=== PATIENT | male | born 1950 | race Caucasian/White ===

== ENCOUNTER 2022-07-18 13:07 | Outpatient (REF) | payer MEDICARE, SELFPAY ==
--- NOTE | ~2022-07-18 | MR_ITS ---
EXAMINATION: MR LUMBAR SPINE WITHOUT AND WITH CONTRAST CLINICAL INFORMATION: Lumbar radiculopathy. COMPARISON: Lumbar spine MRI 07/16/2016. TECHNIQUE: Multiplanar MR imaging of the lumbar spine was performed without and with contrast. Total of 10 mL Gadavist was utilized for this examination. FINDINGS: There is grade 1 anterolisthesis of L5 on S1 related to bilateral L5 pars interarticularis defects. Alignment is otherwise normal. Vertebral heights are preserved. No acute bone marrow signal changes. There is slight loss of intervertebral disc height and T2 signal intensity at multiple levels related to disc degeneration. The tip of the conus medullaris is located at L1. No mass effect on the conus. Visualized distal cord signal intensity is normal. At L1-L2 there is a slightly bulging disc. No canal stenosis. No mass effect on the traversing or foraminal nerve roots. At L2-L3 there is a slightly bulging disc. No canal stenosis. No mass effect on the traversing or foraminal nerve roots. At L3-L4 there is a diffusely bulging disc. Bilateral facet degenerative change. Mild canal stenosis. Subarticular zone narrowing causing medial displacement and possible compression of both traversing L4 nerve roots. There is moderate compression of the left L3 foraminal nerve root and mild compression of the right L3 foraminal nerve root. At L4-L5 there are chronic postoperative changes of a right hemilaminectomy. There is a diffusely bulging disc. Bilateral facet degenerative change. No canal stenosis. Subtle abutment of the right traversing L5 nerve roots. Mild compression of the right L4 foraminal nerve root. At L5-S1 there is a pseudodisc bulge. Bilateral facet degenerative change. No canal stenosis. Yutwlvyq-zv-rbwiag compression of both L5 foraminal nerve roots. Limited visualization of the retroperitoneal anatomy reveals a few well marginated benign-appearing cystic lesions within both kidneys. Psoas and paraspinal muscle groups are symmetric. MR/MR lumbar spine wo/w con IMPRESSION: There is grade 1 anterolisthesis of L5 on S1 related to bilateral L5 pars interarticularis defects. Consequently there is beqmaamo-wp-zzlwop compression of both L5 foraminal nerve roots. There is also moderate compression of the left L3 foraminal nerve root related to degenerative changes at L3-L4. Mild canal stenosis at L3-L4. Otherwise no canal compromise.
== END 2022-07-18 13:08 | disposition home or self-care (01) ==
LOC: HO.MRI 13:07
PROVIDERS: PCP Internal Medicine Medical Oncology; Visit Provider Internal Medicine Medical Oncology
DX: M54.16 Radiculopathy, lumbar region (principal)
CPT/HCPCS: 72158; A9585

== ENCOUNTER 2022-12-11 10:07 | Outpatient (REF) | payer MEDICARE, SELFPAY ==
[2022-12-11 10:38] LABS: MANUAL DIFF FLAG NO
[2022-12-11 12:48] LABS: Basophils Percent Auto 0.7 % (0-2); Eosinophils Absolute Auto 0.2 X10*3/uL (0.0-0.4); Eosinophils Percent Auto 3.1 % (0-4); Hematocrit 42.9 % (42.0-52.0); Hemoglobin 13.6 g/dl (14.0-18.0); Imm Gran Abs Auto 0.01 X10*3/uL (0.00-0.03); Imm Gran Pct Auto 0.2 % (0.0-0.4); Lymphocytes Absolute Auto 1.4 X10*3/uL (1.2-4.9); Lymphocytes Percent Auto 24.8 % (20-40); Mean Corpuscular HGB Conc 31.7 g/dl (31.0-36.0); Mean Corpuscular Hemoglobin 27.9 pg (27.0-33.0); Mean Corpuscular Volume 87.9 fL (80.0-98.0); Mean Platelet Volume 11.7 fL (9.4-12.4); Monocytes Absolute Auto 0.5 X10*3/uL (0.1-1.2); Monocytes Percent Auto 8.5 % (2-11); Neutrophils Absolute Auto 3.5 x10*3/uL (2.0-8.3); Neutrophils Percent Auto 62.7 % (45-73); Platelet Count 165 X10*3/uL (160-400); Red Blood Count 4.88 X10*6/uL (4.60-5.80); White Blood Count 5.5 X10*3/uL (4.8-10.8)
[2022-12-11 13:22] LABS: Alanine Aminotransferase 22 U/L (0-40); Albumin Level 3.9 g/dL (3.5-5.0); Alkaline Phosphatase 98 U/L (39-117); Anion Gap 13 (12-20); Aspartate Amino Transferase 25 U/L (5-37); Bilirubin Total 0.8 mg/dL (0.0-1.0); Blood Urea Nitrogen 17 mg/dL (9-16); Calcium 9.1 mg/dL (8.4-10.2); Carbon Dioxide 27 mmol/L (22-29); Chloride 104 mmol/L (96-108); Cholesterol 137 mg/dL (<200); Estimated Glomerular Filt Rate > 60; Glucose Fasting 94 mg/dL (60-99); HDL Cholesterol 55 mg/dL (>40); LDL Cholesterol Calculated 71 mg/dL (<100); Potassium 3.8 mmol/L (3.3-5.1); Sodium 140 mmol/L (135-145); Total Protein 6.4 g/dL (6.5-8.0); Triglycerides 55 mg/dL (<150)
[2022-12-11 13:40] LABS: Prostate Specific Antigen 1.03 ng/mL (<0.05-4.0)
[2022-12-16 14:18] LABS: Testosterone, Total 235 ng/dL (250-1100)
== END 2022-12-11 10:08 | disposition home or self-care (01) ==
LOC: HO.LAB 10:07
PROVIDERS: PCP Internal Medicine Medical Oncology; Visit Provider Internal Medicine Medical Oncology
DX: E78.5 Hyperlipidemia, unspecified (principal); G47.30 Sleep apnea, unspecified; K21.9 Gastro-esophageal reflux disease without esophagitis; N52.9 Male erectile dysfunction, unspecified; E29.1 Testicular hypofunction; Z12.5 Encounter for screening for malignant neoplasm of prostate
CPT/HCPCS: 36415; 80053; 80061; 84153; 84403; 85025

== ENCOUNTER 2023-06-26 09:52 | Outpatient (REF) | payer MEDICARE, SELFPAY ==
[2023-06-26 10:08] LABS: MANUAL DIFF FLAG NO
[2023-06-26 10:46] LABS: Basophils Percent Auto 0.6 % (0-2); Eosinophils Absolute Auto 0.2 X10*3/uL (0.0-0.4); Eosinophils Percent Auto 3.2 % (0-4); Hematocrit 44.1 % (42.0-52.0); Hemoglobin 14.1 g/dl (14.0-18.0); Imm Gran Abs Auto 0.02 X10*3/uL (0.00-0.03); Imm Gran Pct Auto 0.3 % (0.0-0.4); Lymphocytes Absolute Auto 1.3 X10*3/uL (1.2-4.9); Lymphocytes Percent Auto 21.4 % (20-40); Mean Corpuscular Volume 87.7 fL (80.0-98.0); Mean Platelet Volume 10.8 fL (9.4-12.4); Monocytes Absolute Auto 0.5 X10*3/uL (0.1-1.2); Monocytes Percent Auto 8.3 % (2-11); Neutrophils Absolute Auto 4.1 x10*3/uL (2.0-8.3); Neutrophils Percent Auto 66.2 % (45-73); Platelet Count 193 X10*3/uL (160-400); Red Blood Count 5.03 X10*6/uL (4.60-5.80); Red Cell Distribution Width 13.6 % (11.0-16.0); White Blood Count 6.2 X10*3/uL (4.8-10.8)
[2023-06-26 11:25] LABS: Alanine Aminotransferase 29 U/L (0-40); Albumin Level 3.9 g/dL (3.5-5.0); Alkaline Phosphatase 117 U/L (39-117); Anion Gap 11 (12-20); Aspartate Amino Transferase 31 U/L (5-37); Blood Urea Nitrogen 18 mg/dL (9-16); Calcium 9.2 mg/dL (8.4-10.2); Carbon Dioxide 29 mmol/L (22-29); Chloride 104 mmol/L (96-108); Cholesterol 144 mg/dL (<200); Estimated Glomerular Filt Rate > 60; Glucose Fasting 104 mg/dL (60-99); HDL Cholesterol 57 mg/dL (>40); LDL Cholesterol Calculated 76 mg/dL (<100); Sodium 139 mmol/L (135-145); Total Protein 6.8 g/dL (6.5-8.0); Triglycerides 56 mg/dL (<150)
[2023-06-26 11:30] LABS: Prostate Specific Antigen 1.96 ng/mL (<0.05-4.0)
== END 2023-06-26 09:53 | disposition home or self-care (01) ==
LOC: HO.LAB 09:52
PROVIDERS: PCP Internal Medicine Medical Oncology; Visit Provider Internal Medicine Medical Oncology
DX: Z12.5 Encounter for screening for malignant neoplasm of prostate (principal); E78.5 Hyperlipidemia, unspecified; E66.9 Obesity, unspecified; N40.0 Benign prostatic hyperplasia without lower urinary tract symptoms
CPT/HCPCS: 36415; 80053; 80061; 84153; 85025

== ENCOUNTER 2024-01-15 10:21 | Outpatient (AMB) | payer MEDICARE, SELFPAY ==
[2024-01-15 10:24] VITALS: BP 124/60; PULSE 66; O2SAT 95
--- NOTE | 2024-01-15 10:24 | MHC.OFFVIS ---
Vital Signs 01/15/24 10:24 Weight 227 lb 1.218 oz BP 124/60 Blood Pressure Location Lt brachial Position Sitting Pulse 66 Pulse Source Pulse Oximeter Pulse Oximetry (%) 95 Oxygen Delivery Method Room Air Intake Visit Reasons: Sleep apnea Allergies latex [LATEX] Allergy (Unknown, Unverified 01/15/24 10:28) HIVES Medication List - Last Reconciled 01/15/24 by Rebecca Noriega LPN amlodipine 5 mg PO DAILY atorvastatin 80 mg PO DAILY clopidogrel 75 mg PO DAILY loratadine (Claritin) 10 mg PO DAILY rivaroxaban (Xarelto) 20 mg PO DAILY HPI Comments Details: The patient is here for pulmonary evaluation. The patient is a 73-year-old gentleman with a known history of left-sided paralyzed diaphragm and obstructive sleep apnea. Patient states that he has been using his CPAP every night. CPAP therapy has been affecting beneficial. He does use it for more than 4 hours a night. He does get supplies through his [employer] company, [employer]. I did call them and did send a script for him to continue getting supplies. In the meantime I did download the machine. His AHI is down to less than 1 which is reassuring. Current pressures are adequate. Therefore we have to adjust anything at this time. His machine seems to be worse in working order will continue , but, sometimes he wakes up with the machine. It may be that his pressures are going up and he wakes up from the pressures. In the meantime he does have issues with shortness of breath at times. Unfortunately he did gain some weight since we last spoke. The patient also has had issues with the elevated diaphragm on the left. The patient is also said pulmonary nodules. He did have a chest x-ray which I did review from 07/29/2023 at [facility] which is considered abnormal with elevated hemidiaphragm. Therefore, I will request a CT scan of the chest to better address the elevated diaphragm in the atelectasis and also better assess his pulmonary nodules. The patient also has a postnasal drip. He does have underlying allergies. Will further treat him with optimizing his medications. He will be helpful to get some pulmonary function studies to assess his lung capacity at this time. Therefore, will continue using the CPAP. I did decrease the maximum pressure from 16-12. He will get a CT scan and PFTs and will follow-up. [facility] Medical History (Updated 01/15/24 @ 19:56 by John Campbell MD) Dyspnea Chronic allergic rhinitis Pulmonary nodules Abnormal chest x-ray Paralysis, diaphragm Chronic cough ROBIN on CPAP Social History (Updated 01/15/24 @ 10:31 by Rebecca Noriega LPN) Patient Tobacco Use Status: Former Tobacco user Tobacco use type: Cigarette Years Smoked: 25 Review of Systems Const Reports difficulty sleeping and Reports weight gain Eyes Reports no additional complaints ENT Reports nasal congestion, Reports nasal discharge and Reports post nasal drip Card Denies chest pain Resp Reports cough and Denies wheezing GI Denies heartburn Musc Reports no additional complaints Skin/Breast Denies rash Neuro Reports no additional complaints Jorge Luis/Lymph Reports no additional complaints Aller/Immun Denies wheezing Physical Exam Vital Signs: Last Vital Signs Pulse 66 01/15/24 10:24 BP 124/60 01/15/24 10:24 Pulse Ox 95 01/15/24 10:24 Oxygen Delivery Method Room Air 01/15/24 10:24 Const General: comfortable HEENT General nose exam: Abnormal mucous membranes and turbinates present boggy Neck Neck: Yes supple Chest Chest palpation & inspection: normal inspection of the chest Resp Effort & Inspection: normal respiratory effort Auscultation: diminished lung sounds Cardio Heart sounds: S1 normal heart sound present and S2 normal heart sound present GI Palpation (GI): Soft to palpation Skin General skin exam: no rashes or lesions noted Extrem General: No clubbing, No cyanosis and Yes edema Immunizations pneumoc 20-vivek conj-dip cr(PF) 0.5 mL IM syringe Performing Provider: John Campbell MD Performing Location: [facility] Administered by: Rebecca Noriega LPN on 01/15/24 11:12 Dose Route Admin Location Dispensed Lot Number Expiration Date NDC Hotel Manager 0.5 mL IM Left Deltoid 0.5 mL [id number] 03/10/25 1565-7189-35 [employer] VIS Given Date VIS Provided VIS Publication Date 01/15/24 Single Vaccine 22 Eligibility Eligibility Date Funding Source Not [facility] Eligible 01/15/24 Private Assessment & Plan Assessment & Plan (1) ROBIN on CPAP: Code(s): G47.33 - Obstructive sleep apnea (adult) (pediatric) Category: Medical (2) Chronic cough: Code(s): R05.3 - Chronic cough Category: Medical (3) Paralysis, diaphragm: Code(s): J98.6 - Disorders of diaphragm Category: Medical (4) Abnormal chest x-ray: Code(s): R93.89 - Abnormal findings on diagnostic imaging of other specified body structures Category: Medical (5) Pulmonary nodules: Code(s): R91.8 - Other nonspecific abnormal finding of lung field Category: Medical (6) Chronic allergic rhinitis: Code(s): J30.9 - Allergic rhinitis, unspecified Category: Medical (7) Dyspnea: Code(s): R06.00 - Dyspnea, unspecified Category: Medical Qualifiers: Dyspnea type: dyspnea on exertion Qualified Code(s): R06.09 - Other forms of dyspnea Plan continue APAP, adjusted pressures 6-[address] chest continue nasocort add Astelin nasal spray neti bottle rinsing at night weight management prevnar 20 vaccine Orders: Orders Pneumococcal 20 Immunization Today Z23 - Encounter for immunization CT chest wo IV con Today J98.6 - Disorders of diaphragm, R05.3 - Chronic cough, R91.8 - Other nonspecific abnormal finding of lung field, R93.89 - Abnormal findings on diagnostic imaging of other specified body structures PFT pulmonary function test Today J98.6 - Disorders of diaphragm, R05.3 - Chronic cough, R91.8 - Other nonspecific abnormal finding of lung field, R93.89 - Abnormal findings on diagnostic imaging of other specified body structures Medications: New azelastine administer into each nostril 2 sprays intranasal BID 30 days 30 mL 6RF Coding Level of Care Code New Pt Level 4 (22691) Diagnoses ROBIN on CPAP G47.33 Chronic cough R05.3 Paralysis, diaphragm J98.6 Abnormal chest x-ray R93.89 Pulmonary nodules R91.8 Chronic allergic rhinitis J30.9 Dyspnea on exertion R06.09 Dyspnea type: dyspnea on exertion Time Spent (min) 40
== END 2024-01-15 11:18 | disposition home or self-care (01) ==
LOC: HO.HPS 10:22
PROVIDERS: PCP Internal Medicine Medical Oncology; Referring Provider Internal Medicine Medical Oncology; Visit Provider Hospitalist
DX: G47.33 Obstructive sleep apnea (adult) (pediatric) (principal); R05.3 Chronic cough; J98.6 Disorders of diaphragm; R93.89 Abnormal findings on diagnostic imaging of other specified body structures; R91.8 Other nonspecific abnormal finding of lung field; J30.9 Allergic rhinitis, unspecified; R06.09 Other forms of dyspnea; Z23 Encounter for immunization
CPT/HCPCS: 99204

== ENCOUNTER → 2024-01-15 10:21 | Outpatient (BNVA) | payer MEDICARE, SELFPAY | PROVIDERS: PCP Internal Medicine Medical Oncology; Referring Provider Internal Medicine Medical Oncology; Visit Provider Hospitalist | DX: G47.33 Obstructive sleep apnea (adult) (pediatric) (principal); J98.6 Disorders of diaphragm; J30.9 Allergic rhinitis, unspecified; R05.3 Chronic cough; R91.8 Other nonspecific abnormal finding of lung field; R93.89 Abnormal findings on diagnostic imaging of other specified body structures; R06.09 Other forms of dyspnea; Z23 Encounter for immunization; Z99.89 Dependence on other enabling machines and devices | CPT/HCPCS: 90471; 90677; 99202 ==

== ENCOUNTER 2024-02-18 07:28 | Outpatient (REF) | payer MEDICARE, SELFPAY ==
--- OUTSIDE RECORDS SUMMARY | 2024-02-19 18:35 | XMS_ITS | Patient Health Record ---
Author Organization [facility] Address [address] [place] [address] Care Team Providers Care Derivatives Trader Name Role Phone Wally Carter Primary Care Provider Unavailabl e ALLERGIES Allergen (clinical drug ingredient) Drug/Non Drug Allergy documented on EMR Reaction Allergy Type Onset Date Status Latex Latex Unknown Allergy Active REASON FOR REFERRAL No Information MEDICATIONS Medication SIG (Take, Route, Frequency, Duration) Notes Start Date End Date Status Metoprolol Tartrate 25 MG 1 tablet with food Orally Twice a day Active Clopidogrel Bisulfate 75 MG 1 tablet Orally Once a day Active Ciclopirox 8 % 1 application Externally to toenails Once a day for 365 days 03/16/2020 03/15/2024 Not-Taking Atorvastatin Calcium 10 MG 1 tablet Orally Once a day Active Ipratropium-Albuterol 0.5-2.5 (3) MG/3ML 3 ml as needed Inhalation every 6 hrs Active Budesonide (Nasal) A ctive Omeprazole 20 MG 1 capsule 30 minutes before morning meal Orally Once a day Active Rivaroxaban Active PLAN OF TREATMENT Pending Test Test Name Order Date Debridement of toenail 1-5 04/12/2020 Insurance Providers Payer Name Payer Address Payer Phone Subscriber Number Group Number Insured Name Patient Relationship to Insured Coverage Start Date Coverage End Date [employer] [address] [address] [place] [address] [phone] [id number] Darinel Boyer Self - patient is the insured MEDICAL (GENERAL) HISTORY Medical History History ICD Code Pulmonary nodule Pneumonia Obstructive sleep apnea Allergic rhinitis Hyperlipidemia Atrial fibrillation Degenerative disease of the lumbar spine Coronary Artery Disease Surgical History Surgery Date(Month/Year) Historical lumbar spine surgery Historical Cardiac stent
== END 2024-02-18 07:29 | disposition home or self-care (01) ==
LOC: HO.CT 07:28
PROVIDERS: PCP Internal Medicine Medical Oncology; Visit Provider Hospitalist
DX: R93.89 Abnormal findings on diagnostic imaging of other specified body structures (principal); J98.6 Disorders of diaphragm; R91.8 Other nonspecific abnormal finding of lung field; R05.3 Chronic cough
CPT/HCPCS: 71250

== ENCOUNTER 2024-02-25 10:59 | Outpatient (REF) | payer MEDICARE, SELFPAY ==
[2024-02-25 11:11] VITALS: PULSE 59; O2SAT 98
--- OUTSIDE RECORDS SUMMARY | 2024-02-25 11:24 | XMS_ITS | Patient Health Record ---
Author Organization [facility] Address [address] [place] [address] Care Team Providers Care Coater Smoking Pipe Name Role Phone Wally Carter Primary Care [...] Date Coverage End Date [employer] [address] [address] [place] [address] [id number] Darinel Boyer Self - patient is the insured MEDICAL (GENERAL) HISTORY Medical History History ICD Code Pulmonary nodule Pneumonia Obstructive sleep apnea Allergic rhinitis Hyperlipidemia Atrial fibrillation Degenerative disease of the lumbar spine Coronary Artery Disease Surgical History Surgery Date(Month/Year) Historical lumbar spine surgery Historical Cardiac stent
--- NOTE | 2024-02-25 11:41 | PFT_ITS ---
Flows: FEV1: 94 % of predicted at 2.66 L FVC: 91 % of predicted at 3.39 L FEV1/FVC: 78 % Bronchodilator response: Present in small to medium airways only Volumes: Total lung capacity: 82 % of predicted at 5.27 L Residual volume: 75 % of predicted at 1.76 L Slow vital capacity: 87 % of predicted at 3.51 L Expiratory reserve volume: 0 % of predicted at 0 L Diffusion capacity: Normal Impression: No obstructive or restrictive ventilatory defect. Bronchodilator response is present in small to medium airways only. Decreased expiratory reserve volume suggests extrathoracic restriction likely secondary to abdominal obesity. MTDD
== END 2024-02-25 11:00 | disposition home or self-care (01) ==
LOC: HO.RESP 10:59
PROVIDERS: PCP Internal Medicine Medical Oncology; Visit Provider Hospitalist
DX: R93.89 Abnormal findings on diagnostic imaging of other specified body structures (principal); J98.6 Disorders of diaphragm; R05.3 Chronic cough; R91.8 Other nonspecific abnormal finding of lung field
CPT/HCPCS: 94010; 94640; 94727; 94729

== ENCOUNTER → 2024-02-25 11:41 | Outpatient (BNV) | payer MEDICARE, SELFPAY | PROVIDERS: PCP Internal Medicine Medical Oncology; Visit Provider Internal Medicine Pulmonary Disease | DX: R05.3 Chronic cough (principal); J98.6 Disorders of diaphragm; J91.8 Pleural effusion in other conditions classified elsewhere | CPT/HCPCS: 94060; 94727; 94729 ==

== ENCOUNTER 2024-03-19 09:56 | Outpatient (AMB) | payer MEDICARE, SELFPAY ==
--- NOTE | 2024-03-19 10:08 | A.OFFVIS_ITS ---
Vital Signs 03/19/24 10:09 Height 5 ft 8 in Weight 236 lb 15.951 oz BMI 36.0 BP 118/70 Blood Pressure Location Rt brachial Position Sitting Pulse 63 Pulse Source Pulse Oximeter Pulse Oximetry (%) 97 Oxygen Delivery Method Room Air Intake Visit Reasons: Sleep apnea/PFT/CT Chest Follow Up Allergies latex [LATEX] Allergy (Unknown, Unverified 03/19/24 10:12) HIVES HPI Comments Details: The patient is a 73-year-old gentleman with a known history of left-sided paralyzed diaphragm and obstructive sleep apnea. Patient states that he has been using his CPAP every night. CPAP therapy has been affecting beneficial. He does use it for more than 4 hours a night. He does get supplies through his [employer] company, [employer]. I did call them and did send a script for him to continue getting supplies. In the meantime I did download the machine. His AHI is down to less than 1 which is reassuring. Current pressures are adequate. Therefore we have to adjust anything at this time. His machine seems to be worse in working order will continue , but, sometimes he wakes up with the machine. It may be that his pressures are going up and he wakes up from the pressures. In the meantime he does have issues with shortness of breath at times. Unfortunately he did gain some weight since we last spoke. The patient also has had issues with the elevated diaphragm on the left. The patient is also said pulmonary nodules. He did have a chest x-ray which I did review from 07/29/2023 at [facility] which is considered abnormal with elevated hemidiaphragm. Therefore, I will request a CT scan of the chest to better address the elevated diaphragm in the atelectasis and also better assess his pulmonary nodules. The patient also has a postnasal drip. He does have underlying allergies. Will further treat him with optimizing his medications. He will be helpful to get some pulmonary function studies to assess his lung capacity at this time. Therefore, will continue using the CPAP. I did decrease the maximum pressure from 16-12. He will get a CT scan and PFTs and will follow-up. 03/19/2024 the patient is here for a pulmonary follow-up visit. Overall the patient has been doing well. He still has some dyspnea on exertion ashh-ab-bpwhdiez severity. We did review his pulmonary function studies which were reassuring. He does have a low normal total lung capacity and a low-normal diffusing capacity. In part due to his elevated hemidiaphragm. He did have a CT scan of the chest also though we personally reviewed. He has few pulmonary nodules that appear to be benign. Although we have to compare them to the previous CT scan that he had back at [facility]. In addition to that the atelectasis is persistent on the left base and no evidence of any significant disease there. The patient is going to work on exercise and also on weight loss to try to decrease the abdominal pressure and allow the lung to expand better. Otherwise will continue with current CPAP therapy. The CPAP therapy continues to be affecting beneficial and he use more than 4 hours a night. Will follow-up in a year's time with a repeat CT scan to follow-up with the pulmonary nodules. [facility] Medical History (Updated 01/15/24 @ 19:56 by John Campbell MD) Dyspnea Chronic allergic rhinitis Pulmonary nodules Abnormal chest x-ray Paralysis, diaphragm Chronic cough ROBIN on CPAP Social History Patient Tobacco Use Status: Former Tobacco user Tobacco use type: Cigarette Years Smoked: 25 Review of Systems Const Reports difficulty sleeping and Reports weight gain Eyes Reports no additional complaints ENT Reports nasal congestion, Reports nasal discharge and Reports post nasal drip Card Denies chest pain Resp Reports cough and Denies wheezing GI Denies heartburn Musc Reports no additional complaints Skin/Breast Denies rash Neuro Reports no additional complaints Jorge Luis/Lymph Reports no additional complaints Aller/Immun Denies wheezing Physical Exam Vital Signs: Last Vital Signs Pulse 63 03/19/24 10:09 BP 118/70 03/19/24 10:09 Pulse Ox 97 03/19/24 10:09 Oxygen Delivery Method Room Air 03/19/24 10:09 BMI result Body Mass Index 36.0 Const General: comfortable HEENT General nose exam: Abnormal mucous membranes and turbinates present boggy Neck Neck: Yes supple Chest Chest palpation & inspection: normal inspection of the chest Resp Effort & Inspection: normal respiratory effort Auscultation: diminished lung sounds Cardio Heart sounds: S1 normal heart sound present and S2 normal heart sound present GI Palpation (GI): Soft to palpation Skin General skin exam: no rashes or lesions noted Extrem General: No clubbing, No cyanosis and Yes edema Assessment & Plan Assessment & Plan (1) ROBIN on CPAP: Code(s): G47.33 - Obstructive sleep apnea (adult) (pediatric) Category: Medical (2) Chronic cough: Code(s): R05.3 - Chronic cough Category: Medical (3) Paralysis, diaphragm: Code(s): J98.6 - Disorders of diaphragm Category: Medical (4) Pulmonary nodules: Code(s): R91.8 - Other nonspecific abnormal finding of lung field Category: Medical (5) Chronic allergic rhinitis: Code(s): J30.9 - Allergic rhinitis, unspecified Category: Medical (6) Dyspnea: Code(s): R06.00 - Dyspnea, unspecified Category: Medical Qualifiers: Dyspnea type: dyspnea on exertion Qualified Code(s): R06.09 - Other forms of dyspnea Plan continue APAP, adjusted pressures 6-12 CT chest, need to compare to [facility] CT chest. If nodules are new will need a follow up CT chest in 1 year continue nasocort Astelin nasal spray neti bottle rinsing at night weight management prevnar 20 vaccine Increase exercise start [place] as needed start Zpack if cough worsens F/U 1 year Medications: New albuterol sulfate 90 mcg/actuation 2 inhalations inhalation Q6H PRN 18 grams 12RF shortness of breath or wheezing 30 days J44.9 - Chronic obstructive pulmonary disease, unspecified azithromycin 500 mg PO DAILY 5 tabs 0RF 5 days Coding Level of Care Code Est Pt Level 4 (40741) Diagnoses ROBIN on CPAP G47.33 Chronic cough R05.3 Paralysis, diaphragm J98.6 Pulmonary nodules R91.8 Chronic allergic rhinitis J30.9 Dyspnea on exertion R06.09 Dyspnea type: dyspnea on exertion Time Spent (min) 17
[2024-03-19 10:09] VITALS: BP 118/70; PULSE 63; O2SAT 97; BMI 36.0
== END 2024-03-19 11:02 | disposition home or self-care (01) ==
PROVIDERS: PCP Internal Medicine Medical Oncology; Visit Provider Hospitalist
DX: G47.33 Obstructive sleep apnea (adult) (pediatric) (principal); R05.3 Chronic cough; J98.6 Disorders of diaphragm; R91.8 Other nonspecific abnormal finding of lung field; J30.9 Allergic rhinitis, unspecified; R06.09 Other forms of dyspnea
CPT/HCPCS: 99214

== ENCOUNTER → 2024-03-19 09:56 | Outpatient (BNVA) | payer MEDICARE, SELFPAY | PROVIDERS: PCP Internal Medicine Medical Oncology; Visit Provider Hospitalist | DX: G47.33 Obstructive sleep apnea (adult) (pediatric) (principal); R05.3 Chronic cough; R91.8 Other nonspecific abnormal finding of lung field; R06.09 Other forms of dyspnea; J98.6 Disorders of diaphragm; J30.9 Allergic rhinitis, unspecified | CPT/HCPCS: 99212 ==

== ENCOUNTER 2024-05-04 13:07 | Outpatient (AMB) | payer MEDICARE, SELFPAY ==
[2024-05-04 13:13] VITALS: BP 128/60; PULSE 73; O2SAT 98; BMI 34.7
--- NOTE | 2024-05-04 13:13 | MHC.OFFVIS ---
Vital Signs 05/04/24 13:13 Height 5 ft 8 in Weight 228 lb 2.855 oz BMI 34.7 BP 128/60 Blood Pressure Location Lt brachial Position Sitting Pulse 73 Pulse Source Pulse Oximeter Pulse Oximetry (%) 98 Oxygen Delivery Method Room Air Intake Visit Reasons: continuing cough and chest tightness Allergies latex [LATEX] Allergy (Unknown, Unverified 05/04/24 13:16) HIVES HPI Comments Details: The patient is a 74-year-old gentleman with a known history of left-sided paralyzed diaphragm and obstructive sleep apnea. Patient states that he has been using his CPAP every night. CPAP therapy has been affecting beneficial. He does use it for more than 4 hours a night. He does get supplies through his [employer] company, [employer]. I did call them and did send a script for him to continue getting supplies. In the meantime I did download the machine. His AHI is down to less than 1 which is reassuring. Current pressures are adequate. Therefore we have to adjust anything at this time. His machine seems to be worse in working order will continue , but, sometimes he wakes up with the machine. It may be that his pressures are going up and he wakes up from the pressures. In the meantime he does have issues with shortness of breath at times. Unfortunately he did gain some weight since we last spoke. The patient also has had issues with the elevated diaphragm on the left. The patient is also said pulmonary nodules. He did have a chest x-ray which I did review from 07/29/2023 at [facility] which is considered abnormal with elevated hemidiaphragm. Therefore, I will request a CT scan of the chest to better address the elevated diaphragm in the atelectasis and also better assess his pulmonary nodules. The patient also has a postnasal drip. He does have underlying allergies. Will further treat him with optimizing his medications. He will be helpful to get some pulmonary function studies to assess his lung capacity at this time. Therefore, will continue using the CPAP. I did decrease the maximum pressure from 16-12. He will get a CT scan and PFTs and will follow-up. 03/19/2024 the patient is here for a pulmonary follow-up visit. Overall the patient has been doing well. He still has some dyspnea on exertion [id number] severity. We did review his pulmonary function studies which were reassuring. He does have a low normal total lung capacity and a low-normal diffusing capacity. In part due to his elevated hemidiaphragm. He did have a CT scan of the chest also though we personally reviewed. He has few pulmonary nodules that appear to be benign. Although we have to compare them to the previous CT scan that he had back at [facility]. In addition to that the atelectasis is persistent on the left base and no evidence of any significant disease there. The patient is going to work on exercise and also on weight loss to try to decrease the abdominal pressure and allow the lung to expand better. Otherwise will continue with current CPAP therapy. The CPAP therapy continues to be affecting beneficial and he use more than 4 hours a night. Will follow-up in a year's time with a repeat CT scan to follow-up with the pulmonary nodules. 05/04/2024 the patient is here for a sick visit. He has been coughing so last evaluated him. He was placed on prednisone also Z-Jim. Although he is not significantly better. Still coughing primarily at nighttime. At times is productive. Having hard time sleeping. No fevers or chills. Denies any chest pain. He does have a rescue inhaler that he has use seldom. He is going to start using a little bit more. Will try a nebulizer treatment in the office. Will start him on doxycycline and also cough medication. If the patient is no better we can also start him back on prednisone and also consider a steroid inhaler. His last CT scan was reassuring. Right now I do not appreciate any crackles or focal examination. He does have some postablation cough. [facility] Medical History (Updated 05/04/24 @ 17:41 by John Campbell MD) Dyspnea Chronic allergic rhinitis Pulmonary nodules Abnormal chest x-ray Paralysis, diaphragm Chronic cough ROBIN on CPAP Social History Patient Tobacco Use Status: Former Tobacco user Tobacco use type: Cigarette Years Smoked: 25 Review of Systems Const Reports difficulty sleeping and Reports weight gain Eyes Reports no additional complaints ENT Reports nasal congestion, Reports nasal discharge and Reports post nasal drip Card Denies chest pain Resp Reports cough and Reports wheezing GI Denies heartburn Musc Reports no additional complaints Skin/Breast Denies rash Neuro Reports no additional complaints Jorge Luis/Lymph Reports no additional complaints Aller/Immun Reports wheezing Physical Exam Vital Signs: Last Vital Signs Pulse 73 05/04/24 13:13 BP 128/60 05/04/24 13:13 Pulse Ox 98 05/04/24 13:13 Oxygen Delivery Method Room Air 05/04/24 13:13 BMI result Body Mass Index 34.7 Const General: comfortable HEENT General nose exam: Abnormal mucous membranes and turbinates present boggy Neck Neck: Yes supple Chest Chest palpation & inspection: normal inspection of the chest Resp Effort & Inspection: normal respiratory effort and Actively coughing Auscultation: wheezes and diminished lung sounds Cardio Heart sounds: S1 normal heart sound present and S2 normal heart sound present GI Palpation (GI): Soft to palpation Skin General skin exam: no rashes or lesions noted Extrem General: No clubbing, No cyanosis and Yes edema Assessment & Plan Assessment & Plan (1) ROBIN on CPAP: Code(s): G47.33 - Obstructive sleep apnea (adult) (pediatric) Category: Medical (2) Chronic cough: Code(s): R05.3 - Chronic cough Category: Medical (3) Paralysis, diaphragm: Code(s): J98.6 - Disorders of diaphragm Category: Medical (4) Pulmonary nodules: Code(s): R91.8 - Other nonspecific abnormal finding of lung field Category: Medical (5) Chronic allergic rhinitis: Code(s): J30.9 - Allergic rhinitis, unspecified Category: Medical (6) Dyspnea: Code(s): R06.00 - Dyspnea, unspecified Category: Medical Qualifiers: Dyspnea type: dyspnea on exertion Qualified Code(s): R06.09 - Other forms of dyspnea (7) Bronchitis: Code(s): J40 - Bronchitis, not specified as acute or chronic Category: Medical Plan continue APAP, adjusted pressures 6-12 CT chest, need to compare to [facility] CT chest. If nodules are new will need a follow up CT chest in 1 year continue nasocort Astelin nasal spray neti bottle rinsing at night weight management BOSTON as needed/ Albuterol vis nebulizer start Doxycycline cough medicine consider Symbicort F/U 4 months Medications: New albuterol sulfate 2.5 mg (3 mL) inhalation Q6H PRN 90 mL 11RF shortness of breath or wheezing 30 days doxycycline hyclate 100 mg PO BID 20 caps 0RF 10 days codeine-guaifenesin 10-100 mg/5 mL 10 mL PO Q6H PRN 300 mL 0RF cough 10 days Coding Level of Care Code Est Pt Level 4 (51441) Diagnoses ROBIN on CPAP G47.33 Chronic cough R05.3 Paralysis, diaphragm J98.6 Pulmonary nodules R91.8 Chronic allergic rhinitis J30.9 Dyspnea on exertion R06.09 Dyspnea type: dyspnea on exertion Bronchitis J40 Time Spent (min) 16
--- OUTSIDE RECORDS SUMMARY | 2024-05-04 14:57 | XMS_ITS | Encounter Summary ---
Author Organization [facility] Address [address] [place] [address] Care Team Providers Care Optical Coating Technician Name Role Phone Wally Carter MD Primary Care Provider Reason for Visit * Reason Comments Follow-up Encounter Details Date Type Department Care Team (Late st Contact Info) Description 04/28/2024 10:40 AM EST Office Visit [facility] [address] [place] [phone] Ashley Yañez NP [address] [place] [address] [address] [place] [address] Atrial fibrillation, unspecified type (CMS/HCC) (Primary Dx) Social History Tobacco Use Types Packs/Day Years Used Date Smoking Tobacco: Former Cigarettes Q uit: 03/11/1984 Smokeless Tobacco: Never Alcohol Use Standard Drinks/Week Comments Yes 0 (1 standard drink = 0.6 oz pur e alcohol) occ Sex and Gender Information Value Date Recorded Sex Assigned at Not on file Legal Sex Male 10:32 PM EST Gender Identity Not on file Sexual Orientation Not on file documented as of this encounter Last Filed Vital Signs Vital Sign Reading Time Taken Comments Blood Pressure 142/82 04/28/2024 10:42 AM EST Pulse 66 04/28/2024 10:42 AM EST Temperature - - Respiratory Rate - - Oxygen Saturation 94% 04/28/2024 10:42 AM EST Inhaled Oxygen Concentration - - Weight 103 kg (228 lb 1.6 oz) 04/28/2024 10:42 A M EST Height - - Body Mass Index 35.73 02/05/2024 9:23 AM EST documented in this encounter Progress Notes * Ashley Yañez, SEED SPECIALIST - 04/28/2024 10:40 AM EST Images from the original note were not included. [facility] PRIMARY ASSISTANT BASKETBALL COACH: Warren Reyes MD PCP: Wally Carter MD HPI: Darinel Boyer is a 74 y.o. old male with coronary artery diseases s/p angioplasty and LANNY to the LAD 09/2019, hypertension, hyperipidemia, atrial fibrillation on Xarelto and ROBIN on CPAP. Patient's last echocardiogram completed 10/2019 showed normal left ventricular chamber size and wallthickness with an LVEF of 60 to 65%. There was no aortic stenosis with mild aortic regurgitation. Holter monitor completed 09/2020 showing sinus rhythm with sinus bradycardia HR 41-121 bpm with average HR of 60 bpm. Recently stopped beta julita due to bradycardia. Coronary CTA completed 04/2023. This showed normal left main, left anterior descending with moderatecalcified plaque burden in the proximal LAD with less than 40% stenosis in the proximal LAD. The stented proximal LAD to mid LAD is obscured by metal artifact with no definitive occlusion or high-grade stenosis. Left circumflex showing minimal calcified plaque burden with no significant stenosis. Exercise nuclear stress test completed 10/2023. Myocardial perfusion imaging showing no evidence of ischemia or infarction. I have obtained verbal consent from Darinel Boyer prior to the recording. I have advised Darinel Boyer that he may refuse the recording and require the recording to be turned off at any time during this encounter. History of Present Illness The patient is a 74-year-old male who presents today for a triage visit. He reports experiencing chest pain, initially suspected to be a torn muscle due to persistent coughing. The pain has since subsided, but he continues to experience mild chest tightness and shoulder discomfort, which he does not find alarming. He has been unable to engage in physical exercise due tohis illness. He has been grappling with bronchitis, which he attributes to a recent influenza infection that took approximately 10 days to resolve. He is currently on the third day of a 14-day antibiotic course. He has a scheduled appointment with his primary care physician in the coming days. He also reports morning and nighttime coughing episodes, for which he uses a humidifier and occasionally applies Vicks for relief. He is currently on the third day of a 14-day antibiotic course. He is also on prednisone, prescribed by his corporate banking officer, Dr. Campbell. He experiences random palpitations, including an episode this morning, but does not express concernover these incidents. He is taking Xarelto. He consistently uses a CPAP machine for sleep apnea but does not utilize the moisture feature as itcauses him to wake up with a dry throat, necessitating water intake. ACTIVE MEDICATIONS: Current Outpatient Medications Medication Instructions amLODIPine (NORVASC) 5 mg tablet TAKE 1 TABLET BY MOUTH EVERY DAY atorvastatin (LIPITOR) 80 mg tablet TAKE 1 TABLET BY MOUTH EVERY DAY azelastine (ASTELIN) 137 mcg (0.1 %) nasal spray 1 spray, 2 times daily azithromycin (ZITHROMAX) 500 mg, Daily budesonide (RHINOCORT AQ) 32 mcg/actuation nasal spray by Nasal route as needed. clopidogreL (PLAVIX) 75 mg tablet TAKE 1 TABLET BY MOUTH EVERY DAY dexlansoprazole (DEXILANT) [address] capsule Take by mouth daily as needed. loratadine/pseudoephedrine (CLARITIN-D 24 HOUR ORAL) Take by mouth as needed. methylPREDNISolone (MEDROL) 4 mg, Daily rivaroxaban (Xarelto) 20 mg tablet Take 1 Tablet by mouth daily. PAST MEDICAL HISTORY: Patient Active Problem List Diagnosis Allergic rhinitis Atrial fibrillation (CMS/HCC) Coronary artery disease Hyperlipidemia Hypertension Obstructive sleep apnea Pneumonia Pulmonary nodule ALLERGIES: Allergies Allergen Reactions Latex SOCIAL HISTORY: Social History Tobacco Use Smoking status: Former Current packs/day: 0.00 Types: Cigarettes Quit date: 03/11/1984 Years since quittin.1 Smokeless tobacco: Never Substance Use Topics Alcohol use: Yes Comment: [facility] PHYSICAL EXAM: Vitals: 04/28/24 1042 BP: (!) 142/82 BP Location: Left arm Patient Position: Sitting BP Cuff Size: Adult Pulse: 66 SpO2: 94% Weight: 103 kg (228 lb 1.6 oz) Physical Exam Constitutional: General: He is not in acute distress. Appearance: He is not diaphoretic. HENT: Head: Normocephalic. Eyes: Pupils: Pupils are equal, round, and reactive to light. Neck: Vascular: No carotid bruit. Cardiovascular: Rate and Rhythm: Normal rate and regular rhythm. Pulses: Normal pulses. Heart sounds: Normal heart sounds. No murmur heard. No friction rub. Pulmonary: Effort: Pulmonary effort is normal. No respiratory distress. Breath sounds: Normal breath sounds. No stridor. No wheezing, rhonchi or rales. Chest: Chest wall: No tenderness. Abdominal: General: Bowel sounds are normal. There is no distension. Palpations: Abdomen is soft. Tenderness: There is no abdominal tenderness. Musculoskeletal: General: No deformity. Cervical back: Normal range of motion. Right lower leg: No edema. Left lower leg: No edema. Skin: General: Skin is warm and dry. Neurological: Mental Status: He is alert and oriented to person, place, and time. Psychiatric: Mood and Affect: Mood normal. EKG: Encounter Date: 04/28/24 ECG 12 lead Result Value Ventricular Rate ECG 61 Atrial Rate 61 P-R Interval 134 QRS Duration 92 Q-T Interval 412 QTc 414 R Woodstock 52 T Woodstock 3 ECG Interpretation Normal sinus rhythm Normal ECG When compared with ECG of 05-FEB-2024 09:29, No significant change was found *Note: Due to a large number of results and/or encounters for the requested time period, some results have not been displayed. A complete set of results can be found in Results Review. TESTING: ASSESSMENT/PLAN: As per AHA guidelines and previously established plan of care by Dr. Warren Reyes MD, we discussed the following today: Assessment & Plan 1. Coronary Artery Disease. Patient has history of coronary artery disease status post angioplasty and stenting of the LAD in 2019. His last stress test conducted in October 2023 yielded normal results. The coronary CTA did not reveal any significant lesions of concern. The current discomfort he is experiencing is likely attributable to his persistent cough and overall health condition. He is advised to focus on recovering from his bronchitis before resuming any physical activities. He continues on cardioprotective medicaltherapy with Plavix and atorvastatin. I have reviewed with the patient the importance of a heart healthy lifestyle which includes eating a low-fat low-salt diet, getting regular exercise, maintaininga healthy weight, not smoking, and following up with routine medical care. 2. Hypertension. BP borderline today with reading of 142/82. Will continue to monitor as this is normally well controlled on present medical therapies. 3. Hyperlipidemia. Last LDL cholesterol was 43. This is at goal. Continue with statin as prescribed. 4. Atrial Fibrillation. He is currently on Xarelto for anticoagulation. It is common for individuals with atrial fibrillation or atrial flutter to experience increased symptoms when their body is under stress. His palpitations are not unexpected given his acute illness. He is advised to maintain adequate hydration and continue his current treatment regimen. If his heart rate becomes very fast or he feels unwell, he should seek immediate medical attention. 5. Bronchitis. He is currently on antibiotics and prednisone as prescribed by his respiratory doctor, Dr. Campbell. His lungs sound clear today with no wheezing or fluid detected. He is advised to continue using supportive measures such as a humidifier and vapor rub as needed. If his cough persists, he may need to follow up with his primary care physician. 6. Sleep Apnea. He is using his sleep apnea machine consistently. He is advised to consult with his sleep medicine specialist for any additional recommendations, particularly regarding the use of a CPAP mask with moisture. Follow-up The patient will follow up in 6 months. [facility] Cosigned by Warren Reyes MD at 04/30/2024 2:43 PM EST documented in this encounter Plan of Treatment Upcoming Encounters Date Type Department Care Team (Late st Contact Info) Description 11/10/2024 10:50 AM EDT Office Visit [facility] [address] [place] [phone] Warren Reyes MD [address] [place] [address] [address] [place] [address] documented as of this encounter Procedures Procedure Name Priority Date/Time Associated Diagnosis Comments ECG 12-LEAD Routine 04/28/2024 11:36 AM EST Atrial fibrillation, unspecified type (CMS/HCC) documented in this encounter Results * ECG 12 lead (04/28/2024 11:36 AM EST) Ventricular Rate ECG 61 BPM GEMUSE Atrial Rate 61 BPM GEMUSE P-R Interval 134 ms GEMUSE QRS Duration 92 ms GEMUSE Q-T Interval 412 ms GEMUSE QTc 414 ms GEMUSE R Woodstock 52 degrees GEMUSE T Woodstock 3 degrees GEMUSE ECG Interpretation Normal sinus rhythm Normal ECG When compared with ECG of 05-FEB-2024 09:29, No significant change was found Confirmed by Angeli REYES JAMES ([id number]) on 04/28/2024 1:42:23 PM GEMUSE 04/28/2024 10:5 3 AM EST 04/28/2024 1:42 PM EST us Ashley Yañez SEED SPECIALIST ECG ORDERABLES Edited Resul t - Final GEMUSE documented in this encounter Visit Diagnoses Diagnosis Atrial fibrillation, unspecified type (CMS/HCC)- Primary documented in this encounter Historical Medications * This list may reflect changes made after this encounter. azithromycin (ZITHROMAX) 500 mg tablet Take 1 tablet (500 mg total) by mouth 1 (one) time each day. methylPREDNISolon e (MEDROL) 4 mg tablet Take 1 tablet (4 mg total) by mouth 1 (one) time each day. added in this encounter Care Teams Optical Coating Technician Relationship Specialty Start Date End Date Wally Carter MD [address] [facility] [address] [place] [address] PCP - General 07/27/16 documented as of this encounter
--- OUTSIDE RECORDS SUMMARY | 2024-05-04 14:57 | XMS_ITS | Clinical Summary ---
Author Organization [facility] [employer] [facility] Address [address] [place] [address] Phone Care Team Providers Care Teacher Hearing Impaired Name Role Phone Wally Carter MD Primary Care Provider [phone] Allergies Active Allergy Reactions Criticality Noted Date Comments Latex 05/20/2017 Medications rivaroxaban (Xarelto) 20 mg tablet Take 1 Tablet by mouth daily. 4 Active loratadine/pseu doephedrine (CLARITIN-D 24 HOUR ORAL) Take by mouth as needed. Active dexlansoprazole (DEXILANT) [address] capsule Take by mouth daily as needed. Active budesonide (RHINOCORT AQ) 32 mcg/actuation nasal spray by Nasal route as needed. Active atorvastatin (LIPITOR) 80 mg tablet TAKE 1 TABLET BY MOUTH EVERY DAY 90 tablet 2 4 Active amLODIPine (NORVASC) 5 mg tablet TAKE 1 TABLET BY MOUTH EVERY DAY 90 tablet 1 4 Active azelastine (ASTELIN) 137 mcg (0.1 %) nasal spray Administer 1 spray into each nostril 2 (two) times a day. Use in each nostril as directed Active clopidogreL (PLAVIX) 75 mg tablet TAKE 1 TABLET BY MOUTH EVERY DAY 90 tablet 3 4 Active methylPREDNISol one (MEDROL) 4 mg tablet Take 1 tablet (4 mg total) by mouth 1 (one) time each day. Active azithromycin (ZITHROMAX) 500 mg tablet Take 1 tablet (500 mg total) by mouth 1 (one) time each day. Active Active Problems Problem Noted Date Diagnosed Date Atrial fibrillation 12/12/2020 Overview (02/05/2024): Assessment & Plan (02/05/2024 10:34 AM EST): Patient has history of paroxysmal atrial fibrillation and remains on Xarelto for anticoagulation. He is not on beta-julita due to baseline bradycardia. Orders: ECG 12 lead Coronary artery disease 12/12/2020 Overview (02/05/2024): Assessment & Plan (02/05/2024 10:34 AM EST): Patient has history of coronary artery disease status post angioplasty and stenting of the LAD in 2019. Last noninvasive cardiac testing with a nuclear stress test showed no evidence of ischemia or infarction. He feels well and denies any exertional anginal symptoms. He continues on cardioprotective medical therapy with Plavix and atorvastatin. I have reviewed with the patient the importance of a heart healthy lifestyle which includes eating a low-fat low-salt diet, getting regular exercise, maintaining a healthy weight, not smoking, and following up with routine medical care. Hypertension 12/12/2020 Overview (02/05/2024): Assessment & Plan (02/05/2024 10:34 AM EST): Blood pressure today 122/68. Continue with amlodipine as prescribed. Pulmonary nodule 04/01/2018 Pneumonia 01/28/2018 Allergic rhinitis 05/20/2017 Hyperlipidemia 05/20/2017 Assessment & Plan (02/05/2024 2:20 PM EST): Last LDL cholesterol was 43. This is at goal. Continue with statin as prescribed. Obstructive sleep apnea 05/20/2017 Overview (12/24/2023): CPAP Resolved Problems Problem Noted Date Diagnosed Date Resolved Date Chest pain 08/14/2022 02/05/2024 Bradycardia 09/02/2020 02/05/2024 Overview (12/24/2023): Last Assessment & Plan: Patient is concerned about bradycardia with baseline heart rate in the 50s. During hospitalization he reports that his heart rate was as low as 40 and the providers there were concerned. He did have a 48-hour school lunch monitor completed in September which showed no evidence of significant bradycardia or pauses. We will once again repeat a 24-hour school lunch monitor. Encounters Date Type Department Care Team Description 04/28/2024 10:40 AM EST Office Visit [facility] Cardiology [facility] [address] [place] [address] Ashley Yañez NP Atrial fibrillation, unspecified type (CMS/HCC) (Primary Dx) 04/21/2024 Telephone [facility] [address] [place] [phone] Mona Graf RN Atrial Fibrillation 02/05/2024 9:10 AM EST Office Visit [facility] [address] [place] [address] Ashley Yañez, MARY LOU Coronary artery disease involving quileute coronary artery of quileute heart without angina pectoris (Primary Dx); Atrial fibrillation, unspecified type (CMS/HCC); Primary hypertension; Mixed hyperlipidemia from Last 3 Months Surgical History Surgery Date Site/Laterality Comments OTHER SURGICAL HISTORY 05/2017 PROCEDURE: PULMONOLOGY BRONCHOSCOPY ANGIOPLASTY PROCEDURE: HISTORICAL ANGIOPLASTY W/STENT Medical History Medical History Date Comments Obstructive sleep apnea 05/20/2017 DX:Obstr uctive sleep apnea; COMMENT: CPAP Allergic rhinitis 05/20/2017 DX:Allergic rh initis Hyperlipidemia 05/20/2017 DX:Hyperlipidemi a Essential hypertension DX:Essent ial hypertension Chronic ischemic heart disease D X:Chronic ischemic heart disease Family History Medical History Relation Name Comments Coronary artery disease Father Heart attack Father Thyroid disease Mother Relation Name Status Comments Father Mother Social History Tobacco Use Types Packs/Day Years [...] on file Sexual Orientation Not on file Obstetrics History Last Filed Vital Signs Vital Sign Reading Time Taken Comments Blood Pressure 142/82 04/28/2024 10:42 AM EST Pulse 66 04/28/2024 10:42 AM EST Temperature - - Respiratory Rate - - Oxygen Saturation 94% 04/28/2024 10:42 AM EST Inhaled Oxygen Concentration - - Weight 103 kg (228 lb 1.6 oz) 04/28/2024 10:42 A M EST Height 170.2 cm (5' 7 ) 02/05/2024 9:23 AM EST Body Mass Index 35.73 02/05/2024 9:23 AM EST Plan of Treatment Upcoming Encounters Date Type Department Care Team (Late st Contact Info) Description 11/10/2024 10:50 AM EDT Office Visit [facility]iology [facility] [address] [place] [address] [address] [place] [phone] Warren Reyes MD [address] [place] [address] [address] [place] [address] Health Maintenance Due Date Last Done Comments Zoster Vaccines (1 of 2) 2001 RSV Immunization Patients 60+ Years Old (1 - Risk 60-74 years 1-dose series) 2011 Abdominal Aortic Aneurysm (AAA) Screen 02/17/2022 Cholesterol Screening (Lipid Panel) 02/17/2022 Colorectal Cancer Screening: Colonoscopy 02/17/2022 Depression Screening 02/17/2022 Falls Risk Assessment 02/17/2022 Hepatitis C Screening 02/17/2022 Medicare Annual Wellness Visit 02/17/2022 Social Influencers of Health Screening 02/17/2022 Hypertension/CHF/CAD Annual BMP Blood Test 02/18/2022 DTaP,Tdap,and Td Vaccines (2 - Td or Tdap) 10/14/2031 10/13/2021 COVID-19 Vaccine Completed 11/19/2023, , 12/24/2021, Additional history exists Influenza Vaccine Completed 01/03/2024, , 12/22/2021, Additional history exists Pneumococcal Vaccine: 50+ Years Completed 01/15/2024, 10/10/2019 HIB Vaccines Aged Out No longer eligi ble based on patient's age to complete this topic HPV Vaccines Aged Out No longer eligi ble based on patient's age to complete this topic Hepatitis A Vaccines Aged Out No long er eligible based on patient's age to complete this topic Hepatitis B Vaccines Aged Out No long er eligible based on patient's age to complete this topic IPV Vaccines Aged Out No longer eligi ble based on patient's age to complete this topic MMR Vaccines Aged Out No longer eligi ble based on patient's age to complete this topic Meningococcal ACWY Vaccine Aged Out N o longer eligible based on patient's age to complete this topic Meningococcal B Vacine Aged Out No lo nger eligible based on patient's age to complete this topic RSV Immunization Patients Under 20 months Aged Out No longer eligible based on patient's age to complete this topic Varicella Vaccines Aged Out No longer eligible based on patient's age to complete this topic Procedures Procedure Name Priority Date/Time Associated Diagnosis Comments ECG 12-LEAD Routine 04/28/2024 11:36 AM EST Atrial fibrillation, unspecified type (CMS/HCC) ECG 12-LEAD Routine 02/05/2024 10:34 AM EST Atrial fibrillation, unspecified type (CMS/HCC) from Last 3 Months Results * ECG 12 lead (04/28/2024 11:36 AM EST) Only the most recent of2 resultswithin the time period is included. Ventricular Rate ECG 61 BPM GEMUSE Atrial Rate 61 BPM GEMUSE P-R Interval 134 ms GEMUSE QRS Duration 92 ms GEMUSE Q-T Interval 412 ms GEMUSE QTc 414 ms GEMUSE R Independence 52 degrees GEMUSE T Independence 3 degrees GEMUSE ECG Interpretation Normal sinus rhythm Normal ECG When compared with ECG of 05-FEB-2024 09:29, No significant change was found Confirmed by Angeli REYES JAMES ([id number]) on 04/28/2024 1:42:23 PM GEMUSE 04/28/2024 10:5 3 AM EST 04/28/2024 1:42 PM EST us Ashley Yañez NP ECG ORDERABLES Edited Resul t - Final GEMUSE from Last 3 Months Insurance MEDICARE [facility] Care Teams Teacher Hearing Impaired Relationship Specialty Start Date End Date Wally Carter MD [facility] [address] [address] PCP - General 07/27/16
--- OUTSIDE RECORDS SUMMARY | 2024-05-04 14:57 | XMS_ITS ---
Author Organization Wally Carter III, MD Address [address] [place] [address] Care Team Providers Care Cold Rolling Machine Setter Name Role Phone Wally Carter Primary Care Provider REASON FOR VISIT follow up Social History Sex Assigned At : Social History Observation Description Sex Assigned At Male Encounters Encounter Location Date Provider Diagnosis Wally Carter III, MD [address] [place] [address] [place] [address] 02/27/2024 Wally Carter Plan Of Treatment Next Appt Details Provider Name:Wally Carter, 07/27/2024 10:45:00 AM, [address] [place] [address] [place], [address], Provider Name:Wally Carter, 09/25/2024 09:30:00 AM, [address] [place] [address] [address], [place], [address], Progress Notes * Derek HERNADEZOB:1950 (74 yo M)Acc No.[id number]:02/27/2024 Progress Notes Patient:?Darinel HERNADEZ Provider:?Wally Carter MD :1950???Age:73 Y???Sex:Male Robert e:02/27/2024 Address:[address] [place], [place] [id number] Subjective: * Chief Complaints: * ???1. Follow up. * Medical History:? Objective: * Vitals:? Assessment: Plan: * Treatment: * Images: * The named appointment provid er may or may not be the originator of this progress note, and it is not deemed complete until electronically signed by the appointment provider. Sign off status: Pending * Provider:?Wally Carter MD Date:?02/08 Generated for Ravindra petersen/Sonya/Michealsmitting on:?05/04/2024 02:57 PM EST
--- OUTSIDE RECORDS SUMMARY | 2024-05-04 14:57 | XMS_ITS | Encounter Summary ---
Author Organization [facility] Address [address] [place] [address] Care Team Providers Care Education Technician Name Role Phone Wally Carter MD Primary Care Provider [phone] Reason for Visit * Reason Onset Date Comments Atrial Fibrillation 04/21/2024 Encounter Details Date Type Department Care Team (Late st Contact Info) Description 04/21/2024 Telephone [facility] [address] [place] [address] Mona Graf RN Atrial Fibrillation Social History Tobacco Use Types Packs/Day Years [...] on file documented as of this encounter Progress Notes * Mona Graf RN - 04/21/2024 1:04 PM EST I spoke to Darinel, informed him of [facility]'s message, and he voiced understanding. I have scheduled him with a triage visit with Pawel Yañez on 04/28/24 @ 10:40 AM. He has a telehealth apt with his PCP at 2:15 PM today. * Myron John NP - 04/21/2024 12:00 PM EST As long as he is feeling better, I would recommend only supportive measures such as PRNs like he isdoing already. We can set him up for a triage appointment - no sooner then next week given he has Flu A. * Mona Graf RN - 04/21/2024 11:11 AM EST Darinel's call was transferred to me. Around 4-5 AM today, pt has been intermittently in AFIB. Pt reports intermittent fluttering and hasn't been monitoring his HR. His pulse was checked manually whileon the phone, which resulted 75 bpm. Pt reported his rhythm feels regular and he doesn't believe he' s in AFIB currently. He denies shortness of breath and dizziness. Darinel reports lightheadedness with initial position change that resolves once he starts walking. Pt reports generalized chest soreness when coughing in the setting of an acute illness that started Saturday evening. He believes he has the flu and endorsing symptoms of cough with yellow phlegm, congestion, headache, and decreased appetite. He has not tested himself for COVID or contacted PCP. Darinel has been utilizing PRN Guaifenesin w/ codeine 1200 mg. Today, he reported his symptoms are getting better, but still present. I advisedhim to check BP, maintain hydration with water, increase PO intake, and contact PCP regarding flu-like symptoms. Pt denies any recent med changes and compliant with Xarelto 20 mg daily. Darinel has notchecked BP, but agreeable to do so. Do you have additional recommendations at this time? documented in this encounter Plan of Treatment Upcoming Encounters Date Type Department Care Team (Late st Contact Info) Description 11/10/2024 10:50 AM EDT Office Visit [facility] Cardiology [facility] [address] [place] [address] [address] [place] [address] Warren Reyes MD [address] [place] [address] [address] [place] [address] documented as of this encounter Visit Diagnoses Not on filedocumented in this encounter Care Teams Education Technician Relationship Specialty Start Date End Date Wally Carter MD [address] [address] PCP - General 07/27/16 documented as of this encounter
--- OUTSIDE RECORDS SUMMARY | 2024-05-04 14:57 | XMS_ITS ---
Author Organization Wally Carter III, MD Address [address] [place] [address] Care Team Providers Care Double Back Operator Name Role Phone Wally Carter Primary Care Provider Allergies Allergen (clinical drug [...] Date Provider Diagnosis Wally Carter III, MD [address] [place] [address] [place] [address] 04/21/2024 Wally Carter Other and unspecifie d hyperlipidemia E78.5 ; Paroxysmal atrial fibrillation I48.0 ; Sleep apnea G47.30 ; Obesity E66.9 ; Former smoker Z87.891 ; Coronary artery disease of eyak artery of eyak heart with stable angina pectoris I25.118 and [...] atrial fibrillation recently. He spoke to the commission specialist who ordered a Holter monitor and gave [...] of stress. 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 [...] Feb, Reason: OV, Regular check-up Provider Name:Wally Carter, 07/27/2024 10:45:00 AM, [address] [place] [address] [address], [place], [address], Provider Name:Wally Caretr, 09/25/2024 09:30:00 AM, [address] [place] [address] [address], [place], [address], Progress Notes * Derek HERNADEZOB:1950 (74 yo M)Acc No.[id number]:04/21/2024 Patient:?Darinel HERNADEZ Provider:?Wally Carter MD :1950???Age:74 Y???Sex:Male Robert e:04/21/2024 [id number] Subjective: * Chief Complaints: * ???Telehealth * HPI: ???:?Telehealth?Location of provider rendering services:?{...} [address] [facility] [address] ?Location of patient:?address listed in demographics for today's visit ?Patient identification confirmed using:?Name, ?Telehealth method:?Telephone only. Patient not visible to care provider. ?Consent:?Patient verbally consented to treatment, Patient verbally consented to billing insurance company, Patient informed of any privacy concerns related to method of visit ?Total time spent with patient (mins)?15 ?The patient, a 74-year-old male, reported experiencing a lot of congestion in his head and a headache upon waking up around 4:00 AM. He also had bouts of atrial fibrillation (Afib) on and off for most of the morning, which prompted him to contact his commission specialist. The patient's heart rate was around 77 [...] been experiencing random, short-lived episodes of Afib.The commission specialist did not make any change in his medication but did give him a follow-up appointment.? The heart rate has not been excessive.? A Holter monitor has been ordered. * ROS:?General/Constitutional:?pain?only normal aches and pains.?Chills?denies.?Fatigue?admits.?Fever?denies.?Allergy/Immunology:?Admits?Congestion.?ENT:?Decreased hearing?denies.?Respiratory:?Cough?denies.?Cardiovascular:?Chest pain with exertion?denies.?Dyspnea on exertion?denies.?Shortness of breath?denies.?Gastrointestinal:?Constipation?occasional.?Decreased appetite?denies.?Diarrhea?that is infrequent.?Heartburn?denies.?Nausea?denies.?Rectal bleeding?denies.?Vomiting?denies.?Hematology:?bruising?denies.?petechiae?denies.?Swollen glands?none have been noted.?Genitourinary:?Frequent urination?once a night.?Musculoskeletal:?Muscle aches?denies.?Painful joints?denies.?Sciatica?denies.?Weakness?denies.?Skin:?Itching?denies.?Rash?denies.?Skin lesion(s)?denies.?Neurologic:?Difficulty speaking?denies.?Dizziness?denies.?Headache?denies.?Low back pain?denies.?Psychiatric:?Depressed mood?denies.? * Medical History:? * Surgical History:?resection of lipoma renal biopsy fracture right thumb colonoscopy, Dr. Bacon, adenomatous polyp transverse colon 2002crush injury right third finger at work 2012COLONOSCOPY 2013 OCTRight knee miniscus surgery 02/2015[place], L45 disc decomression 06/2016Cardiac catheterization and angioplasty with a stent LAD, [facility] 09/2019endoscopy and colonoscopy at [facility] 01/2024No history * Hospitalization/Major Diagno stic Procedure:?Atrial fibrillation 02/2018No history * Family History:?Father: dece ased 73 yrs, cardiac disease, allergies,overweight, adult onset diabetes mellitus, diagnosed with DM.?Mother: alive 87 yrs, thyroid problems, migraines.?Siblings: alive, prostate cancer.?Spouse: alive.?3 brother(s) - healthy. 3 daughter(s) - healthy. .? His father and 3 brothers all have allergies. He is not aware of any family inherited cancer syndromes. He is not aware of any family history of mental illness, substance use disorders or addictions. * Social History:?Tobacco Use:?Tobacco Use/Smoking?Patient is a?former smoker ?How long has it been since you last smoked??> 10 years ?Additional Findings: Tobacco Non-User?Ex-cigarette smoker ???He has been to [place] 14 years. He was born in [place]. They have 3 children. 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 He stopped smoking over 20 years ago. * Medications:?TakingAzelastin e HCl 0.1 % Solution 1 puff in [...] reviewed and reconciled with the patient * Allergies:?Latexno[Allergies Verified] Objective: * Vitals:?Ht: 68, Wt:229, BMI: 34.82, BP:112/63, HR:77.0, Wt-k.87. Assessment: * Assessment: 1.?Paroxysmal atrial fibrill ation - I48.0 (Primary)???Notes :He remaiins anticoagulated.? He is compliant with his medications.? He has had paroxysms of atrial fibrillation recently.? He spoke to the commission specialist who ordered a Holter monitor and gave him a follow-up appointment.???2.?Other and unspecified hyperlipidemia - E78.5???Notes :His lipids are currently stable aand no change in his therapy was needed today.???3.?Sleep apnea - G47.30???Notes :He has been compliant with his CPAP machine. He denies any recent daytime somnolence. Surveillance and sleep medicine. Will continue.???4.?Obesity - E66.9???Notes :His body mass index is 34. He has gained 5 pounds. We have discussed his weight loss strategy and his diet and his nutrition. Continue to try lose weight at a rate of one half of a pound per week.???5.?Former smoker - Z87.891???Notes :He is highly motivated not to smoke. 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 A stress test was unremarkable. He is now home. He'll be seen in the office in the near future after blood work.???7.?BPH (benign prostatic hyperplasia) - N40.0???Notes :He arises from sleep once or twice a night to urinate. We reviewed lifestyle modification as a could reduce nocturia.??? Plan: * Treatment: * Procedure Codes:? * Preventive Medicine:? ??Counseling:?Care goal follow-up plan:?Counseling for abnormal BMI given?Yes ?Above Normal BMI Follow-up?Dietary management education, guidance, and counseling, Dietary needs education, Exercise promotion: strength training ?Smoking/Tobacco Use?Patient counseled on the dangers of tobacco use and urged to quit.?04/21/2024 * Follow Up:?as scheduled, Feb (Reason: OV, Regular check-up) * Images: * Sign off status: Completed true * Provider:?Wally Carter MD Date:?04/11 Generated for Ravindra petersen/Sonya/James on:?05/04/2024 02:57 PM EST History and Physical Notes * HPI (History of Present Illness) Category Sub-Category Detail Notes Telehealth Location of located [facility] rendering services:: {...} [address] [place] [address] Location of patient:: address listed in demographics [...]
--- OUTSIDE RECORDS SUMMARY | 2024-05-04 14:58 | XMS_ITS ---
Author Organization Wally Carter III, MD Address [address] [place] [address] Care Team Providers Care Rougher Helper Name Role Phone Wally Carter Primary Care Provider [phone] Allergies Allergen (clinical drug ingredient) Drug/Non Drug [...] Date Provider Diagnosis Wally Carter III, MD [address] [place] [address] [place] [address] 04/29/2024 Wally Carter Other and unspecifie d hyperlipidemia E78.5 ; Coronary artery disease of [place] artery of [place] heart with stable angina pectoris I25.118 ; [...] needed today. 04/29/2024 Coronary artery disease of [place] artery of [place] heart with stable angina pectoris (ICD-10 - I25.118) He was admitted to [facility] last weekend for anginal chest pain. [...] atrial fibrillation recently. He spoke to the insurance claims adjuster who ordered a Holter monitor and gave [...] Up: 3 Months, Reason: OV Provider Name:Wally Carter, 07/27/2024 10:45:00 AM, [address] [place] [address] [address], [place], [address], Provider Name:Wally Carter, 09/25/2024 09:30:00 AM, [address] [place] [address] [address], [place], [address], Progress Notes * Derek HERNADEZOB:1950 (74 yo M)Acc No.[id number]:04/29/2024 Progress Notes Patient:?Darinel HERNADEZ Provider:?Wally Carter MD :1950???Age:74 Y???Sex:Male Robert e:04/29/2024 Address:[address] [place] [address] [facility] Subjective: * Chief Complaints: * ???Recent colonoscopyRecent episode of iinfluenzaSleep apneaObesityParoxysmal atrial fibrillationCoronary artery diseaseHearing lossLumbar radiculopathy * HPI: ???COVID-19 Screening:?Questions?Have you had any new onset fever, chills, cough, congestion, sore throat, shortness of breath, muscle aches??Yes Congestion, Cough stated longer than 48 hours ???:?The patient, a 74-year-old male, presented with symptoms [...] the lower area.He had a colonoscopy at [facility] January 14, 2024 that showed a tubular adenoma in the hepatic flexure.? He has had no chest pain recently.? He has had no episodes of rapid heart rate.? He is feeling healthy and well. * ROS:?General/Constitutional:?pain?only normal aches and pains.?Chills?denies.?Fatigue?admits.?Fever?denies.?ENT:?Decreased hearing?in both ears.?Respiratory:?Cough?non-productive.?Cardiovascular:?Chest pain with exertion?denies.?Dyspnea on exertion?denies.?Shortness of breath?denies.?Gastrointestinal:?Constipation?occasional.?Decreased appetite?denies.?Diarrhea?denies.?Heartburn?denies.?Nausea?denies.?Rectal bleeding?denies.?Vomiting?denies.?Hematology:?bruising?denies.?petechiae?denies.?Swollen glands?none have been noted.?Genitourinary:?Frequent urination?once a night.?Musculoskeletal:?Muscle aches?denies.?Painful joints?denies.?Sciatica?denies.?Weakness?denies.?Skin:?Itching?denies.?Rash?denies.?Skin lesion(s)?denies.?Neurologic:?Difficulty speaking?denies.?Dizziness?denies.?Headache?denies.?Low back pain?denies.?Psychiatric:?Depressed mood?which is mild.? * Medical History:? * Surgical History:?resection of lipoma renal biopsy fracture right thumb colonoscopy, Dr. Bacon, adenomatous polyp transverse colon, Gastritis and adenomatous polyp hepatic flexure 2002crush injury right third finger at work 2012COLONOSCOPY 2013 OCTRight knee miniscus surgery 02/2015[place], L45 disc decomression 06/2016Cardiac catheterization and angioplasty with a stent LAD, [facility] 09/2019endoscopy and colonoscopy at [facility] 01/2024No history * Hospitalization/Major Diagno stic Procedure:?Atrial [...] Payal 14 years. He was born in [place]. They have 3 children. 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 He stopped smoking over 20 years ago. * Medications:?TakingamLODIPin e Besylate 5 MG Tablet 1 tablet Orally [...] * Allergies:?Latexno[Allergies Verified] Objective: * Vitals:?Ht: 68, Wt:226, BMI: 34.36, BP:142/90, HR:58, Temp:98.8, Wt-k.51. * Examination: ???General Examination: ?GENERAL APPEARANCE:?pleasant, well nourished, well developed, in no acute distress, calm and relaxed, obese, man.?HEAD:?atraumatic, normocephalic.?EYES:?eomi, perrla, anicteric, conjugate.?EARS:?Normal anatomy with hearing loss.?NOSE:?septum intact.?ORAL CAVITY:?normal, unremarkable.?NECK/THYROID:?no jugular venous distention, no carotid bruit, thyroid normal.?LYMPH NODES:?no enlarged lymph nodes,spleen normal.?SKIN:?no suspicious lesions, anicteric.?HEART:?no clicks, gallops, murmurs, or rubs, regular rhythm, S1, S2 normal, no s3, or vascular bruits.?LUNGS:?clear to auscultation .?BREASTS:??no masses palpable bilaterally.?ABDOMEN:?bowel sounds normal, no ascites, no organomegaly, no mass, centripital obesity.?RECTAL EXAM:?not examined.?MUSCULOSKELETAL:?extremities unremarkable, no clubbing, cyanosis or edema.?PERIPHERAL PULSES:?normal.?NEUROLOGIC:?alert and oriented, cranial nerves 2-12 grossly intact, deep tendon reflexes 2+ symmetrical, motor strength normal upper and lower extremities, sensory exam intact.?PSYCH:?alert, oriented.? Assessment: * Assessment: 1.?Coronary artery disease o f [place] artery of [place] heart with stable angina pectoris - I25.118 (Primary)???Notes :He was admitted to [facility] last weekend for anginal chest pain. A stress test was unremarkable. He is now home. He'll be seen in the office in the near future after blood work.???2.?Other and unspecified hyperlipidemia - E78.5???Notes :His lipids [...] for prevention of relapse in times of stress.???6.?Restless leg syndrome - G25.81???Notes :He will continue on his current therapy. He finds it quite beneficial.???7.?Paroxysmal atrial fibrillation - I48.0???Notes :He remaiins anticoagulated. He is compliant with his medications. He has had paroxysms of atrial fibrillation recently. He spoke to the insurance claims adjuster who ordered a Holter monitor and gave him a follow-up appointment.???8.?Hearing loss - H91.90???Notes :He has not noticed any change in his hearing. This problem will be followed carefully and if he experiences a loss and acuity he will be referred for amplification evaluation.???9.?Anticoagulation adequate - Z79.01???Notes :He has had no bleeding. Clopidogrel has been added to his regimen.???10.?Environmental allergies - Z91.09???Notes :He continues to take his allergy medication. The pollen season has resolved and he is improved but he is chronically allergic with rhinitis.???11.?BPH (benign prostatic hyperplasia) - N40.0???Notes :He arises from sleep once or twice a night to urinate. We reviewed lifestyle modification as a could reduce nocturia.???12.?Low testosterone - E29.1???Notes :He is not currently taking replacement. The value is being repeated. It is likely related to his obesity.??? Plan: * Treatment: 2.?Obesity?LAB: PROFILE, FASTING (COMPREHENSIVE METABOLIC) ?LAB: PSA, TOTAL ?LAB: CBC WITH AUTO DIFF ?LAB: Lipid Panel * Procedure Codes:? * Preventive Medicine:? ??Counseling:?Care [...] done: Medical or Other reason not done ?Smoking/Tobacco Use?Patient counseled on the dangers of tobacco use and urged to quit.?04/29/2024 * Follow Up:?3 Months (Reason: OV) * Images: * Sign off status: Completed true * Provider:?Wally Carter MD Date:?04/11 Generated for Ravindra petersen/Sonya/eTransmitting on:?05/04/2024 02:57 PM EST History and Physical [...]
== END 2024-05-04 13:43 | disposition home or self-care (01) ==
PROVIDERS: PCP Internal Medicine Medical Oncology; Visit Provider Hospitalist
DX: G47.33 Obstructive sleep apnea (adult) (pediatric) (principal); R05.3 Chronic cough; J98.6 Disorders of diaphragm; R91.8 Other nonspecific abnormal finding of lung field; J30.9 Allergic rhinitis, unspecified; R06.09 Other forms of dyspnea; J40 Bronchitis, not specified as acute or chronic
CPT/HCPCS: 99214

== ENCOUNTER → 2024-05-04 13:07 | Outpatient (BNVA) | payer MEDICARE, SELFPAY | PROVIDERS: PCP Internal Medicine Medical Oncology; Visit Provider Hospitalist | DX: G47.33 Obstructive sleep apnea (adult) (pediatric) (principal); R05.3 Chronic cough; J98.6 Disorders of diaphragm; R06.09 Other forms of dyspnea; J40 Bronchitis, not specified as acute or chronic; J30.9 Allergic rhinitis, unspecified; R91.8 Other nonspecific abnormal finding of lung field; Z99.89 Dependence on other enabling machines and devices | CPT/HCPCS: 99212 ==

== ENCOUNTER 2024-07-10 08:31 | Emergency (ER) | payer MEDICARE, SELFPAY ==
--- NOTE | ~2024-07-10 | XR_ITS ---
EXAMINATION: XR TIBIA FIBULA 2 VIEWS RIGHT HISTORY: pain, injury COMPARISON: There are no prior studies available for comparison. FINDINGS: AP and lateral views of the right tibia and fibula are submitted. Osseous mineralization is normal. There is no fracture or dislocation. The visualized knee and ankle joint spaces are preserved. The soft tissues are unremarkable. XR/XR tibia fibula RT 2V IMPRESSION: Unremarkable examination of the right tibia and fibula. Electronically signed by: Wally Garcia MD 07/10/2024 09:17 AM EDT
[2024-07-10 08:57] VITALS: BP 133/67; PULSE 55; RESP 16; TEMP 36.6; O2SAT 96; BMI 35.6
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
[2024-07-10 09:36] VITALS: BP 133/67; PULSE 55; RESP 16; TEMP 36.6; O2SAT 96
--- OUTSIDE RECORDS SUMMARY | 2024-07-10 10:15 | XMS_ITS | Encounter Summary ---
Author Organization [facility] Address [address] [place] [address] Care Team Providers Care Shift Production Associate Name Role Phone Wally Carter MD Primary Care Provider Warren Plummer MD Unavailable [phone] Ashley Yañez NP Unavailable [phone] Encounter Details Date Type Department Care Team Description 11/30/2020 Card Lacer [facility] Report Medical Records [address] [place] [id number] Wally Carter MD Social History Tobacco Use Types Packs/Day Years Used Date Smoking Tobacco: Former Cigarettes 2.5 Q uit: 1985 Smokeless Tobacco: Former Alcohol Use Standard Drinks/Week Comments Yes 0 (1 standard drink = 0.6 oz pur e alcohol) Sex Assigned at Date Recorded Not on file Job Start Date Occupation Industry Not on file Not on file Not on file documented as of this encounter Plan of Treatment Not on file documented as of this encounter Visit Diagnoses Not on filedocumented in this encounter Care Teams Shift Production Associate Relationship Specialty Start Date End Date Wally Carter MD PCP - General Oncology/Hematology 05/16/17 Warren Reyes MD [address] [place] [address] [place] [address] Extractor Operator Solvent Process Cardiovascular Disease 11/07/17 Ashley Yañez NP [address] [place] [address] [address] [place], [place] [id number] Specialist Cardiology 12/12/20 documented as of this encounter
--- OUTSIDE RECORDS SUMMARY | 2024-07-10 10:15 | XMS_ITS | Encounter Summary ---
Author Organization [facility] Address [address] [place] [address] Care Team Providers Care Culinary Chef Name Role Phone Wally Carter MD Primary Care Provider Warren Plummer MD Unavailable [phone] Ashley Yañez NP Unavailable [phone] Encounter Details Date Type Department Care Team Description 06/21/2017 SCAN Medical Records [address] [place] [address] Ron Castro MD Social History Tobacco Use Types Packs/Day Years Used Date Smoking Tobacco: Former Cigarettes 2.5 Q uit: 1985 Alcohol Use Standard Drinks/Week Comments Yes 0 (1 standard drink = 0.6 oz pur e alcohol) Sex Assigned at Date Recorded Not on file Job Start Date Occupation Industry Not on file Not on file Not on file documented as of this encounter Plan of Treatment Not on file documented as of this encounter Procedures Procedure Name Priority Date/Time Associated Diagnosis Comments OUTSIDE NUCLEAR STRESS TEST Routine 06/21/2017 documented in this encounter Results * OUTSIDE NUCLEAR STRESS TEST (06/21/2017) Provider Default CARDIOLOGY documented in this encounter Visit Diagnoses Not on filedocumented in this encounter Care Teams Culinary Chef Relationship Specialty Start Date End Date Wally Carter MD PCP - General Oncology/Hematology 05/16/17 Warren Reyes MD [address] [place] [address] [address] [place] [address] Supervisor Slashing Department Cardiovascular Disease 11/07/17 Ashley Yañez, MARY LOU [address] [place] [address] [address] [place] [address] Specialist Cardiology 12/12/20 documented as of this encounter
--- OUTSIDE RECORDS SUMMARY | 2024-07-10 10:15 | XMS_ITS | Encounter Summary ---
Author Organization [facility] Address [address] [place] [address] Care Team Providers Care Foreign Banknote Teller Trader Name Role Phone Wally Carter MD Primary Care Provider Warren Plummer MD Unavailable [phone] Ashley Yañez NP Unavailable [phone] Encounter Details Date Type Department Care Team Description 10/30/2017 SCAN Medical Records [address] [place] [id number] Warren Reyes MD [address] [place] [address] [address] [place] [address] Social History Tobacco Use Types Packs/Day Years [...] Name Priority Date/Time Associated Diagnosis Comments OUTSIDE STRESS ECHO Routine 10/30/2017 documented in this encounter Results * OUTSIDE STRESS ECHO (10/30/2017) Provider Default CARDIOLOGY documented in this encounter Visit Diagnoses Not on filedocumented in this encounter Care Teams Foreign Banknote Teller Trader Relationship Specialty Start Date End Date Wally Carter MD PCP - General Oncology/Hematology 05/16/17 Warren Reyes MD [address] [place] [address] [address] [place] [address] Hematology Specialist Cardiovascular Disease 11/07/17 Ashley Yañez NP [address] [place] [address] [address] [place] [address] Specialist Cardiology 12/12/20 documented as of this encounter
--- OUTSIDE RECORDS SUMMARY | 2024-07-10 10:15 | XMS_ITS | Clinical Summary ---
Author Organization [facility] [employer] [facility] Address [address] [place] [address] Phone Care Team Providers Care Sole Inker Name Role Phone Wally Carter MD Primary Care Provider [phone] Allergies Active Allergy Reactions Criticality Noted Date [...] Problem Noted Date Diagnosed Date Atrial fibrillation (CMS/[facility] V24, [facility] V28) 1 Overview (02/05/2024): Assessment & Plan (02/05/2024 10:34 [...] were concerned. He did have a 48-hour manager cardiac cath completed in September which showed no evidence of significant bradycardia or pauses. We will once again repeat a 24-hour manager cardiac cath. Encounters Date Type Department Care Team Description 05/19/[address] [facility] Cardiology [facility] [address] [place] [address] Warren Reyes MD Medication 04/28/2024 10:40 AM EST Office Visit [facility] Cardiology [facility] [address] [place] [address] Ashley Yañez NP Atrial fibrillation, unspecified type (CMS/HCC V24, CMS/HCC V28) (Primary Dx) 04/21/[address] [facility] Cardiology [facility] [address] [place] [address] Mona Graf RN Atrial Fibrillation from Last 3 Months Surgical History Surgery [...] Description 11/10/2024 10:50 AM EDT Office Visit [facility] Cardiology [address] [place] [phone] Warren Reyes MD [address] [place] [address] [address] [place] [address] Health Maintenance Due Date Last Done Comments Zoster Vaccines (1 of 2) 2001 RSV Immunization Adult Patients (1 - Risk 60-74 years 1-dose series) 2011 Abdominal Aortic Aneurysm (AAA) Screen 02/17/2022 Cholesterol Screening (Lipid Panel) 02/17/2022 Colorectal Cancer Screening: Colonoscopy 02/17/2022 Depression Screening 02/17/2022 Falls Risk Assessment 02/17/2022 Hepatitis C Screening 02/17/2022 Medicare Annual Wellness Visit 02/17/2022 Social Influencers of Health Screening 02/17/2022 Hypertension/CHF/CAD Annual BMP Blood Test 02/18/2022 COVID-19 Vaccine ( season) 2024 11/19/2023, 12/22/2022, 12/24/2021, Additional history exists DTaP,Tdap,and Td Vaccines (2 - Td or Tdap) 10/14/2031 10/13/2021 Influenza Vaccine Completed 01/03/2024, , 12/22/2021, Additional [...] age to complete this topic Meningococcal B Vaccine Aged Out No l onger eligible based on patient's age to complete this topic RSV Immunization Patients Under 20 months Aged Out No longer eligible based on patient's age to complete this topic Varicella Vaccines Aged Out No longer eligible based on patient's age to complete this topic Procedures Procedure Name Priority Date/Time Associated Diagnosis Comments ECG 12-LEAD Routine 04/28/2024 11:36 AM EST Atrial fibrillation, unspecified type (CMS/HCC V24, CMS/HCC V28) from Last 3 Months Results * ECG 12 lead (04/28/2024 11:36 AM EST) Ventricular Rate ECG 61 BPM GEMUSE Atrial Rate 61 BPM GEMUSE P-R Interval 134 ms GEMUSE QRS Duration 92 ms GEMUSE Q-T Interval 412 ms GEMUSE QTc 414 ms GEMUSE R [place] 52 degrees GEMUSE T [place] 3 degrees GEMUSE ECG Interpretation Normal sinus rhythm Normal ECG When compared with ECG of 05-FEB-2024 09:29, No significant change was found Confirmed by Angeli REYES JAMES ([id number]) on 04/28/2024 1:42:23 PM GEMUSE 04/28/2024 10:5 3 AM EST 04/28/2024 1:42 PM EST Ashley Yañez NP ECG ORDERABLES Edited Resul t - Final GEMUSE from Last 3 Months Insurance MEDICARE [facility] Care Teams Sole Inker Relationship Specialty Start Date End Date Wally Carter MD [address] [address] PCP - General 07/27/16
--- OUTSIDE RECORDS SUMMARY | 2024-07-10 10:15 | XMS_ITS | Encounter Summary ---
Author Organization [facility] Address [address] [place] [address] Care Team Providers Care Vortex Operator Name Role Phone Wally Carter MD Primary Care Provider Warren Plummer MD Unavailable [phone] Ashley Yañez NP Unavailable [phone] Encounter Details Date Type Department Care Team Description 11/28/2020 SCAN Medical Records [address] [place] [address] Abstract, Provider Social History Tobacco Use Types Packs/Day Years [...] Name Priority Date/Time Associated Diagnosis Comments OUTSIDE LAB Routine 11/28/2020 documented in this encounter Results * OUTSIDE LAB (11/28/2020) Provider Default LAB documented in this encounter Visit Diagnoses Not on filedocumented in this encounter Care Teams Vortex Operator Relationship Specialty Start Date End Date Wally Carter MD PCP - General Oncology/Hematology 05/16/17 Warren Reyes MD [address] [place] [address] [address] [place] [address] Selling Underwriter Cardiovascular Disease 11/07/17 Ashley Yañez, MARY LOU [address] [place] [address] DRIVE [address] [place] [address] Specialist Cardiology 12/12/20 documented as of this encounter
--- OUTSIDE RECORDS SUMMARY | 2024-07-10 10:15 | XMS_ITS | Encounter Summary ---
Author Organization [facility] Address [address] [place] [address] Care Team Providers Care Risk Control Analyst Name Role Phone Wally Carter MD Primary Care Provider Warren Plummer MD Unavailable [phone] Ashley Yañez NP Unavailable [phone] Encounter Details Date Type Department Care Team Description 01/05/2023 Hospital Medical Records [address] [place] [address] Social History Tobacco Use Types Packs/Day Years Used Date Smoking Tobacco: Former Cigarettes 2.5 Q uit: 1985 Smokeless Tobacco: Never Alcohol Use Standard Drinks/Week Comments Yes 0 (1 standard drink = 0.6 oz pur e alcohol) 2-4 beers per wk Sex Assigned at Date Recorded Not on file Job Start Date Occupation Industry Not on file Not on file Not on file documented as of this encounter Plan of Treatment Not on file documented as of this encounter Procedures Procedure Name Priority Date/Time Associated Diagnosis Comments OUTSIDE LAB Routine 01/06/2023 OUTSIDE EKG Routine 01/05/2023 OUTSIDE EKG Routine 01/05/2023 OUTSIDE PLAIN FILM Routine 01/05/2023 documented in this encounter Results * OUTSIDE LAB (01/06/2023) Provider Default LAB * OUTSIDE PLAIN FILM (01/05/2023) Provider Default RADIOLOGY * OUTSIDE EKG (01/05/2023) Provider Default CARDIOLOGY * OUTSIDE EKG (01/05/2023) Provider Default CARDIOLOGY documented in this encounter Visit Diagnoses Not on filedocumented in this encounter Care Teams Risk Control Analyst Relationship Specialty Start Date End Date Wally Carter MD PCP - General Oncology/Hematology 05/16/17 Warren Reyes MD [address] [place] [address] [address] [place] [address] Visor Installer Cardiovascular Disease 11/07/17 Ashley Yañez NP [address] [place] [address] [address]IVE [address] [place] [address] Specialist Cardiology 12/12/20 documented as of this encounter
--- OUTSIDE RECORDS SUMMARY | 2024-07-10 10:15 | XMS_ITS | Patient Health Record ---
Author Organization [facility] Address [address] [facility] [address] [place] [address] Care Team Providers Care File System Installer Name Role Phone Wally Carter Primary Care Provider Unavailabl e Allergies Allergen (clinical drug ingredient) Drug/Non Drug Allergy documented on EMR Reaction Allergy Type Onset Date Status Latex Latex Unknown Allergy Active Reason For Referral No Information Medications Medication SIG (Take, Route, Frequency, Duration) Notes Start Date End Date Status Metoprolol Tartrate 25 MG 1 tablet with food Orally Twice a day Active Clopidogrel Bisulfate 75 MG 1 tablet Ora lly Once a day Active Atorvastatin Calcium 10 MG 1 tablet Oral ly Once a day Active Ipratropium-Albuterol 0.5-2.5 (3) MG/3ML 3 ml as needed Inhalation every 6 hrs Active Budesonide (Nasal) A ctive Omeprazole 20 MG 1 capsule 30 minutes before morning meal Orally Once a day Active Rivaroxaban Active Plan Of Treatment Pending Test Test Name Order Date Debridement of toenail 1-5 04/12/2020 Insurance Providers Payer Name Payer Address Payer Phone Subscriber Number Group Number Insured Name Patient Relationship to Insured Coverage Start Date Coverage End Date [employer] [address] [address] [place] [address] [id number] Darinel Boyer Self - patient is the insured Medical (General) History Medical History History ICD Code Pulmonary nodule Pneumonia Obstructive sleep apnea Allergic rhinitis Hyperlipidemia Atrial fibrillation Degenerative disease of the lumbar spine Coronary Artery Disease Surgical History Surgery Date(Month/Year) Historical lumbar spine surgery Historical Cardiac stent
--- OUTSIDE RECORDS SUMMARY | 2024-07-10 10:15 | XMS_ITS | Encounter Summary ---
Author Organization [facility] Address [address] [place] [address] Care Team Providers Care Tap Builder Name Role Phone Wally Carter MD Primary Care Provider Warren Plummer MD Unavailable [phone] Ashley Yañez NP Unavailable [phone] Encounter Details Date Type Department Care Team Description 05/08/2023 SCAN Medical Records [address] [place] [address] Deandra Barfield MD Social History Tobacco Use Types Packs/Day Years Used Date Smoking Tobacco: Former Cigarettes 2.5 Q uit: 1985 Smokeless Tobacco: Never Alcohol Use Standard Drinks/Week Comments Yes 0 (1 standard drink = 0.6 oz pur e alcohol) occasionally Sex Assigned at Date Recorded Not on file Job Start Date Occupation Industry Not on file Not on file Not on file documented as of this encounter Plan of Treatment Not on file documented as of this encounter Procedures Procedure Name Priority Date/Time Associated Diagnosis Comments OUTSIDE CT Routine 05/08/2023 documented in this encounter Results * OUTSIDE CT (05/08/2023) Provider Default RADIOLOGY documented in this encounter Visit Diagnoses Not on filedocumented in this encounter Care Teams Tap Builder Relationship Specialty Start Date End Date Wally Carter MD PCP - General Oncology/Hematology 05/16/17 Warren Reyes MD [address] [place] [address] [address] [place] [address] Program Director Scouting Cardiovascular Disease 11/07/17 Ashley Yañez, MARY LOU [address] [place] [address] [address] [place] [address] Specialist Cardiology 12/12/20 documented as of this encounter
--- OUTSIDE RECORDS SUMMARY | 2024-07-10 10:15 | XMS_ITS | Encounter Summary ---
Author Organization [facility] Address [address] [place] [address] Care Team Providers Care Puller Out Name Role Phone Wally Carter MD Primary Care Provider Warren Plummer MD Unavailable Ashley Yañez NP Unavailable Encounter Details Date Type Department Care Team Description 09/28/2020 Telephone Cardio P[facility] [address] [place] [address] [place] [phone] Warren Reyes MD [address] [place] [address] [place] [address] [id number] Social History Tobacco Use Types Packs/Day Years [...] on filedocumented in this encounter Care Teams Puller Out Relationship Specialty Start Date End Date Wally Carter MD PCP - General Oncology/Hematology 05/16/17 Warren Reyes MD [address] [place] [address] [address] [place], [place] [phone] Lining Vamper Cardiovascular Disease 11/07/17 Ashley Yañez, MARY LOU [address] [place] [address] Specialist Cardiology 12/12/20 documented as of this encounter
--- OUTSIDE RECORDS SUMMARY | 2024-07-10 10:15 | XMS_ITS | Encounter Summary ---
Author Organization [facility] Address [address] [place] [address] Care Team Providers Care Trash Man Name Role Phone Wally Carter MD Primary Care Provider Warren Plummer MD Unavailable [phone] Ashley Yañez NP Unavailable [phone] Encounter Details Date Type Department Care Team Description 10/03/2021 SCAN Medical Records [address] [place] [address] Abstract, Provider Social History Tobacco Use Types [...] Date/Time Associated Diagnosis Comments OUTSIDE LAB Routine 10/03/2021 documented in this encounter Results * OUTSIDE LAB (10/03/2021) Provider Abstract LAB documented in this encounter Visit Diagnoses Not on filedocumented in this encounter Care Teams Trash Man Relationship Specialty Start Date End Date Wally Carter MD PCP - General Oncology/Hematology 05/16/17 Warren Reyes MD [address] [place] [address] [address] [place] [address] Instructor Dancing Cardiovascular Disease 11/07/17 Ashley Yañez, MARY LOU [address] [place] [address] [address]IVE [address] [place] [address] Specialist Cardiology 12/12/20 documented as of this encounter
--- OUTSIDE RECORDS SUMMARY | 2024-07-10 10:15 | XMS_ITS | Encounter Summary ---
Author Organization [facility] Address [address] [place] [address] Care Team Providers Care Wood Casket Assembler Name Role Phone Wally Carter MD Primary Care Provider Warren Plummer MD Unavailable [phone] Ashley Yañez NP Unavailable [phone] Encounter Details Date Type Department Care Team Description 05/20/2017 Release of Information Medical Records [address] [place] [address] Abstract, Provider Social History Tobacco Use Types [...] on filedocumented in this encounter Care Teams Wood Casket Assembler Relationship Specialty Start Date End Date Wally Carter MD PCP - General Oncology/Hematology 05/16/17 Warren Reyes MD [address] [place] [address] [place] [address] Geotechnical Intern Cardiovascular Disease 11/07/17 Ashley Yañez NP [address] [place] [address] [address] [place] [address] Specialist Cardiology 12/12/20 documented as of this encounter
--- OUTSIDE RECORDS SUMMARY | 2024-07-10 10:15 | XMS_ITS | Encounter Summary ---
Author Organization [facility] Address [address] [place] [address] Care Team Providers Care Publicity Expert Name Role Phone Wally Carter MD Primary Care Provider Warren Plummer MD Unavailable [phone] Ashley Yañez NP Unavailable [phone] Reason for Visit * Reason Onset Date Comments other 09/02/2020 other 09/08/2020 LVMOM Encounter Details Date Type Department Care Team Description 09/02/2020 Telephone Cardio [facility] [address] [place] [address] Drive [address] [place] [address] Warren Reyes MD [address] [facility] [address] [place], [place] [phone] other; other (LVMOM ) Social History Tobacco Use Types Packs/Day Years Used Date Smoking Tobacco: Former Cigarettes 2.5 Q uit: 1984 Smokeless Tobacco: Former Alcohol Use Standard Drinks/Week Comments Yes 0 (1 standard drink = 0.6 oz pur e alcohol) Sex Assigned at Date Recorded Not on file Job Start Date Occupation Industry Not on file Not on file Not on file documented as of this encounter Miscellaneous Notes * Telephone Encounter - Elviajeffery Vikas - 09/08/2020 4:08 PM EDT 09/08/20 2nd attempt to contact patient to move appt up from DEC 2020 [place] to sooner with NAHEED. * Telephone Encounter - Krystin Davis R.N. - 09/02/2020 3:46 PM EDT I spoke with pt's and advised to stop the metoprolol. Also notified her of Holter apt on 09/20/20 at 9:30 am. We are working on an OV with [facility]HE[facility] to follow up to [facility]. She is awaiting a call for apt. She verbalized understanding and expressed gratitude. * Telephone Encounter - Krystin Davis R.N. - 09/02/2020 2:07 PM EDT Called , no answer. LVM requesting a call back. Cat, anything we can do to get pt in for OV with NAHEED? * Telephone Encounter - Warren Reyes MD - 09/02/2020 1:28 PM EDT Tell her to stop the metoprolol I will order the holter. I have no idea when I can see him * Telephone Encounter - Krystin Davis R.N. - 09/02/2020 9:21 AM EDT I spoke with pt's this morning. She states pt has not been doing well for the last several months. She states several times a week he feels dizzy, nauseous, and fatigued/lethargic. She states his HR has been very low, 30s-40s. He takes metoprolol 25 mg BID. They have not been checking his BP. She had called the office to make an overdue apt (was due back in May) and was told the next available apt is in December. She states he cannot wait that long, and his mental health is suffering. * Telephone Encounter - Beatriz Mercer - 09/02/2020 8:55 AM EDT 09/02/20: Pt's spouse Payal called to bk appt and with concerns that pt's pulse has been really low.She stated metoprolol making him feel very lousy, not in AFIB, but very lethargic with dizziness/lightheadedness spells. She can be reached at [phone] documented in this encounter Plan of Treatment Not on file documented as of this encounter Visit Diagnoses Not on filedocumented in this encounter Care Teams Publicity Expert Relationship Specialty Start Date End Date Wally Carter MD PCP - General Oncology/Hematology 05/16/17 Warren Reyes MD [address] [place] [address] [address] [place] [address] Backup Operator Cardiovascular Disease 11/07/17 Ashley Yañez NP [address] [place] [address] [address] [place] [address] Specialist Cardiology 12/12/20 documented as of this encounter
--- OUTSIDE RECORDS SUMMARY | 2024-07-10 10:15 | XMS_ITS | Encounter Summary ---
Author Organization [facility] Address [address] [place] [address] Care Team Providers Care Web Merchant Name Role Phone Wally Carter MD Primary Care Provider Warren Plummer MD Unavailable [phone] Ashley Yañez NP Unavailable [phone] Encounter Details Date Type Department Care Team Description 03/07/2020 Record Changer Tester Report Medical Records [address] [place] [address] Wally Carter MD Social History Tobacco Use [...] on filedocumented in this encounter Care Teams Web Merchant Relationship Specialty Start Date End Date Wally Carter MD PCP - General Oncology/Hematology 05/16/17 Warren Reyes MD [address] [place] [address] [place] [address] Engineering Tech Cardiovascular Disease 11/07/17 Ashley Yañez NP [address] [place] [address] [place] [address] Specialist Cardiology 12/12/20 documented as of this encounter
--- OUTSIDE RECORDS SUMMARY | 2024-07-10 10:15 | XMS_ITS | Encounter Summary ---
Author Organization [facility] Address [address] [place] [address] Care Team Providers Care Parts Finisher Name Role Phone Wally Carter MD Primary Care Provider Warren Plummer MD Unavailable [phone] Ashley Yañez NP Unavailable [phone] Reason for Visit * Reason Onset Date Comments Medication 11/09/2020 Cost Encounter Details Date Type Department Care Team Description 11/09/2020 Telephone Cardio PVC [facility] [address] [place] [address] Warren Reyes MD [address] [facility] [address] [place], [place] [phone] Medication (Cost) Social History Tobacco Use Types Packs/Day Years [...] encounter Miscellaneous Notes * Telephone Encounter - Lenora Cohen - 11/09/2020 1:12 PM EDT LVOM for pt to return call. - Cori BAZAN * Telephone Encounter - eBatriz Mercer - 11/09/2020 11:56 AM EDT 11/09/20 Pt's called to inquire what can be done about Xarelto cost. Medication is too expensiveand pt has tried and is allergic to many other options. Pt and can be reached at [phone] documented in this encounter Plan of Treatment Not on file documented as of this encounter Visit Diagnoses Not on filedocumented in this encounter Care Teams Parts Finisher Relationship Specialty Start Date End Date Wally Carter MD PCP - General Oncology/Hematology 05/16/17 Warren Reyes MD [address] [place] [address] [address] [place] [address] Electric Meter Repairer Cardiovascular Disease 11/07/17 Ashley Yañez NP [address] [place] [address] [address]IVE [address] [place] [address] Specialist Cardiology 12/12/20 documented as of this encounter
--- OUTSIDE RECORDS SUMMARY | 2024-07-10 10:15 | XMS_ITS | Encounter Summary ---
Author Organization [facility] Address [address] [place] [address] Care Team Providers Care Instrumentation Technologist Name Role Phone Wally Carter MD Primary Care Provider Warren Plummer MD Unavailable [phone] Ashley Yañez NP Unavailable [phone] Encounter Details Date Type Department Care Team Description 04/25/2023 SCAN Medical Records [address] [place] [address] Ashley Yañez NP [address] [place] [phone] Social History Tobacco Use Types Packs/Day Years [...] on filedocumented in this encounter Care Teams Instrumentation Technologist Relationship Specialty Start Date End Date Wally Carter MD PCP - General Oncology/Hematology 05/16/17 Warren Reyes MD [address] [place] [address] [place] [phone] Dentistry Teacher Cardiovascular Disease 11/07/17 Ashley Yañez, MARY LOU [address] [facility] [address] [place] [address] Specialist Cardiology 12/12/20 documented as of this encounter
--- OUTSIDE RECORDS SUMMARY | 2024-07-10 10:15 | XMS_ITS | Clinical Summary ---
Author Organization [facility] Address [address] [place] [address] Care Team Providers Care Manager Photo Name Role Phone Wally Carter MD Primary Care Provider Warren Plummer MD Unavailable [phone] Ashley Yañez NP Unavailable Allergies Active Allergy Reactions Severity Noted Date Comments Latex 05/20/2017 Medications Medication Sig Dispensed Refills Start Date End Date Status BUDESONIDE, NASAL, 32 MCG/ACT SuspensionIndications: Pneumonia due to infectious organism, unspecified laterality, unspecified part of lung,Gastroesophageal reflux disease without esophagitis,Obstructiv e sleep apnea,Obesity (BMI 30-39.9),Elevated blood pressure reading,Allergic rhinitis, unspecified chronicity, unspecified seasonality, unspecified trigger by Nasal route as needed. 0 Active Loratadine-Pseudoephed rine (CLARITIN-D 24 HOUR OR) Take by mouth as needed. 0 Active Dexlansoprazole 30 MG CAPSULE DELAYED RELEASE Take by mouth daily as needed. 0 Active amlodipine (NORVASC) 5 MG tablet TAKE 1 TABLET BY MOUTH EVERY DAY 90 Tablet 1 08/15/2023 Active atorvastatin (LIPITOR) 80 MG tablet TAKE 1 TABLET BY MOUTH EVERY DAY 90 Tablet 0 10/10/2023 Active clopidogrel (PLAVIX) 75 MG tablet TAKE 1 TABLET BY MOUTH EVERY DAY 90 Tablet 0 10/10/2023 Active Rivaroxaban (Xarelto) 20 MG Tab Take 1 Tablet by mouth daily. 90 Tablet 3 11/25/2023 Active Active Problems Problem Noted Date Chest pain 08/14/2022 Coronary artery disease 12/12/2020 Last Assessment & Plan: Patient has history of coronary artery disease status post angioplasty and stenting of the LAD in 2019. Patient presents today for triage visit reporting increased exertional fatigue symptoms which have been worsening over the last couple of months. We will arrange for repeat ischemic evaluation with a nuclear stress test using an exercise protocol. He is not on a beta-julita. Patient advised to avoid any strenuous exercise until his nuclear stress test is completed. Continue with Plavix and statin as prescribed. Hypertension 12/12/2020 Last Assessment & Plan: Blood pressure today 138/82. Continue with amlodipine as prescribed. Atrial fibrillation 12/12/2020 Last Assessment & Plan: Patient has history of paroxysmal atrial fibrillation and remains on Xarelto for anticoagulation. He is not on beta-julita due to baseline bradycardia. He reports ongoing intermittent palpitations however it is unclear if he is having any prolonged episodes of atrial fibrillation. Will consider repeating nuclear monitoring technician if this continues. He will monitor his symptoms and let us know if he continues to have episodes of atrial fibrillation which are lasting longer than 10 or 15 minutes. Bradycardia 09/02/2020 Last Assessment & Plan: Patient is concerned about bradycardia with baseline heart rate in the 50s. During hospitalization he reports that his heart rate was as low as 40 and the providers there were concerned. He did have a 48-hour nuclear monitoring technician completed in September which showed no evidence of significant bradycardia or pauses. We will once again repeat a 24-hour nuclear monitoring technician. Pulmonary nodule 04/01/2018 Pneumonia 01/28/2018 Obstructive sleep apnea 05/20/2017 Overview: CPAP Allergic rhinitis 05/20/2017 Hyperlipidemia 05/20/2017 Last Assessment & Plan: Recent LDL cholesterol was 43. This is at goal. Continue with statin as prescribed. Family History Medical History Relation Name Comments CAD Father [place] Father Thyroid Disorder Mother Relation Name Status Comments Father Mother Social History Tobacco Use Types Packs/Day Years Used Date Smoking Tobacco: Former Cigarettes 2.5 Q uit: 1984 Smokeless Tobacco: Never Alcohol Use Standard Drinks/Week Comments Yes 0 (1 standard drink = 0.6 oz pur e alcohol) 2-4 beers per wk Sex Assigned at Date Recorded Not on file Job Start Date Occupation Industry Not on file Not on file Not on file Last Filed Vital Signs Vital Sign Reading Time Taken Comments Blood Pressure 131/74 10/16/2023 8:03 AM EDT Pulse 55 10/16/2023 8:03 AM EDT Temperature - - Respiratory Rate 14 04/01/2018 11:25 AM EST Oxygen Saturation 96% 10/16/2023 8:03 AM EDT Inhaled Oxygen Concentration - - Weight 102.1 kg (225 lb) 10/16/2023 8:03 AM EDT Height 170.2 cm (5' 7 ) 10/16/2023 8:03 AM EDT Body Mass Index 35.24 10/16/2023 8:03 AM EDT Plan of Treatment Health Maintenance Due Date Last Done Comments Covid-19 Vaccine (#1) 1951 DEPRESSION SCREEN 1963 HEPATITIS C SCREENING 1969 DTAP/TDAP/TD (1 - Tdap) 1970 CHOLESTEROL SCREENING 1971 COLON CANCER SCREENING 2001 SHINGLES VACCINE (1 of 2) 2001 ABDOMINAL AORTIC ANEURYSM (A AA) SCREENING 2016 FALL RISK ASSESSMENT 2016 PNEUMOCOCCAL VACCINE (1 - PCV) 2016 BMI CHECK/ADVISE 03/11/2024 04/01/2018, , 07/30/2017, Additional history exists INFLUENZA (Season Ended) 2024 12/05/2018 Care Teams Manager Photo Relationship Specialty Start Date End Date Wally Carter MD PCP - General Oncology/Hematology 05/16/17 Warren Reyes MD [address] [place] [address] [address]IVE [address] [place] [address] Ignition Mechanic Cardiovascular Disease 11/07/17 Ashley Yañez NP [address] [place] [address] [address]IVE [address] [place] [address] Specialist Cardiology 12/12/20
== END 2024-07-10 09:42 | disposition home or self-care (01) ==
PROVIDERS: Emergency Provider Emergency Medicine; PCP Internal Medicine Medical Oncology
DX: S80.11XA Contusion of right lower leg, initial encounter (principal); X58.XXXA Exposure to other specified factors, initial encounter; Y93.9 Activity, unspecified; Y92.9 Unspecified place or not applicable; Y99.9 Unspecified external cause status; M79.661 Pain in right lower leg; I48.0 Paroxysmal atrial fibrillation; I10 Essential (primary) hypertension; Z79.01 Long term (current) use of anticoagulants
CPT/HCPCS: 73590; 99282; 99283

== ENCOUNTER → 2024-07-10 09:03 | Outpatient (BNV) | payer MEDICARE, SELFPAY | PROVIDERS: Emergency Provider Emergency Medicine; PCP Internal Medicine Medical Oncology; Visit Provider Radiology Diagnostic Radiology | DX: M79.661 Pain in right lower leg (principal) | CPT/HCPCS: 73590 ==

== ENCOUNTER 2024-08-25 10:45 | Outpatient (AMB) | payer MEDICARE, SELFPAY ==
[2024-08-25 10:47] VITALS: BP 114/64; PULSE 50; O2SAT 95; BMI 35.4
--- NOTE | 2024-08-25 10:47 | MHC.OFFVIS ---
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 Patient states that he has been using his CPAP every night. CPAP therapy has been affecting beneficial. He does use it for more than 4 hours a night. He does get supplies through his [employer] company, [employer]. I did call them and did send a script for him to continue getting supplies. In the meantime I did download the machine. His AHI is down to less than 1 which is reassuring. Current pressures are adequate. Therefore we have to adjust anything at this time. His machine seems to be worse in working order will continue , but, sometimes he wakes up with the machine. It may be that his pressures are going up and he wakes up from the pressures. In the meantime he does have issues with shortness of breath at times. Unfortunately he did gain some weight since we last spoke. The patient also has had issues with the elevated diaphragm on the left. The patient is also said pulmonary nodules. He did have a chest x-ray which I did review from 07/29/2023 at [facility] which is considered abnormal with elevated hemidiaphragm. Therefore, I will request a CT scan of the chest to better address the elevated diaphragm in the atelectasis and also better assess his pulmonary nodules. The patient also has a postnasal drip. He does have underlying allergies. Will further treat him with optimizing his medications. He will be helpful to get some pulmonary function studies to assess his lung capacity at this time. Therefore, will continue using the CPAP. I did decrease the maximum pressure from 16-12. He will get a CT scan and PFTs and will follow-up. 03/19/2024 the patient is here for a pulmonary follow-up visit. Overall the patient has been doing well. He still has some dyspnea on exertion [id number] severity. We did review his pulmonary function studies which were reassuring. He does have a low normal total lung capacity and a low-normal diffusing capacity. In part due to his elevated hemidiaphragm. He did have a CT scan of the chest also though we personally reviewed. He has few pulmonary nodules that appear to be benign. Although we have to compare them to the previous CT scan that he had back at [facility]. In addition to that the atelectasis is persistent on the left base and no evidence of any significant disease there. The patient is going to work on exercise and also on weight loss to try to decrease the abdominal pressure and allow the lung to expand better. Otherwise will continue with current CPAP therapy. The CPAP therapy continues to be affecting beneficial and he use more than 4 hours a night. Will follow-up in a year's time with a repeat CT scan to follow-up with the pulmonary nodules. 05/04/2024 the patient is here for a sick visit. He has been coughing so last evaluated him. He was placed on prednisone also Z-Jim. Although he is not significantly better. Still coughing primarily at nighttime. At times is productive. Having hard time sleeping. No fevers or chills. Denies any chest pain. He does have a rescue inhaler that he has use seldom. He is going to start using a little bit more. Will try a nebulizer treatment in the office. Will start him on doxycycline and also cough medication. If the patient is no better we can also start him back on prednisone and also consider a steroid inhaler. His last CT scan was reassuring. Right now I do not appreciate any crackles or focal examination. He does have some postablation cough. 08/25/2024 the patient is here for a pulmonary follow-up visit. He has multiple complaints 1 complains he has been having noticing some shortness of breath with activity. Tnnb-rg-eocgsntl severity. He attributes it to his cardiac condition in part. He does have AFib and it tends to go in and out of it. He did have PFTs back a year ago or so which demonstrating no evidence of any obstruction although possibly some small airways disease. Will go ahead and try him on a long-acting muscarinic antagonist to see if this provides some relief in his respiratory symptoms. In the meantime will continue to follow-up closely with Cardiology. The patient also has been having issues with his CPAP. He has been noticing some gasping at nighttime. Does not happen all the time but when it happens is pretty significant. I did download his CPAP. Seems like for the last 3 months his average pressure was around 8 cm of water but now his average pressures increased to about 10-11. He may be volume status issue. I did recommend he has can continue a low-sodium diet to minimize his fluid retention. He is not taking a diuretic at this time although he is take 1 in the past. He notices weight gain we can consider a short course of diuretics. For now though he will try to sleep elevated to minimize the orthopnea symptoms that he has been describing. In addition to that I will increase the CPAP pressures from 12 cm to 15 cm to provide him some additional relief in case the PAP therapy needs to increase. The patient will return in 6 months at that point he will undergo a CT scan to follow-up with the pulmonary nodule noted on his last CAT scan from 02/2024 done at [facility]. The nodule measures 5 mm in size and was on the right hemithorax. [facility] Medical History Dyspnea Chronic allergic rhinitis Pulmonary nodules Abnormal chest x-ray Paralysis, diaphragm Chronic cough ROBIN on CPAP Social History Patient Tobacco Use Status: Former Tobacco user Tobacco use type: Cigarette Years Smoked: 25 Review of Systems Const Reports difficulty sleeping and Reports weight gain Eyes Reports no additional complaints ENT Reports nasal congestion, Reports nasal discharge and Reports post nasal drip Card Denies chest pain and Reports dyspnea on exertion Resp Reports cough, Reports dyspnea on exertion and Reports wheezing GI Denies heartburn Musc Reports no additional complaints Skin/Breast Denies rash Neuro Reports no additional complaints Jorge Luis/Lymph Reports no additional complaints Aller/Immun Reports wheezing Physical Exam Vital Signs: Last Vital Signs Pulse 50 08/25/24 10:47 BP 114/64 08/25/24 10:47 Pulse Ox 95 08/25/24 10:47 Oxygen Delivery Method Room Air 08/25/24 10:47 BMI result Body Mass Index 35.4 Const General: comfortable HEENT General nose exam: Abnormal mucous membranes and turbinates present boggy Neck Neck: Yes supple Chest Chest palpation & inspection: normal inspection of the chest Resp Effort & Inspection: normal respiratory effort and Actively coughing Auscultation: diminished lung sounds Cardio Heart sounds: S1 normal heart sound present and S2 normal heart sound present GI Palpation (GI): Soft to palpation Skin General skin exam: no rashes or lesions noted Extrem General: No clubbing, No cyanosis and Yes edema Assessment & Plan Assessment & Plan (1) ROBIN on CPAP: Code(s): G47.33 - Obstructive sleep apnea (adult) (pediatric) Category: Medical (2) Chronic cough: Code(s): R05.3 - Chronic cough Category: Medical (3) Paralysis, diaphragm: Code(s): J98.6 - Disorders of diaphragm Category: Medical (4) Pulmonary nodules: Code(s): R91.8 - Other nonspecific abnormal finding of lung field Category: Medical (5) Chronic allergic rhinitis: Code(s): J30.9 - Allergic rhinitis, unspecified Category: Medical (6) Dyspnea: Code(s): R06.00 - Dyspnea, unspecified Category: Medical Qualifiers: Dyspnea type: dyspnea on exertion Qualified Code(s): R06.09 - Other forms of dyspnea Plan continue APAP, adjusted pressures 6-12 CT chest 02/2025 continue nasocort Astelin nasal spray neti bottle rinsing at night weight management [place] as needed/ Albuterol vis nebulizer start Spiriva F/U 6 months Orders: Orders CT chest wo IV con 02/08/25 R91.8 - Other nonspecific abnormal finding of lung field Medications: New tiotropium bromide 2.5 mcg/actuation (Spiriva Respimat) 2 puffs inhalation DAILY 1 ea 11RF 30 days Coding Level of Care Code Est Pt Level 4 (19943) Complex EM visit Add On G2211 Diagnoses ROBIN on CPAP G47.33 Chronic cough R05.3 Paralysis, diaphragm J98.6 Pulmonary nodules R91.8 Chronic allergic rhinitis J30.9 Dyspnea on exertion R06.09 Dyspnea type: dyspnea on exertion Time Spent (min) 19
--- OUTSIDE RECORDS SUMMARY | 2024-08-25 12:14 | XMS_ITS ---
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 07/27/2024 Coronary artery disease of [place] artery of [place] heart with stable angina pectoris (ICD-10 - I25.118) He was admitted to [facility] last weekend for anginal chest pain. [...] the company that supplies it and his [employer] doctor for more comfortable device. 07/27/2024 GERD (gastroesophageal [...] Reason: annual exam review labs Provider Name:Wally Alstonrne, 09/25/2024 09:30:00 AM, [address] [place] [address] [address] [place], [place], [id number], Progress Notes * Derek HERNADEZOB:1950 (74 yo M)Acc No.[id number]:07/27/2024 Progress Notes Patient:?Darinel HERNADEZ Provider:?Wally Carter MD :1950???Age:74 Y???Sex:Male Robert e:07/27/2024 [facility] Subjective: * Chief Complaints: * ???Coronary artery diseaseHy perlipidemiaSleep apneaObesityRestless leg syndromeAtrial fibrillationAnticoagulation * HPI: ???COVID-19 Screening:?He returns for management of his numerous medical issues.? He continues his efforts at weight loss and trying to consume a healthy low-cholesterol low- sodium low calorie diet.? He continues to try to reduce his weight.? He is using his CPAP but finds the mask uncomfortable.? He has had several PVCs lately.? He has had a couple of episodes of atrial fibrillation. He has not had any bleeding.? He rises from sleep 2 or 3 times a night to urinate.? His back pain is recently minimal.? ENT his went on a 22 mile bike ride yesterday and he experienced no shortness of breath with exertion or angina.? He had a trace? of edema in his right leg but none in the left which he says has been present since his surgery. ?Questions?Have you had any new onset fever, chills, cough, congestion, sore throat, shortness of breath, muscle aches??No * ROS:?General/Constitutional:?pain?Knees and low back.?Chills?denies.?Fatigue?admits.?Fever?denies.?ENT:?Decreased hearing?denies.?Respiratory:?Cough?denies.?Cardiovascular:?Chest pain with exertion?denies.?Dyspnea on exertion?denies.?Shortness of breath?denies.?Gastrointestinal:?Constipation?denies.?Decreased appetite?denies.?Diarrhea?denies.?Heartburn?denies.?Nausea?denies.?Rectal bleeding?denies.?Vomiting?denies.?Hematology:?bruising?denies.?petechiae?denies.?Swollen glands?none have been noted.?Genitourinary:?Frequent urination?twice a night.?Musculoskeletal:?Muscle aches?denies.?Painful joints?denies.?Sciatica?denies.?Weakness?denies.?Skin:?Itching?denies.?Rash?denies.?Skin lesion(s)?denies.?Neurologic:?Difficulty speaking?denies.?Dizziness?denies.?Headache?denies.?Low back pain?denies.?Psychiatric:?Depressed mood?denies.? * Medical History:? * Surgical History:?resection of lipoma renal biopsy fracture right thumb colonoscopy, Dr. Bacon, adenomatous polyp transverse colon, Gastritis and adenomatous polyp hepatic flexure 2002crush injury right third finger at work 2012COLONOSCOPY 2013 OCTRight knee miniscus surgery 02/2015[place], L45 disc decomression 06/2016Cardiac catheterization and angioplasty with a stent LAD, [facility] 09/2019endoscopy and colonoscopy at [facility] 01/2024No history * Hospitalization/Major [...] Payal 14 years. He was born in [place]. They have 3 children. 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 He stopped smoking over 20 years [...] Objective: * Vitals:?Ht: 68, Wt:229, BMI: 34.82, BP:130/60, HR:66, RR:16, Temp:97.9, Oxygen sat %:98, Wt-k.87. * Examination: ???General Examination: ?GENERAL APPEARANCE:?pleasant, well nourished, well developed, in no acute distress, calm and relaxed, obese, man.?HEAD:?atraumatic, normocephalic.?EYES:?eomi, perrla, anicteric, conjugate.?EARS:?normal.?NOSE:?septum intact.?ORAL CAVITY:?normal, unremarkable.?NECK/THYROID:?no jugular venous distention, no carotid bruit, thyroid normal.?LYMPH NODES:?no enlarged lymph nodes,spleen normal.?SKIN:?no suspicious lesions, anicteric.?HEART:?no clicks, gallops, murmurs, or rubs, irregular rhythm, S1, S2 normal, no s3, or vascular bruits.?LUNGS:?clear to auscultation .?BREASTS:??no masses palpable bilaterally.?ABDOMEN:?bowel sounds normal, no ascites, no organomegaly, no mass.?RECTAL EXAM:?not examined.?MUSCULOSKELETAL:?extremities unremarkable, no clubbing, cyanosis or edema.?PERIPHERAL PULSES:?normal.?NEUROLOGIC:?alert and oriented, cranial nerves 2-12 grossly intact, deep tendon reflexes 2+ symmetrical, motor strength normal upper and lower extremities, sensory exam intact.?PSYCH:?alert, oriented.? Assessment: * Assessment: 1.?Coronary artery disease o f [place] artery of [place] heart with stable angina pectoris - I25.118 (Primary)???Notes :He was admitted to [facility] last weekend for anginal chest pain. A stress test was unremarkable. He is now home. He'll be seen in the office in the near future after blood work.???2.?Other and unspecified hyperlipidemia - E78.5???Notes :His lipids are currently well controlled and no change in his regimen was made today.???3.?Lumbar radiculopathy - M54.16???Notes :His chronic low back pain continues and occasionally is severe but recently has been mild.? No change in his regimen was made.???4.?Sleep apnea - G47.30???Notes :He continues to use the CPAP.? He occasionally struggles with some mask.? He was referred back to the company that supplies it and his [employer] doctor for more comfortable device.???5.?GERD (gastroesophageal reflux disease) - K21.9???Notes :His reflux is well controlled with current medications.???6.?Obesity - E66.9???Notes :His body mass index is 34. He has gained 5 pounds. We have discussed his weight loss strategy and his diet and his nutrition. Continue to try lose weight at a rate of one half of a pound per week.???7.?Restless leg syndrome - G25.81???Notes :He will continue on his current therapy. He finds it quite beneficial.???8.?Former smoker - Z87.891???Notes :He is highly motivated not to smoke. He has a plan for prevention of relapse in times of stress.???9.?Hearing loss - H91.90???Notes :He has not noticed any change in his hearing. This problem will be followed carefully and if he experiences a loss and acuity he will be referred for amplification evaluation.??? Plan: * Treatment: 2.?Lumbar radiculopathy?LAB: PROFILE, FASTING (COMPREHENSIVE METABOLIC) ?LAB: CBC w DIFF ?LAB: Lipid Panel 3.?Sleep apnea?LAB: PROFILE, FASTING (COMPREHENSIVE METABOLIC) ?LAB: CBC w DIFF ?LAB: Lipid Panel 4.?GERD (gastroesophageal re flux disease)?LAB: PROFILE, FASTING (COMPREHENSIVE METABOLIC) ?LAB: CBC w DIFF ?LAB: Lipid Panel 5.?Others? Continue Xarelto Tablet, 20 MG, 1 tablet with food, Orally, Once a day.?? * Procedure Codes:?55836 MEASU RE BLOOD OXYGEN LEVEL * Preventive Medicine:? ??Counseling:?Care goal follow-up plan:?Counseling for abnormal BMI given?Yes ?Above Normal BMI Follow-up?Dietary management education, guidance, and counseling, Dietary needs education ?Smoking/Tobacco Use?Patient counseled on the dangers of tobacco use and urged to quit.?07/27/2024 * Follow Up:?3 Months (Reason: annual exam review labs) * Images: * Sign off status: Completed true * Provider:?Wally Carter MD Date:?07/09 Generated for Jeradi ng/Faarlineg/eTransmitting on:?08/25/2024 12:14 PM EDT History and Physical Notes * HPI [...]
== END 2024-08-25 11:23 | disposition home or self-care (01) ==
LOC: HO.HPS 10:46
PROVIDERS: PCP Internal Medicine Medical Oncology; Visit Provider Hospitalist
DX: G47.33 Obstructive sleep apnea (adult) (pediatric) (principal); R05.3 Chronic cough; J98.6 Disorders of diaphragm; R91.8 Other nonspecific abnormal finding of lung field; J30.9 Allergic rhinitis, unspecified; R06.09 Other forms of dyspnea
CPT/HCPCS: 99214; G2211

== ENCOUNTER → 2024-08-25 10:45 | Outpatient (BNVA) | payer MEDICARE, SELFPAY | PROVIDERS: PCP Internal Medicine Medical Oncology; Visit Provider Hospitalist | DX: J98.6 Disorders of diaphragm (principal); G47.33 Obstructive sleep apnea (adult) (pediatric); J30.9 Allergic rhinitis, unspecified; R05.3 Chronic cough; R06.09 Other forms of dyspnea | CPT/HCPCS: 99212 ==

== ENCOUNTER 2024-12-26 08:43 | Outpatient (REF) | payer MEDICARE, SELFPAY ==
--- OUTSIDE RECORDS SUMMARY | 2024-02-27 13:15 | XMS_ITS ---
Author Organization Wally Carter III, MD Address [address] [place] [address] Care Team Providers Care Accountant Supervisor Name Role Phone Dr. Wally Carter III Primary Care Provider [phone] REASON FOR VISIT follow up Social History Sex Assigned At : Social History Observation Description Sex Assigned At Male Encounters Encounter Location Date Provider Diagnosis Wally Carter III, MD [address] [place] [address] [place] [address] 02/27/2024 Wally Carter Plan Of Treatment Next Appt Details Provider Name:Wally Carter , 12/29/2024 09:45:00 AM, [address] [place] [address] [place], [address], Provider Name:Wally Carter , 09/28/2025 09:30:00 AM, [address] [place] [address] [address] [address], [place], [address], Progress Notes * Derek HERNADZEOB:1950 (74 yo M)Acc No.[id number]:02/27/2024 Progress Notes Patient: Darinel FAM Provider: Maria Carter MD :1950 A ge:73 Y S ex:Male Date:02/27/2024 Address:[address] [place], [place] [id number] Subjective: * Chief Complaints: * 1 . Follow up. * Medical History: Objective: * Vitals: Assessment: Plan: * Treatment: * Images: * The named appointment provid er may or may not be the originator of this progress note, and it is not deemed complete until electronically signed by the appointment provider. Sign off status: Pending * Provider: Maria Carter MD Date: 04/29/2023 Generated for Ravindra petersen/Sonya/eTransmitting on: 08:47 AM EDT
--- OUTSIDE RECORDS SUMMARY | 2024-04-21 10:15 | XMS_ITS ---
Author Organization Wally Carter III, MD Address [address] [place] [address] Care Team Providers Care Payroll Supervisor Name Role Phone Dr. Wally Carter III Primary Care Provider Allergies Allergen (clinical drug ingredient) Drug/Non Drug Allergy documented on EMR Reaction Allergy Type Onset Date Status Latex Latex Unknown Allergy Active REASON FOR VISIT Telehealth Medications Medication SIG (Take, Route, Frequency, Duration) Notes Start Date End Date Status Xarelto 20 MG 1 tablet with food O rally Once a day Active Dexilant 60 MG 1 capsule Orally Onc e a day Active Clopidogrel Bisulfate 75 MG 1 tablet Ora lly Once a day Active Atorvastatin Calcium 10 MG TAKE 1 TABLET ONCE A DAY Orally Once a day Active amLODIPine Besylate 5 MG 1 tablet Orally Once a day Active Azelastine HCl 0.1 % 1 puff in each nost ril Nasally Twice a day Active Nasacort Allergy 24HR Active Claritin Active Social History Tobacco Use: Social History Observation Description Date Details (start date - stop date) Former Smoker NA - NA Sex Assigned At : Social History Observation Description Sex Assigned At Male Tobacco Use/Smoking Question Answer Notes Patient is a former smoker How long has it been since you last smoked? > 10 years Additional Findings: Tobacco Non-User Ex-cigaret te smoker Vital Signs Blood pressure systolic 112 mm Hg 04/21/19 25 Blood pressure diastolic 63 mm Hg 025 Heart Rate 77.0 /min 04/21/2024 Height 68 in 04/21/2024 Weight 229 lbs 04/21/2024 BMI 34.82 kg/m2 04/21/2024 Encounters Encounter Location Date Provider Diagnosis Wally Carter III, MD [address] [place] [address] [place] [address] 04/21/2024 Wally Carter Other and unspecifie d hyperlipidemia E78.5 ; Paroxysmal atrial fibrillation I48.0 ; Sleep apnea G47.30 ; Obesity E66.9 ; Former smoker Z87.891 ; Coronary artery disease of [place] artery of [place] heart with stable angina pectoris I25.118 and BPH (benign prostatic hyperplasia) N40.0 Assessments Encounter Date Diagnosis (ICD Code) Assessment Notes Treat ment Notes Treatment Clinical Notes 04/21/2024 Other and unspecifie d hyperlipidemia (ICD-10 - E78.5) His lipids are currently stable aand no change in his therapy was needed today. 04/21/2024 Paroxysmal atrial fibrillation (ICD-10 - I48.0) He remaiins anticoagulated. He is compliant with his medications. He has had paroxysms of atrial fibrillation recently. He spoke to the operator cavity pump who ordered a Holter monitor and gave him a follow-up appointment. 04/21/2024 Sleep apnea (ICD-10 - G47.30) He has been compliant with his CPAP machine. He denies any recent daytime somnolence. Surveillance and sleep medicine. Will continue. 04/21/2024 Obesity (ICD-10 - E66.9) His body mass index is 34. He has gained 5 pounds. We have discussed his weight loss strategy and his diet and his nutrition. Continue to try lose weight at a rate of one half of a pound per week. 04/21/2024 Former smoker (ICD-1 0 - Z87.891) He is highly motivated not to smoke. He has a plan for prevention of relapse in times of stress. 04/21/2024 Coronary artery disease of [place] artery of [place] heart with stable angina pectoris (ICD-10 - I25.118) He was admitted to [facility] last weekend for anginal chest pain. A stress test was unremarkable. He is now home. He'll be seen in the office in the near future after blood work. 04/21/2024 BPH (benign prostati c hyperplasia) (ICD-10 - N40.0) He arises from sleep once or twice a night to urinate. We reviewed lifestyle modification as a could reduce nocturia. Plan Of Treatment Medication Medication Name Sig Start Date Stop Date Notes Xarelto 20 MG 1 tablet with food O rally Once a day Dexilant 60 MG 1 capsule Orally Once a day Clopidogrel Bisulfate 75 MG 1 tablet Orally Once a day Atorvastatin Calcium 10 MG TAKE 1 TABLET ONCE A DAY Orally Once a day amLODIPine Besylate 5 MG 1 tablet Orally Once a day Azelastine HCl 0.1 % 1 puff in each nost ril Nasally Twice a day Nasacort Allergy 24HR Claritin Next Appt Details Follow Up: as scheduled, Feb, Reason: OV, Regular check-up Provider Name:Wally Carter , 12/29/2024 09:45:00 AM, [address] [place] [address] [address], [place], [phone], Provider Name:Wally Carter , 09/28/2025 09:30:00 AM, [address] [place] [address] [address], [place], [phone], Progress Notes * Derek BOYEROB:1950 (74 yo M)Acc No.[id number]:04/21/2024 Patient: Anselmo ANGUIANODarinel MENDIOLA Provider: Maria Carter MD :1950 A ge:74 Y S ex:Male Date:04/21/2024 [facility] Subjective: * Chief Complaints: * T elehealth * HPI: * : Telehealth L ocation of provider rendering services: { ...} [address] [facility] [address] L ocation of patient: karol jaquez listed in demographics for today's visit P atient identification confirmed using: N raymond, T elehealth method: T elephone only. Patient not visible to care provider. C onsent: P atient verbally consented to treatment, Patient verbally consented to billing insurance company, Patient informed of any privacy concerns related to method of visit T otal time spent with patient (mins) 1 5 The patient, a 74-year-old male, reported experiencing a lot of congestion in his head and a headache upon waking up around 4:00 AM. He also had bouts of atrial fibrillation (Afib) on and off for most of the morning, which prompted him to contact his operator cavity pump. The patient's heart rate was around 77 and his blood pressure was 112/63. He reported no chest pains, other than muscular pain from coughing. The patient has been experiencing coughing, which has improved slightly but is still present. He mentioned that whenever he gets sick, it immediately affects his lungs or chest. He has been susceptible to this ever since he had bronchitis many years ago. The patient has been trying to consume fluids and food, although he doesn't have much of an appetite. He has been experiencing random, short-lived episodes of Afib.The operator cavity pump did not make any change in his medication but did give him a follow-up appointment. The heart rate has not been excessive. A Holter monitor has been ordered. * ROS: G eneral/Constitutional: pain o nly normal aches and pains. C hills d enies.?Fatigue a dmits. F ever d enies. A llergy/Immunology: Admits C ongestion. E NT: Decreased hearing d enies. R espiratory: Cough d enies. C ardiovascular: Chest pain with exertion d enies. D yspnea on exertion?denies. S hortness of breath d enies. G astrointestinal: Constipation o ccasional. D ecreased appetite d enies. D iarrhea t hat is infrequent. H eartburn d enies. N ausea d enies. R ectal bleeding d enies. V omiting d enies. H ematology: bruising d enies. p etechiae d enies. S wollen glands n one have been noted. G enitourinary: Frequent urination o nce a night. M usculoskeletal: Muscle aches d enies. P ainful joints d enies. S ciatica d enies. W eakness d enies. S kin: Itching d enies. R robel d enies. S kin lesion(s)?denies. N eurologic: Difficulty speaking d enies. D izziness d enies.?Headache d enies. L ow back pain d enies. P sychiatric: Depressed mood d enies. * Medical History: * Surgical History: r esection of lipoma renal biopsy fracture right thumb colonoscopy, Dr. Levy, adenomatous polyp transverse colon 2002crush injury right third finger at work 2011COLONOSCOPY 2012 OCTRight knee miniscus surgery 02/2015[place], L45 disc decomression 06/2016Cardiac catheterization and angioplasty with a stent LAD, [facility] 09/2019endoscopy and colonoscopy at [facility] 01/2024No history * Hospitalization/Major Diagno stic Procedure: A trial fibrillation 02/2018No history * Family History: F ather: 74 yrs, cardiac disease, allergies,overweight, adult onset diabetes mellitus, diagnosed with DM. M other: alive 87 yrs, thyroid problems, migraines. S iblings: alive, prostate cancer. S pouse: alive. 3 brother(s) - healthy. 3 daughter(s) - healthy. . His father and 3 brothers all have allergies. He is not aware of any family inherited cancer syndromes. He is not aware of any family history of mental illness, substance use disorders or addictions. * Social History: T obacco Use: T obacco Use/Smoking P atient is a f ormer smoker H ow long has it been since you last smoked??> 10 years A dditional Findings: Tobacco Non-User E x-cigarette smoker Yuly araiza has been to [place] 14 years. He was born in [place]. They have 3 children. 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 He stopped smoking over 20 years ago. * Medications: T akingAzelastine HCl 0.1 % Solution 1 puff in each nostril Nasally Twice a day amLODIPine Besylate 5 MG Tablet 1 tablet Orally Once a day Claritin Nasacort Allergy 24HR Atorvastatin Calcium 10 MG Tablet TAKE 1 TABLET ONCE A DAY Orally Once a day Clopidogrel Bisulfate 75 MG Tablet 1 tablet Orally Once a day Xarelto 20 MG Tablet 1 tablet with food Orally Once a day Dexilant 60 MG Capsule Delayed Release 1 capsule Orally Once a day Taking Azelastine HCl 0.1 % Solution 1 puff in each nostril Nasally Twice a day Taking amLODIPine Besylate 5 MG Tablet 1 tablet Orally Once a day Taking Claritin Taking Nasacort Allergy 24HR Taking Atorvastatin Calcium 10 MG Tablet TAKE 1 TABLET ONCE A DAY Orally Once a day Taking Clopidogrel Bisulfate 75 MG Tablet 1 tablet Orally Once a day Taking Xarelto 20 MG Tablet 1 tablet with food Orally Once a day Taking Dexilant 60 MG Capsule Delayed Release 1 capsule Orally Once a day DiscontinuedPaxlovid (300/100) 20 x 150 MG & 10 x 100MG Tablet Therapy Pack 3 tablets Orally Twice a day Medication List reviewed and reconciled with the patientDiscontinued Paxlovid (300/100) 20 x 150 MG & 10 x 100MG Tablet Therapy Pack 3 tablets Orally Twice a day Medication List reviewed and reconciled with the patient * Allergies: L atexno[Allergies Verified] Objective: * Vitals: H t: 68, Wt:229, BMI:34.82, BP:112/63, HR:77.0, Wt-k.87. Assessment: * Assessment: 1. P aroxysmal atrial fibrillation - I48.0 (Primary) N otes :He remaiins anticoagulated. He is compliant with his medications. He has had paroxysms of atrial fibrillation recently. He spoke to the operator cavity pump who ordered a Holter monitor and gave him a follow- up appointment. 2 . O ther and unspecified hyperlipidemia - E78.5 N otes :His lipids are currently stable aand no change in his therapy was needed today. 3 . S leep apnea - G47.30 N otes :He has been compliant with his CPAP machine. He denies any recent daytime somnolence. Surveillance and sleep medicine. Will continue. 4 . O besity - E66.9 N otes :His body mass index is 34. He has gained 5 pounds. We have discussed his weight loss strategy and his diet and his nutrition. Continue to try lose weight at a rate of one half of a pound per week. 5 . F ormer smoker - Z87.891 N otes :He is highly motivated not to smoke. He has a plan for prevention of relapse in times of stress. 6 . 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 A stress test was unremarkable. He is now home. He'll be seen in the office in the near future after blood work. 7 . B PH (benign prostatic hyperplasia) - N40.0 N otes :He arises from sleep once or twice a night to urinate. We reviewed lifestyle modification as a could reduce nocturia. Plan: * Treatment: * Procedure Codes: * Preventive Medicine: Counseling: C are goal follow-up plan: Counseling for abnormal BMI given Y es Above Normal BMI Follow-up D ietary management education, guidance, and counseling, Dietary needs education, Exercise promotion: strength training S moking/Tobacco Use Patient counseled on the dangers of tobacco use and urged to quit. 0 04/21/2024 * Follow Up: a s scheduled, February 26 (Reason: OV, Regular check-up) * Images: * Sign off status: Completed true * Provider: Maria Carter MD Date: 0 04/21/2024 Generated for Ravindra petersen/Sonya/Revaitting on: 1 08:48 AM EDT History and Physical Notes * HPI (History of Present Illness) Category Sub-Category Detail Notes Telehealth Location of [facility] rendering services:: {...} [address] [facility] [address] Location of patient:: address listed in demographics for today's visit Patient identification confirmed using:: Name, Telehealth method:: Telephone only. Chely ent not visible to care provider. Consent:: Patient verbally c onsented to treatment, Patient verbally consented to billing insurance company, Patient informed of any privacy concerns related to method of visit Total time spent with patient (mins): 15
--- OUTSIDE RECORDS SUMMARY | 2024-04-29 10:45 | XMS_ITS ---
Author Organization Wally Carter III, MD Address [address] [place] [address] Care Team Providers Care Wildlife Management Professor Name Role Phone Dr. Wally Carter III [...] Date Provider Diagnosis Wally Carter III, MD [address] [place] [address] [place] [phone] 04/29/2024 Wally Carter Other and unspecifie d hyperlipidemia E78.5 ; Coronary artery disease of [place] artery of [place] heart with stable angina pectoris I25.118 ; [...] needed today. 04/29/2024 Coronary artery disease of [place] artery of [place] heart with stable angina pectoris (ICD-10 - [...] atrial fibrillation recently. He spoke to the electrician ship who ordered a Holter monitor and gave [...] Months, Reason: OV Provider Name:Wally Carter , 12/29/2024 09:45:00 AM, [address] [place] [address] [address], [place], [address], Provider Name:Wally Carter , 09/28/2025 09:30:00 AM, [address] [place] [address] [address], [place], [address], Progress Notes * Derek BOYEROB:1950 (74 yo M)Acc No.[id number]:04/29/2024 Progress Notes Patient: Anselmo Darinel BENSON Provider: Maria Carter MD :1950 A ge:74 Y S ex:Male Date:04/29/2024 Address[facility] Subjective: * Chief Complaints: * R ecent [...] the lower area.He had a colonoscopy at [facility] January 14, 2024 that showed a [...] catheterization and angioplasty with a stent LAD, [facility] 09/2019endoscopy and colonoscopy at [facility] 01/2024No history * Hospitalization/Major Diagno stic Procedure: [...] Payal 14 years. He was born in [place]. They have 3 children. 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 He stopped smoking over 20 years [...] Assessment: 1. C oronary artery disease of [place] artery of [place] heart with stable angina pectoris - I25.118 (Primary) N otes :He was admitted to [facility] last weekend for anginal chest pain. A [...] atrial fibrillation recently. He spoke to the electrician ship who ordered a Holter monitor and gave [...] 0 04/29/2024 Generated for Ravindra petersen/Sonya/Revaitting on: 1 08:46 AM EDT History and Physical Notes * [...]
--- OUTSIDE RECORDS SUMMARY | 2024-05-06 11:29 | XMS_ITS ---
Author Organization Wally Carter III, MD Address [address] [place] [address] [place] [address] Care Team Providers Care Mechanical Intern Name Role Phone Dr. Wally Carter III [...] Date Provider Diagnosis Wally Carter III, MD [address] [place] [address] [place] [address] 05/06/2024 Wally Carter Plan Of Treatment Medication Medication Name Sig Start Date Stop Date Notes Xarelto 20 MG 1 tablet with food O rally Once a day for 30 days 05/06/2024 Next Appt Details Provider Name:Wally Lynn Raul , 12/29/2024 09:45:00 AM, [address] [facility] [address], [place], [address], Provider Name:Wally Jainne , 09/28/2025 09:30:00 AM, [address] [facility] [address], [place], [address], Progress Notes * Derek HERNADEZOB:1950 (74 yo M)Acc No.[id number]:05/06/2024 Patient: Anselmo Darinel BENSON :1950 A ge:74 Y S ex:Male Address:[facility] [place] [address] * Refills Start Xarelto Tablet, 20 MG, Orally, 30, 1 tablet with food, Once a day, 30 days, Refills=11 * true * Date: Generated for Ravindra petersen/Sonya/Michealsmitting on: 1 08:47 AM EDT
--- OUTSIDE RECORDS SUMMARY | 2024-07-27 06:45 | XMS_ITS ---
Author Organization Wally Carter III, MD Address [address] [place] [address] Care Team Providers Care Junior Account Executive Name Role Phone Dr. Wally Carter III Primary Care Provider [phone] Allergies Allergen (clinical drug ingredient) Drug/Non Drug [...] Date Provider Diagnosis Wally Carter III, MD [address] [place] [address] [address] [place], [place] [address] 07/27/2024 Wally Carter Other and unspecifie d hyperlipidemia E78.5 ; Coronary artery disease of redding artery of redding heart with stable angina pectoris I25.118 ; [...] made today. 07/27/2024 Coronary artery disease of redding artery of redding heart with stable angina pectoris (ICD-10 - I25.118) He was admitted to last weekend for anginal chest pain. 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 07/27/2024 GERD (gastroesophageal [...] exam review labs Provider Name:Wally Carter , 12/29/2024 09:45:00 AM, [address] [place] [address] [address], [place], [phone], Provider Name:Wally Carter , 09/28/2025 09:30:00 AM, [address] [place] [address] [address], [place], [address], Progress Notes * Herman BOYERKelsieOB:1950 (74 yo M)Acc No.[id number]:07/27/2024 Progress Notes Patient: Darinel FAM Provider: Maria Carter MD :1950 A ge:74 Y S ex:Male Date:07/27/2024 Address:[address] [place], [place] [id number] Subjective: * Chief Complaints: * C oronary [...] catheterization and angioplasty with a stent LAD, 09/2019endoscopy and colonoscopy at [facility] 01/2024No history * Hospitalization/Major Diagno stic Procedure: [...] Payal 14 years. He was born in [place]. They have 3 children. 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 He stopped smoking over 20 years [...] Assessment: 1. C oronary artery disease of redding artery of redding heart with stable angina pectoris - I25.118 (Primary) N otes :He was admitted to last weekend for anginal chest pain. 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 5 . G [...] 07/27/2024 Generated for Ravindra petersen/Sonya/Revaitting on: 1 08:47 AM EDT History and Physical Notes * [...]
--- OUTSIDE RECORDS SUMMARY | 2024-07-28 10:19 | XMS_ITS ---
Author Organization Wally Carter III, MD Address [address] [place] [address] Care Team Providers Care Municipal Bond Trader Name Role Phone Dr. Wally Carter III Primary Care Provider REASON FOR VISIT Message Social History Sex Assigned At : Social History Observation Description Sex Assigned At Male Encounters Encounter Location Date Provider Diagnosis Wally Carter III, MD [address] [place] [address] [place] [address] 07/28/2024 Wally Carter Plan Of Treatment Next Appt Details Provider Name:Wally Carter , 12/29/2024 09:45:00 AM, [address] [place] [address] [place], [address], Provider Name:aWlly Carter , 09/28/2025 09:30:00 AM, [address] [place] [address] [address], [place], [address], Progress Notes * Derek HERNADEZOB:1950 (74 yo M)Acc No.[id number]:07/28/2024 Patient: Herman FAMne :1950 A ge:74 Y S ex:Male Address:[address] [place] [address] * true * Date: Generated for Ravindra petersen/Sonya/Michealsmitting on: 08:49 AM EDT
--- OUTSIDE RECORDS SUMMARY | 2024-09-25 05:30 | XMS_ITS ---
Author Organization Wally Carter III, MD Address [address] [address] Care Team Providers Care Manager Support Name Role Phone Dr. Wally Carter III [...] Provider Diagnosis Wally Carter III, MD [address] [place] [address] [place] [address] 09/25/2024 Wally Carter Other and unspecifie d hyperlipidemia E78.5 ; Coronary artery disease of [place] artery of [place] heart with stable angina pectoris I25.118 ; [...] made today. 09/25/2024 Coronary artery disease of [place] artery of [place] heart with stable angina pectoris (ICD-10 - I25.118) He was admitted to [facility] last weekend for anginal chest pain. [...] the company that supplies it and his prosthetist for more comfortable device. 09/25/2024 GERD (gastroesophageal [...] Name:Wally Carter , 12/29/2024 09:45:00 AM, [address] [place] [address] [address], [place], [address], Provider Name:Wally Carter , 09/28/2025 09:30:00 AM, [address] [place] [address] [address], [place], [address], Progress Notes * Herman HERNADEZKelsieOB:1950 (74 yo M)Acc No.[id number]:09/25/2024 Progress Notes Patient: Anselmo BENSON Darinel Provider: Maria Carter MD :1950 A ge:74 Y S ex:Male Date:09/25/2024 Address:[address] [place], [place] [id number] Subjective: * Chief Complaints: * A nnual [...] catheterization and angioplasty with a stent LAD, [facility] 09/2019endoscopy and colonoscopy at [facility] 01/2024No history * Hospitalization/Major Diagno stic Procedure: [...] [place] 14 years. He was born in [place]. They have 3 children. 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 He stopped smoking over 20 years [...] Assessment: 1. 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 [...] the company that supplies it and his prosthetist for more comfortable device. 5 . G [...] MD Date: 0 09/25/2024 Generated for Jeradi nicola/Chaitanyag/eTransmitting on: 1 08:47 AM EDT History and [...]
--- OUTSIDE RECORDS SUMMARY | 2024-10-02 05:15 | XMS_ITS ---
Author Organization Wally Carter III, MD Address [address] [place] [address] Care Team Providers Care Bronc Breaker Name Role Phone Dr. Wally Carter III [...] Date Provider Diagnosis Wally Carter III, MD [address] [place] [address] [place] [address] 10/02/2024 Wally Carter Other and unspecifie d hyperlipidemia E78.5 ; Coronary artery disease of [place] artery of [place] heart with stable angina pectoris I25.118 ; [...] made today. 10/02/2024 Coronary artery disease of [place] artery of [place] heart with stable angina pectoris (ICD-10 - I25.118) He wishes to remain off of the amlodipine which was given to him by the manager compensation. His blood pressure today is adequate. Will be followed closely until he sees manager compensation. 10/02/2024 Obesity (ICD-10 - E66.9) He has [...] the company that supplies it and his station attendant for more comfortable device. 10/02/2024 GERD (gastroesophageal reflux disease) (ICD-10 - K21.9) His reflux is well controlled with current medications. 10/02/2024 Paroxysmal atrial fibrillation (ICD-10 - I48.0) He remaiins anticoagulated. He is compliant with his medications. He has had paroxysms of atrial fibrillation recently. He spoke to the manager compensation who ordered a Holter monitor and gave [...] W, Reason: OV Provider Name:Wally Carter , 12/29/2024 09:45:00 AM, [address] [place] [address] [address], [place], [address], Provider Name:Wally Carter , 09/28/2025 09:30:00 AM, [address] [place] [address] [address], [place], [address], Progress Notes * Derek BOYEROB:1950 (74 yo M)Acc No.[id number]:10/02/2024 Progress Notes Patient: Darinel FAM Provider: Maria Carter MD :1950 A ge:74 Y S ex:Male Date:10/02/2024 [facility] Subjective: * Chief Complaints: * D izzinessCoronary [...] him to discuss this issue with the manager compensation. Questions H ave you had any new [...] catheterization and angioplasty with a stent LAD, [facility] 09/2019endoscopy and colonoscopy at [facility] 01/2024No history * Hospitalization/Major [...] Payal 14 years. He was born in [place]. They have 3 children. 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 He stopped smoking over 20 years ago. [...] Assessment: 1. C oronary artery disease of [place] artery of [place] heart with stable angina pectoris - I25.118 (Primary) N otes :He wishes to remain off of the amlodipine which was given to him by the manager compensation. His blood pressure today is adequate. Will be followed closely until he sees manager compensation. 2 . O ther and unspecified hyperlipidemia [...] the company that supplies it and his station attendant for more comfortable device. 6 . G ERD (gastroesophageal reflux disease) - K21.9 N otes :His reflux is well controlled with current medications. 7 . P aroxysmal atrial fibrillation - I48.0 N otes :He remaiins anticoagulated. He is compliant with his medications. He has had paroxysms of atrial fibrillation recently. He spoke to the manager compensation who ordered a Holter monitor and gave [...] 10/02/2024 Generated for Ravindra petersen/Sonya/Revaitting on: 1 08:48 [...]
--- OUTSIDE RECORDS SUMMARY | 2024-10-16 12:45 | XMS_ITS ---
Author Organization Wally Carter III, MD Address [address] [place] [address] Care Team Providers Care Tool Design Engineer Name Role Phone Dr. Wally Carter III Primary Care Provider [phone] Allergies Allergen (clinical drug ingredient) Drug/Non Drug [...] Provider Diagnosis Wally Carter III, MD [address] [place] [address] 10/16/2024 Wally Carter Other and unspecifie d [...] Provider Name:Wally Carter , 12/29/2024 09:45:00 AM, [address] [place], [address], Provider Name:Wally Carter , 09/28/2025 09:30:00 AM, [address] [facility] [facility] [place], [address], Progress Notes * Devin HERNADEZ:1950 (74 yo M)Acc No.[id number]:10/16/2024 Progress Notes Patient: Darinel FAM Provider: Maria Carter MD :1950 A ge:74 Y S ex:Male Date:10/16/2024 [facility] Subjective: * Chief Complaints: * 1 . [...] flu symptoms, Adenomatous polyp hepatic flexure colonoscopy, [facility] 2023. * Surgical History: r esection of lipoma , renal biopsy , fracture right thumb , colonoscopy, Dr. Bacon, adenomatous polyp transverse colon, Gastritis and adenomatous polyp hepatic flexure 2001, crush injury right third finger at work 2011, COLONOSCOPY 2012, Right knee miniscus surgery 02/2015, [facility], L45 disc decomression 06/2016, Cardiac catheterization and angioplasty with a stent LAD, [facility] 09/2019, endoscopy and colonoscopy at [facility] 01/2024, No history . * Hospitalization/Major Diagno [...] Payal 14 years. He was born in [place]. They have 3 children. 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 He stopped smoking over 20 years ago. [...] Carter MD Date: 0 10/16/2024 Generated for Jeradi nicola/Sonya/James on: 08:48 AM EDT History and Physical Notes [...]
--- OUTSIDE RECORDS SUMMARY | 2024-11-06 05:00 | XMS_ITS ---
Author Organization Wally Carter III, MD Address [address] [place] [address] Care Team Providers Care Supervisor Malt House Name Role Phone Dr. Wally Carter III [...] Date Provider Diagnosis Wally Carter III, MD [address] [place] [address] [place] [address] 11/06/2024 Wally Carter Obesity E66.9 ; Li nary artery disease of [place] artery of [place] heart with stable angina pectoris I25.118 ; [...] per week. 11/06/2024 Coronary artery disease of [place] artery of [place] heart with stable angina pectoris (ICD-10 - I25.118) He wishes to remain off of the amlodipine which was given to him by the department head college or university. His blood pressure today is adequate. Will be followed closely until he sees department head college or university. 11/06/2024 Former smoker (ICD-1 0 - Z87.891) [...] the company that supplies it and his combustion analyst for more comfortable device. 11/06/2024 GERD (gastroesophageal [...] atrial fibrillation recently. He spoke to the department head college or university who ordered a Holter monitor and gave [...] Provider Name:Wally Carter , 12/29/2024 09:45:00 AM, [address] [place] [address] [address], [place], [address], Provider Name:Wally Carter , 09/28/2025 09:30:00 AM, [address] [place] [address] [address], [place], [address], Progress Notes * Herman HERNADEZKelsieOB:1950 (74 yo M)Acc No.[id number]:11/06/2024 Progress Notes Patient: Darinel FAM Provider: Maria Carter MD :1950 A ge:74 Y S ex:Male Date:11/06/2024 Address:[address] [place], [place] [id number] Subjective: * Chief Complaints: * H ypertensionHyperlipidemiqaGerdObesityAllergies [...] catheterization and angioplasty with a stent LAD, [facility] 09/2019endoscopy and colonoscopy at [facility] 01/2024No history * Hospitalization/Major Diagno stic [...] Payal 14 years. He was born in [place]. They have 3 children. 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 He stopped smoking over 20 years [...] Assessment: 1. 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 His blood pressure today is adequate. Will be followed closely until he sees department head college or university. 2 . O besity - E66.9 N [...] the company that supplies it and his combustion analyst for more comfortable device. 6 . G [...] atrial fibrillation recently. He spoke to the department head college or university who ordered a Holter monitor and gave [...] 11/06/2024 Generated for Jeradi nicola/Sonya/eTransmitting on: 1 08:49 AM EDT History and Physical Notes * [...]
--- OUTSIDE RECORDS SUMMARY | 2024-12-26 08:46 | XMS_ITS | Encounter Summary ---
Author Organization [facility] Address [address] [place] [address] Care Team Providers Care Manager Asset Management Name Role Phone Wally Carter MD Primary Care Provider Warren Plummer MD Unavailable [phone] Ashley Yañez NP Unavailable Encounter Details Date Type Department Care Team Description 04/03/2018 Orders Only Pulmonology - [address] [place] [id number] John Campbell MD Obstructive sleep apnea; Allergic rhinitis, unspecified seasonality, unspecified trigger; Pneumonia of left lower lobe due to Klebsiella pneumoniae (HCC) Social History Tobacco Use Types Packs/Day Years [...] Procedure Name Priority Date/Time Associated Diagnosis Comments CAT SCAN OF CHEST NO CONTRAST Routine 02/21/2018 Obstructive sleep apnea Allergic rhinitis, unspecified seasonality, unspecified trigger Pneumonia of left lower lobe due to Klebsiella pneumoniae (HCC) documented in this encounter Results * CAT SCAN OF CHEST NO CONTRAST (02/21/2018) John Campbell MD CT SCANS documented in this encounter Visit Diagnoses Diagnosis Obstructive sleep apnea Obstructive sleep apnea (adult) (pediatric) Allergic rhinitis, unspecified seasonality, unspecified trigger Pneumonia of left lower lobe due to Klebsiella pneumoniae (HCC) documented in this encounter Care Teams Manager Asset Management Relationship Specialty Start Date End Date Wally Carter MD PCP - General Oncology/Hematology 05/16/17 Warren Reyes MD [address] [place] [address] [address] [place] [address] Smocker Cardiovascular Disease 11/07/17 Ashley Yañez NP [address] [place] [address] DR[address] [place] [address] Specialist Cardiology 12/12/20 documented as of this encounter
--- OUTSIDE RECORDS SUMMARY | 2024-12-26 08:46 | XMS_ITS | Encounter Summary ---
Author Organization [facility] Address [address] [place] [address] Care Team Providers Care Manager Public Name Role Phone Wally Carter MD Primary Care Provider Warren Plummer MD Unavailable [phone] Ashley Yañez NP Unavailable [phone] Encounter Details Date Type Department Care Team Description 10/11/2019 SCAN Medical Records [address] [place] [address] [place] Marino Social History Tobacco Use Types Packs/Day Years [...] Name Priority Date/Time Associated Diagnosis Comments OUTSIDE ECHO Routine 10/11/2019 documented in this encounter Results * OUTSIDE ECHO (10/11/2019) Provider Default CARDIOLOGY documented in this encounter Visit Diagnoses Not on filedocumented in this encounter Care Teams Manager Public Relationship Specialty Start Date End Date Wally Carter MD PCP - General Oncology/Hematology 05/16/17 Warren Reyes MD [address] [place] [address] [address] [place] [address] Manual Machinist Cardiovascular Disease 11/07/17 Ashley Yañez, MARY LOU [address] [place] [address] [address] [place] [address] Specialist Cardiology 12/12/20 documented as of this encounter
--- OUTSIDE RECORDS SUMMARY | 2024-12-26 08:46 | XMS_ITS | Encounter Summary ---
Author Organization [facility] Address [address] [place] [address] Care Team Providers Care Associate Quality Engineer Name Role Phone Wally Carter MD Primary Care Provider Warren Plummer MD Unavailable [phone] Ashley Yañez NP Unavailable [phone] Encounter Details Date Type Department Care Team Description 05/11/2019 Databases Computer Consultant Report Medical Records [address] [place] [address] Sherrie Oropeza PA-C [address] [place] [address] Social History Tobacco Use Types Packs/Day Years [...] on filedocumented in this encounter Care Teams Associate Quality Engineer Relationship Specialty Start Date End Date Wally Carter MD PCP - General Oncology/Hematology 05/16/17 Warren Reyes MD [address] [place] [address] [place] [phone] Print Buyer Cardiovascular Disease 11/07/17 Ashley Yañez NP [address] [place] [address] [address] [place] [address] Specialist Cardiology 12/12/20 documented as of this encounter
--- OUTSIDE RECORDS SUMMARY | 2024-12-26 08:46 | XMS_ITS | Encounter Summary ---
Author Organization [facility] Address [address] [place] [address] Care Team Providers Care Rough And Truing Machine Operator Name Role Phone Wally Carter MD Primary Care Provider Warren Plummer MD Unavailable [phone] Ashley Yañez NP Unavailable [phone] Encounter Details Date Type Department Care Team Description 10/09/2019 SCAN Medical Records [address] [place] [address] Yao Isidro MD [address] [place] [address] [address] [place] [address] Social History Tobacco Use Types Packs/Day Years [...] Name Priority Date/Time Associated Diagnosis Comments OUTSIDE CARDIAC CATH Routine 10/09/2019 documented in this encounter Results * OUTSIDE CARDIAC CATH (10/09/2019) Provider Default CARDIOLOGY documented in this encounter Visit Diagnoses Not on filedocumented in this encounter Care Teams Rough And Truing Machine Operator Relationship Specialty Start Date End Date Wally Carter MD PCP - General Oncology/Hematology 05/16/17 Warren Reyes MD [address] [place] [address] School Community Relations Coordinator Cardiovascular Disease 11/07/17 Ashley Yañez NP [address] [place] [address] [address]IVE [address] [place] [address] Specialist Cardiology 12/12/20 documented as of this encounter
--- OUTSIDE RECORDS SUMMARY | 2024-12-26 08:46 | XMS_ITS | Patient Health Record ---
Author Organization [facility] Address [address] [facility] [address] [facility] [address] [place] [address] Care Team Providers Care Professor Of Geology Name Role Phone Wally Carter Primary Care [...] Date Coverage End Date [employer] [address] [address] [place] [address] [id number] Darinel Boyer Self - patient is the insured Medical (General) History Medical History History ICD Code Pulmonary nodule Pneumonia Obstructive sleep apnea Allergic rhinitis Hyperlipidemia Atrial fibrillation Degenerative disease of the lumbar spine Coronary Artery Disease Surgical History Surgery Date(Month/Year) Historical lumbar spine surgery Historical Cardiac stent
--- OUTSIDE RECORDS SUMMARY | 2024-12-26 08:46 | XMS_ITS | Encounter Summary ---
Author Organization [facility] Address [address] [place] [address] Care Team Providers Care Hospice Office Coordinator Name Role Phone Wally Carter MD Primary Care Provider Warren Plummer MD Unavailable [phone] Ashley Yañez NP Unavailable Encounter Details Date Type Department Care Team Description 02/21/2018 SCAN Medical Records [address] [place] [address] Roby Keita MD [address] [place] [address] Social History Tobacco Use Types Packs/Day Years [...] Name Priority Date/Time Associated Diagnosis Comments OUTSIDE HOLTER MONITOR Routine 02/21/2018 documented in this encounter Results * OUTSIDE HOLTER MONITOR (02/21/2018) Provider Default CARDIOLOGY documented in this encounter Visit Diagnoses Not on filedocumented in this encounter Care Teams Hospice Office Coordinator Relationship Specialty Start Date End Date Walyl Carter MD PCP - General Oncology/Hematology 05/16/17 Warren Reyes MD [address] [place] [address] [place] [address] [place] [address] Director Community Organization Cardiovascular Disease 11/07/17 Ashley Yañez NP [address] [place] [address] DRIVE [address] [place] [address] Specialist Cardiology 12/12/20 documented as of this encounter
--- OUTSIDE RECORDS SUMMARY | 2024-12-26 08:47 | XMS_ITS | Encounter Summary ---
Author Organization [facility] Address [address] [place] [address] Care Team Providers Care Cutter And Paster Press Clippings Name Role Phone Wally Carter MD Primary Care Provider Warren Plummer MD Unavailable [phone] Ashley Yañez NP Unavailable [phone] Encounter Details Date Type Department Care Team Description 06/21/2017 SCAN Medical Records [address] [place] [address] Ron Castro MD Social History Tobacco Use [...] on filedocumented in this encounter Care Teams Cutter And Paster Press Clippings Relationship Specialty Start Date End Date Wally Carter MD PCP - General Oncology/Hematology 05/16/17 Warren Reyes MD [address] [place] [address] [address] [place] [address] Digital Advisor Cardiovascular Disease 11/07/17 Ashley Yañez, MARY LOU [address] [place] [address] [address] [place] [address] Specialist Cardiology 12/12/20 documented as of this encounter
--- OUTSIDE RECORDS SUMMARY | 2024-12-26 08:47 | XMS_ITS | Encounter Summary ---
Author Organization [facility] Address [address] [place] [address] Care Team Providers Care Water Pollution Control Inspector Name Role Phone Wally Carter MD Primary Care Provider Warren Plummer MD Unavailable [phone] Ashley Yañez NP Unavailable [phone] Encounter Details Date Type Department Care Team Description 04/25/2023 SCAN Medical Records [address] [place] [address] Ashley Yañez NP [address] [place] [address] [phone] Social History Tobacco Use Types Packs/Day Years [...] on filedocumented in this encounter Care Teams Water Pollution Control Inspector Relationship Specialty Start Date End Date Wally Carter MD PCP - General Oncology/Hematology 05/16/17 Warren Reyes MD [address] [place] [address] [place] [address] [phone] Cop Cardiovascular Disease 11/07/17 Ashley Yañez, MARY LOU [address] [place] [address] Specialist Cardiology 12/12/20 documented as of this encounter
--- OUTSIDE RECORDS SUMMARY | 2024-12-26 08:47 | XMS_ITS | Encounter Summary ---
Author Organization [facility] Address [address] [place] [address] Care Team Providers Care Journeyman Sheet Metal Worker Name Role Phone Wally Carter MD Primary Care Provider Warren Plummer MD Unavailable [phone] Ashley Yañez NP Unavailable [phone] Encounter Details Date Type Department Care Team Description 07/27/2023 Hospital Medical Records [address] [place] [address] Social History Tobacco Use Types Packs/Day Years [...] Name Priority Date/Time Associated Diagnosis Comments OUTSIDE EKG Routine 07/27/2023 OUTSIDE PLAIN FILM Routine 07/27/2023 OUTSIDE LAB Routine 07/27/2023 documented in this encounter Results * OUTSIDE PLAIN FILM (07/27/2023) Provider Default RADIOLOGY * OUTSIDE LAB (07/27/2023) Provider Default LAB * OUTSIDE EKG (07/27/2023) Provider Default CARDIOLOGY documented in this encounter Visit Diagnoses Not on filedocumented in this encounter Care Teams Journeyman Sheet Metal Worker Relationship Specialty Start Date End Date Wally Carter MD PCP - General Oncology/Hematology 05/16/17 Warren Reyes MD [address] [place] [address] [address] [place] [address] Couturiere Cardiovascular Disease 11/07/17 Ashley Yañez NP [address] [place] [address] [address] [place] [address] Specialist Cardiology 12/12/20 documented as of this encounter
--- OUTSIDE RECORDS SUMMARY | 2024-12-26 08:47 | XMS_ITS | Encounter Summary ---
Author Organization [facility] Address [address] [place] [address] Care Team Providers Care Supervisor Packing Name Role Phone Wally Carter MD Primary Care Provider Warren Plummer MD Unavailable [phone] Ashley Yañez NP Unavailable [phone] Encounter Details Date Type Department Care Team Description 03/02/2020 SCAN Medical Records [address] [place] [id number] Wally Carter MD Social History Tobacco Use [...] Date/Time Associated Diagnosis Comments OUTSIDE LAB Routine 03/02/2020 OUTSIDE LAB Routine 03/02/2020 documented in this encounter Results * OUTSIDE LAB (03/02/2020) Provider Default LAB * OUTSIDE LAB (03/02/2020) Provider Default LAB documented in this encounter Visit Diagnoses Not on filedocumented in this encounter Care Teams Supervisor Packing Relationship Specialty Start Date End Date Wally Carter MD PCP - General Oncology/Hematology 05/16/17 Warren Reyes MD [address] [place] [address] Dtp Operator Cardiovascular Disease 11/07/17 Ashley Yañez NP [address] [place] [address] [place] [address] Specialist Cardiology 12/12/20 documented as of this encounter
--- OUTSIDE RECORDS SUMMARY | 2024-12-26 08:47 | XMS_ITS | Encounter Summary ---
Author Organization [facility] Address [address] [place] [address] Care Team Providers Care Derrick Boat Leverman Name Role Phone Wally Carter MD Primary Care Provider Warren Plummer MD Unavailable [phone] Ashley Yañez NP Unavailable [phone] Encounter Details Date Type Department Care Team Description 05/06/2023 SCAN Medical Records [address] [place] [id number] Abstract, Provider Social History Tobacco Use Types [...] on filedocumented in this encounter Care Teams Derrick Boat Leverman Relationship Specialty Start Date End Date Wally Carter MD PCP - General Oncology/Hematology 05/16/17 Warren Reyes MD [address] [place] [address] [place] [address] [phone] Lbd Teacher Cardiovascular Disease 11/07/17 Ashley Yañez NP [address] [place] [address] [place] [address] [phone] Specialist Cardiology 12/12/20 documented as of this encounter
--- OUTSIDE RECORDS SUMMARY | 2024-12-26 08:47 | XMS_ITS | Clinical Summary ---
Author Organization [facility] Address [address] [place] [phone] Phone Care Team Providers Care Behavioral Instructor Name Role Phone Wally Carter MD Primary Care Provider [phone] Allergies Active Allergy Reactions Criticality Noted Date Comments Latex Rash Low 01/08/2024 Medications clopidogrel (PLAVIX) 75 mg tablet Take 75 mg by mouth daily. Active rivaroxaban (XARELTO) 20 mg Tab Take 10 mg by mouth daily. Active amLODIPine (NORVASC) 5 MG tablet Take 5 mg by mouth daily. Active atorvastatin (LIPITOR) 80 MG tablet Take 80 mg by mouth daily. Active mometasone (NASONEX) 50 mcg/actuation nasal spray 2 sprays by Nasal route daily as needed. Active Social History Tobacco Use Types Packs/Day Years Used Date Smoking Tobacco: Former Cigarettes Q uit: 1985 Tobacco Cessation:Counseling Given: Not Answered Alcohol Use Standard Drinks/Week Comments Yes 2 (1 standard drink = 0.6 oz pur e alcohol) Education Answer Date Recorded Are you interested in more education? Not on donnie e 11/21/2023 Are you concerned about learning? Not on file 11/21/2023 No 11/21/2023 No 11/21/2023 Digital Access Answer Date Recorded No 11/21/2023 No 11/21/2023 Reliable internet access at home? Not on file 11/21/2023 Device with a working camera? Not on file Intimate Partner Violence Answer Date R ecorded Are you denied basic needs s uch as food, clothing, or medical care? No 01/08/2024 In the past 12 months have y ou been in a relationship with a person who hurts, threatens, or tries to control you? No 01/08/2024 Are you denied basic needs s uch as food, clothing, or medical care? No 01/08/2024 In the past 12 months have y ou been in a relationship with a person who hurts, threatens, or tries to control you? No 01/08/2024 Sex and Gender Information Value Date Recorded Sex Assigned at Not on file Legal Sex Male 10:00 PM EDT Gender Identity Not on file Sexual Orientation Not on file Last Filed Vital Signs Vital Sign Reading Time Taken Comments Blood Pressure 120/66 01/14/2024 8:45 AM EST Pulse 56 01/14/2024 8:45 AM EST Temperature 36 C (96.8 F) 01/14/2024 8:35 AM EST Respiratory Rate 15 01/14/2024 8:45 AM EST Oxygen Saturation 97% 01/14/2024 8:45 AM EST Inhaled Oxygen Concentration - - Weight 99.8 kg (220 lb) 01/08/2024 2:57 PM EDT Height 170.2 cm (5' 7 ) 01/08/2024 2:57 PM EDT Body Mass Index 34.46 01/08/2024 2:57 PM EDT Plan of Treatment Health Maintenance Due Date Last Done Comments CREATININE LEVEL 1950 LIPID PANEL 1950 DEPRESSION SCREENING 1963 SMOKING Hx and SMOKELESS TOBACCO SCREENING 1964 HEPATITIS C SCREENING 1969 COLOGUARD 1996 FIT TEST 1996 FOBT 1996 SIGMOIDOSCOPY 1996 VIRTUAL COLONOSCOPY 1996 PNEUMOCOCCAL VACCINES (50+ years) (1 of 1 - PCV) 2001 ZOSTER VACCINES (1 of 2) 2001 ABDOMINAL AORTIC ANEURYSM (AAA) SCREENING 2016 INFLUENZA VACCINE (#1) 2024 , 12/14/2022, 12/22/2021, Additional history exists COVID-19 VACCINE (2024- season) 2024 11/19/2023, 12/22/2022, 12/24/2021, Additional history exists RSV VACCINE (1 - 1-dose 75+ series) 2026 Adult Td,Tdap Booster 10/14/2031 10/13/2021 COLONOSCOPY 01/13/2034 01/14/2024 COLORECTAL CANCER SCREENING 01/13/2034 HEPATITIS A VACCINES Aged Out No long er eligible based on patient's age to complete this topic HIB VACCINES Aged Out No longer eligi ble based on patient's age to complete this topic MENINGOCOCCAL VACCINES (ACWY) Aged Out No longer eligible based on patient's age to complete this topic MENINGOCOCCAL VACCINES (B) Aged Out N o longer eligible based on patient's age to complete this topic Medical Devices Implanted Type Area Hand Reamer Device Identifier Shelf Expiration Date Model / Serial / Lot Lad Stent Procedures Procedure Name Priority Date/Time Associated Diagnosis Comments ENDOSCOPY, COLON 01/14/2024 7:34 AM EST from Last 3 Months or Most Recently Relevant to Health Maintenance Results * ENDOSCOPY, COLON (01/14/2024 7:34 AM EST) Narrative Transcriptions Benjie Henry MD - 01/14/2024 7:34 AM EST [facility] Patient Name: Darinel Thackerquang Attending MD:: BENJIE HENRY MD, Procedure Date: 01/14/2024 7:34 AM Date of : 1950 Age: 73 Admit Type: Outpatient Gender: Male Room: [place] [address] Referring MD: Wally Carter MD Exam Type: Colonoscopy Indications: High risk colon cancer surveillance: Personalhistory of colonic polyps Medications: Monitored Anesthesia Care Procedure: Informed consent was obtained from the patientafter discussion of the indications, limitations, alternatives, benefits, and risks of the procedure. Risks specifically discussed include but are not limited to medication reactions, missed lesions, bleeding, perforation, or the need for emergent surgery. Throughout the procedure, the patient's blood pressure, pulse, end-tidal CO2, and oxygensaturations were monitored continuously. The Olympus adult variable colonoscope [id number] #1 was introduced through the anus and advanced to the terminal ileum, with identification of theappendiceal orifice and IC valve. The colonoscopy was performed without difficulty. The patient tolerated the procedure well. The quality of the bowelpreparation was good. The terminal ileum, ileocecal valve, appendiceal orifice, and rectum werephotographed. Complications: No immediate complications. Estimated blood loss:None. Findings: The terminal ileum appeared normal. Examination of the right colon was repeated in retroflexion and again in NBI. Retroflexion wasalso performed in the rectum. Multiple diverticula were found in the sigmoidcolon. A 2 mm polyp was found in the cecum. The polyp was sessile. The polyp was removed with a cold biopsy forceps. Resection and retrieval were complete. A 7 mm polyp was found in the hepatic flexure. The polyp was sessile. The polyp was removed with acold snare. Resection and retrieval were complete. A 2 mm polyp was found in the transverse colon. The polyp was sessile. The polyp was removed with acold biopsy forceps. Resection and retrieval werecomplete. A 7 mm polyp was found in the transverse colon. The polyp was sessile. The polyp was removed with acold snare. Resection and retrieval were complete. A 5 mm polyp was found in the descending colon. The polyp was sessile. The polyp was removed with acold snare. Resection and retrieval were complete. Internal hemorrhoids were found duringretroflexion. The hemorrhoids were moderate. The exam was otherwise without abnormality. Impression: - The examined portion of the ileum was normal. - Diverticulosis in the sigmoid colon. - One 2 mm polyp in the cecum, removed with a cold biopsy forceps. Resected and retrieved. - One 7 mm polyp at the hepatic flexure, removedwith a cold snare. Resected and retrieved. - One 2 mm polyp in the transverse colon, removedwith a cold biopsy forceps. Resected and retrieved. - One 7 mm polyp in the transverse colon, removedwith a cold snare. Resected and retrieved. - One 5 mm polyp in the descending colon, removedwith a cold snare. Resected and retrieved. - Internal hemorrhoids. - The examination was otherwise normal. Recommendation: - Patient has a contact number available for emergencies. The signs and symptoms of potential delayed complications were discussed with thepatient. Return to normal activities tomorrow. Written discharge instructions were provided to thepatient. - Await pathology results. - Repeat colonoscopy for surveillance based on pathology results. Benjie Henry BENJIE HENRY MD 01/14/2024 8:36:23 AM This report has been signed electronically. Number of Addenda: 0 Note Initiated On: 01/14/2024 7:34 AM Procedure Code(s): --- Professional --- 10730, Colonoscopy, flexible; with removal of tumor(s), polyp(s), or other lesion(s) by snare technique 38760, 59, Colonoscopy, flexible; with biopsy, single or multiple --- Technical --- 73919, Colonoscopy, flexible; with removal of tumor(s), polyp(s), or other lesion(s) by snare technique [id number], 59, Colonoscopy, flexible; with biopsy, single or multiple CPT copyright 2021 [employer]. All rights reserved. The codes documented in this report are preliminary and upon electrical and instrumentation manager reviewmay be revised to meet current compliance requirements. Procedure Date: 01/14/2024 7:34:[address] [place] [id number] Wally Carter MD GI PROCEDURE ORDERABLES Fi nal Result from Last 3 Months or Most Recently Relevant to Health Maintenance Insurance MEDICARE PART A & B [employer] MEDEX SUPPLEMENT MEDICARE PART A & B [employer] MEDEX SUPPLEMENT MEDICARE PART A & B [facility] MEDEX SUPPLEMENT MEDICARE PART A & B [employer] MEDEX SUPPLEMENT MEDICARE PART A & B [employer] MEDEX SUPPLEMENT MEDICARE PART A & B [employer] MEDEX SUPPLEMENT Care Teams Behavioral Instructor Relationship Specialty Start Date End Date Wally Carter MD [address] [place] [address] [place] [address] PCP - General Medical Oncology 01/01/24 Additional Source Comments The information contained in this document represents components of the legal health record. It is not the complete legal health record.[facility]
--- OUTSIDE RECORDS SUMMARY | 2024-12-26 08:47 | XMS_ITS | Encounter Summary ---
Author Organization [facility] Address [address] [place] [address] Care Team Providers Care Milking Worker Name Role Phone Wally Carter MD Primary Care Provider Warren Plummer MD Unavailable [phone] Ashley Yañez NP Unavailable [phone] Reason for Visit * Reason Onset Date Comments APPOINTMENT 08/31/2020 recall-appointme nt Encounter Details Date Type Department Care Team Description 08/31/2020 Telephone Cardio PVC POC [address] [facility] [address] [place] [address] Roby Keita MD [address] [place] [address] [phone] APPOINTMENT (recall-appointment) Social History Tobacco Use Types Packs/Day Years [...] encounter Miscellaneous Notes * Telephone Encounter - Tania José Miguel - 08/31/2020 1:09 PM EDT 08/31/2020 LMOM for pt for recall Appointment w/ [facility] or w/ Christina when [facility] is in the office/ Last seen 05/11/2019 w/ LM --(1 year with [facility]- dx: SOB,) DIANE documented in this encounter Plan of Treatment Not on file documented as of this encounter Visit Diagnoses Not on filedocumented in this encounter Care Teams Milking Worker Relationship Specialty Start Date End Date Wally Carter MD PCP - General Oncology/Hematology 05/16/17 Warren Reyes MD [address] [place] [address] [address] [place] [address] Yard Brakeman Cardiovascular Disease 11/07/17 Ashley Yañez NP [address] [place] [address] [address] [place] [address] Specialist Cardiology 12/12/20 documented as of this encounter
--- OUTSIDE RECORDS SUMMARY | 2024-12-26 08:48 | XMS_ITS | Encounter Summary ---
Author Organization [facility] Address [address] [place] [address] Care Team Providers Care Core Carrier Name Role Phone Wally Carter MD Primary Care Provider Warren Plummer MD Unavailable Ashley Yañez NP Unavailable [phone] Reason for Visit * Reason Onset Date Comments DME Request 02/04/2018 cpap Encounter Details Date Type Department Care Team Description 02/04/2018 Telephone Pulmonology - [address] [place] [address] John Campbell MD DME Request (cpap) Social History Tobacco Use Types Packs/Day Years [...] encounter Miscellaneous Notes * Telephone Encounter - Essie Love M.A. - 02/04/2018 4:53 PM EST Faxed replacement cpap order to [facility].script and office notes sent.we do not have sleep study on file.[facility] should have it because got his previous cpap there. documented in this encounter Plan of Treatment Not on file documented as of this encounter Visit Diagnoses Not on filedocumented in this encounter Care Teams Core Carrier Relationship Specialty Start Date End Date Wally Carter MD PCP - General Oncology/Hematology 05/16/17 Warren Reyes MD [address] [place] [address] [address] [place] [address] Insole Tacker Cardiovascular Disease 11/07/17 Ashley Yañez NP [address] [place] [address] [address] [place] [address] Specialist Cardiology 12/12/20 documented as of this encounter
--- OUTSIDE RECORDS SUMMARY | 2024-12-26 08:48 | XMS_ITS | Clinical Summary ---
Author Organization [facility] [employer] [facility] Address [address] [place] [address] Phone Care Team Providers Care Warehouse Insulation Worker Name Role Phone Wally Carter MD Primary Care Provider [phone] Allergies Active Allergy Reactions Criticality Noted Date Comments Latex 05/20/2017 Medications rivaroxaban (Xarelto) 20 mg tablet Take 1 Tablet by mouth daily. 11/25/19 24 Active loratadine/pse udoephedrine (CLARITIN-D 24 HOUR ORAL) Take by mouth as needed. Active dexlansoprazol e (DEXILANT) [address] capsule Take by mouth daily as needed. Active budesonide (RHINOCORT AQ) 32 mcg/actuation nasal spray by Nasal route as needed. Active azelastine (ASTELIN) 137 mcg (0.1 %) nasal spray Administer 1 spray into each nostril 2 (two) times a day. Use in each nostril as directed Active atorvastatin (LIPITOR) 80 mg tablet TAKE 1 TABLET BY MOUTH EVERY DAY 90 tablet 2 10/20/19 25 Active amLODIPine (NORVASC) 5 mg tablet TAKE 1 TABLET BY MOUTH EVERY DAY 90 tablet 1 12/15/19 25 Active clopidogreL (PLAVIX) 75 mg tablet TAKE 1 TABLET BY MOUTH EVERY DAY 90 tablet 3 12/15/19 25 Active clopidogreL (PLAVIX) 75 mg tablet TAKE 1 TABLET BY MOUTH EVERY DAY 90 tablet 3 02/19/20 24 025 Discontinued amLODIPine (NORVASC) 5 mg tablet TAKE 1 TABLET BY MOUTH EVERY DAY 90 tablet 1 07/28/19 25 025 Discontinued Hospital, Clinic, or Other Facility Administered Medication Ordered Dose Route Frequency Start Date End Date Status perflutren lipid microsphere (DEFINITY) 1.3 mL in sodium chloride 0.9% 8.7 mL injection 10 mL IV Once in imaging 12/15/2024 12/15/2024 End ed Active Problems Problem Noted Date Diagnosed Date Atrial fibrillation ([facility] V24, CMS/[facility] V28) 1 Overview (02/05/2024): Assessment & Plan (11/10/2024 12:28 PM EDT): History of atrial fibrillation remains on Xarelto without bleeding issues. Assessment & Plan (02/05/2024 10:34 AM EST): Patient has history of paroxysmal atrial fibrillation and remains on Xarelto for anticoagulation. He is not on beta-julita due to baseline bradycardia. Orders: ECG 12 lead Coronary artery disease 12/12/2020 Overview (02/05/2024): Assessment & Plan (11/10/2024 12:28 PM EDT): . Patient is been experiencing some atypical chest discomfort. Most likely due to reflux and possible Chester's esophagus encouraged him to go on PPI there is a small risk of it losing effectiveness of Plavix but it is a minimal risk given this far out from the stent. He needs to start the PPI to diminish his risk of developing transition from Chester's esophagus to cancer. Patient to be sent for stress echo Orders: Stress echocardiogram (TTE) exercise with PRN contrast, bubble, strain, and 3D order panel; Future Assessment & Plan (02/05/2024 10:34 AM EST): [...] were concerned. 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 We will once again repeat a 24-hour maintenance worker swimming pool. Encounters Date Type Department Care Team Description 12/15/2024 8:30 AM EDT Ancillary Procedure [facility] [address] [place] [phone] Coronary artery disease involving [place] coronary artery of [place] heart without angina pectoris 11/10/2024 10:50 AM EDT Office Visit [facility] [address] [place] [phone] Warren Reyes MD Coronary artery disease involving [place] coronary artery of [place] heart without angina pectoris (Primary Dx); Paroxysmal atrial fibrillation (CMS/HCC V24, CMS/HCC V28) from Last 3 Months Surgical History Surgery [...] Sign Reading Time Taken Comments Blood Pressure 140/70 11/10/2024 11:29 AM EDT Pulse 58 11/10/2024 10:43 AM EDT Temperature - - Respiratory Rate - - Oxygen Saturation 96% 11/10/2024 10:43 AM EDT Inhaled Oxygen Concentration - - Weight 97.5 kg (215 lb) 12/15/2024 8:20 AM EDT Height 170.2 cm (5' 7 ) 12/15/2024 8:20 AM EDT Body Mass Index 33.67 12/15/2024 8:20 AM EDT Plan of Treatment Health Maintenance Due Date Last Done Comments Colorectal Cancer Screening: Colonoscopy 1950 Zoster Vaccines (1 of 2) 2001 Abdominal Aortic Aneurysm (AAA) Screen 02/17/2022 Cholesterol Screening (Lipid Panel) 02/17/2022 Falls Risk Assessment 02/17/2022 Hepatitis C Screening 02/17/2022 Medicare Annual Wellness Visit 02/17/2022 Social Influencers of Health Screening 02/17/2022 Hypertension/CHF/CAD Annual BMP Blood Test 02/18/2022 Depression Screening 03/11/2024 COVID-19 Vaccine ( season) 2024 11/19/2023, 12/22/2022, 12/24/2021, Additional history exists Influenza Vaccine (#1) 2024 , 12/14/2022, 12/22/2021, Additional history exists RSV Immunization Adult Patients (1 - 1-dose 75+ series) 2026 DTaP,Tdap,and Td Vaccines (2 - Td or Tdap) 10/14/2031 10/13/2021 Pneumococcal Vaccine: 50+ Years Completed 01/15/2024, 10/10/2019 [...] Procedure Name Priority Date/Time Associated Diagnosis Comments STRESS ECHOCARDIOGRAM EXERCISE WITH CONTRAST Routine 12/15/2024 8:40 AM EDT Coronary artery disease involving [place] coronary artery of [place] heart without angina pectoris from Last 3 Months Results * STRESS ECHOCARDIOGRAM EXERCISE WITH CONTRAST (12/15/2024 8:40 AM EDT) BSA 2.15 m2 CV PACS STRESS TR Peak Velocity 2.85 m/s CV PACS STRESS TR Peak Gradient 32 mmHg CV PACS STRESS Target HR 125 bpm CV PACS STRESS Baseline HR 56 bpm CV PACS STRESS Baseline SBP 142 mmHg CV PACS STRESS Baseline DBP 60 mmHg CV PACS STRESS Peak HR 138 bpm CV PACS STRESS Peak SBP 160 mmHg CV PACS STRESS Peak DBP 70 mmHg CV PACS STRESS Estimated workload 8.6 METS CV PACS STRESS Rate Pressure Product 22,080.0 mmHg*bpm CV PACS STRESS Percent HR 94 % CV PACS STRESS Exercise/inject ion duration (min) 6 min CV PACS STRESS Exercise/inject ion duration (sec) 58 sec CV PACS STRESS Angina Index 0 CV PACS STRESS [place] Treadmill Score [address] Depression (mm) 0 mm CV PACS STRESS Anatomical Region Laterality Modality Ultrasound Narrative 12/20/2024 1:57 PM EDT Exercise stress test was performed. Patient reported no symptoms during the stress test. Exercise capacity was above average. Normal blood pressure response. Post Stress Impression: The study is normal. Stress: Overall, the patient's exercise capacity was above average. Total stress time was 6 min and 58 sec. The patient reported no symptoms during the stress test. ECG: There is no ST segment changes during stress although stress ECG interpretation was somewhat limited by electrical artifact. Left Ventricle Left ventricle cavity size is normal. Wall thickness is normal. Systolic function is normal with an ejection fraction of 55-60%. Study Details Overall the study quality was technically difficult. Definity contrast was given to enhance imaging. Stress Findings A Laz protocol stress test was performed. Overall, the patient's exercise capacity was above average. Total stress time was 6 min and 58 sec. The patient experienced no angina during the test. The test was stopped because the patient experienced fatigue. The [place] Treadmill Score is 7. The patient's hemodynamic response was adequate for diagnosis. Blood pressure demonstrated a normal response. Heart rate demonstrated a normal response. The patient reported no symptoms during the stress test. ECG 74 yo male with CAD and vague chest discomfort. The ECG shows sinus bradycardia with a PAC. There is no ST segment changes during stress although stress ECG interpretation was somewhat limited by electrical artifact. Echo Post Stress Left ventricular cavity size decreased from baseline. Left ventricular systolic function improved from baseline. Normal left ventricle diastolic function post-stress. Nuclear Measurements The study is normal. Procedure Note Cristina Alvarez PA / Warren Reyes MD - 12/20/2024 Exercise stress test was performed. Patient reported no symptoms duringthe stress test. Exercise capacity was above average. Normal bloodpressure response. Post Stress Impression: The study is normal. Stress: Overall, the patient's exercise capacity was above average.Total stress time was 6 min and 58 sec. The patient reported no symptomsduring the stress test. ECG: There is no ST segment changes during stress although stress ECGinterpretation was somewhat limited by electrical artifact. us Warren Reyes MD CV ECHO PROCEDURES Final Resul t from Last 3 Months Insurance MEDICARE [facility] Care Teams Warehouse Insulation Worker Relationship Specialty Start Date End Date Wally Carter MD [address] [place] [address] PCP - General 07/27/16
--- OUTSIDE RECORDS SUMMARY | 2024-12-26 08:48 | XMS_ITS | Encounter Summary ---
Author Organization [facility] Address [address] [place] [address] Care Team Providers Care Hot Wound Spring Production Supervisor Name Role Phone Wally Carter MD Primary Care Provider Warren Plummer MD Unavailable Ashley Yañez NP Unavailable [phone] Encounter Details Date Type Department Care Team Description 10/25/2017 SCAN Medical Records [address] [place] [address] Gloria Vernon MD [address] [place] [address] Social History Tobacco Use Types Packs/Day Years [...] Date/Time Associated Diagnosis Comments OUTSIDE ECHO Routine 10/25/2017 documented in this encounter Results * OUTSIDE ECHO (10/25/2017) Provider Default CARDIOLOGY documented in this encounter Visit Diagnoses Not on filedocumented in this encounter Care Teams Hot Wound Spring Production Supervisor Relationship Specialty Start Date End Date Wally Carter MD PCP - General Oncology/Hematology 05/16/17 Warren Reyes MD [address] [place] [address] [address] [place] [address] Hed[place] Registered Nurse Rn Cardiovascular Disease 11/07/17 Ashley Yañez, MARY LOU [address] [place] [address] [address] [place] [address] Specialist Cardiology 12/12/20 documented as of this encounter
--- OUTSIDE RECORDS SUMMARY | 2024-12-26 08:48 | XMS_ITS | Encounter Summary ---
Author Organization [facility] Address [address] [place] [address] Care Team Providers Care Waiter/Waitress Second Class Name Role Phone Wally Carter MD Primary Care Provider Warren Plummer MD Unavailable [phone] Ashley Yañez NP Unavailable [phone] Encounter Details Date Type Department Care Team Description 02/08/2022 SCAN Medical Records [address] [place] [id number] Wally Carter MD Social History Tobacco Use [...] Date/Time Associated Diagnosis Comments OUTSIDE LAB Routine 02/08/2022 OUTSIDE LAB Routine 02/08/2022 documented in this encounter Results * OUTSIDE LAB (02/08/2022) Provider Default LAB * OUTSIDE LAB (02/08/2022) Provider Default LAB documented in this encounter Visit Diagnoses Not on filedocumented in this encounter Care Teams Waiter/Waitress Second Class Relationship Specialty Start Date End Date Wally Carter MD PCP - General Oncology/Hematology 3/8/18 Warren Reyes MD [address] [place] [address] Caustics Loader Cardiovascular Disease 11/07/17 Ashley Yañez NP [address] [place] [address] [address] [place] [address] Specialist Cardiology 12/12/20 documented as of this encounter
--- OUTSIDE RECORDS SUMMARY | 2024-12-26 08:49 | XMS_ITS | Encounter Summary ---
Author Organization [facility] Address [address] [place] [address] Care Team Providers Care Machine Setup Operator Name Role Phone Wally Carter MD Primary Care Provider Warren Plummer MD Unavailable [phone] Ashley Yañez NP Unavailable [phone] Encounter Details Date Type Department Care Team Description 11/30/2020 Rn Long Term Care Report Medical Records [address] [place] [id number] Wally Carter MD Social History Tobacco Use [...] on filedocumented in this encounter Care Teams Machine Setup Operator Relationship Specialty Start Date End Date Wally Carter MD PCP - General Oncology/Hematology 05/16/17 Warren Reyes MD [address] [place] [address] [place] [id number] Financial Sales Consultant Cardiovascular Disease 11/07/17 Ashley Yañez NP [address] [place] [address] [address] [place], [place] [id number] Specialist Cardiology 12/12/20 documented as of this encounter
--- OUTSIDE RECORDS SUMMARY | 2024-12-26 08:49 | XMS_ITS | Encounter Summary ---
Author Organization [facility] Address [address] [place] [address] Care Team Providers Care Manager Integrated Name Role Phone Wally Carter MD Primary Care Provider Warren Plummer MD Unavailable [phone] Ashley Yañez NP Unavailable [phone] Encounter Details Date Type Department Care Team Description 04/06/2021 SCAN Medical Records [address] [place] [address] Abstract, Provider Social History Tobacco Use Types Packs/Day Years Used Date Smoking Tobacco: Former Cigarettes 2.5 Q uit: 1985 Smokeless Tobacco: Former Alcohol Use Standard Drinks/Week Comments Yes 0 (1 standard drink = 0.6 oz pur e alcohol) 1-2 daily Sex Assigned at Date Recorded Not on file Job Start Date Occupation Industry Not on file Not on file Not on file documented as of this encounter Plan of Treatment Not on file documented as of this encounter Procedures Procedure Name Priority Date/Time Associated Diagnosis Comments OUTSIDE LAB Routine 04/06/2021 documented in this encounter Results * OUTSIDE LAB (04/06/2021) Provider Abstract LAB documented in this encounter Visit Diagnoses Not on filedocumented in this encounter Care Teams Manager Integrated Relationship Specialty Start Date End Date Wally Carter MD PCP - General Oncology/Hematology 05/16/17 Warren Reyes MD [address] [place] [address] [address] [place] [address] Cleaning Staff Supervisor Cardiovascular Disease 11/07/17 Ashley Yañez, MARY LOU [address] [place] [address] [address] [place] [address] Specialist Cardiology 12/12/20 documented as of this encounter
--- OUTSIDE RECORDS SUMMARY | 2024-12-26 08:49 | XMS_ITS | Patient Health Record ---
Author Organization Wally Carter III, MD Address [address] [place], [place] [address] Care Team Providers Care Legal Transcriptionist Name Role Phone Dr. Wally Carter III Primary Care Provider [phone] Allergies Allergen (clinical drug ingredient) Drug/Non Drug Allergy documented on EMR Reaction Allergy Type Onset Date Status No Known Food Allergy Unknown Drug Allergy Active Latex Latex Unknown Allergy Active Results Component Value Reference Range Notes SCREENING COLONOSCOPY Reviewed date:09/25/2024 09:36:37 AM Interpretation:undefined Performing Lab: Notes/Report: undefined CT chest wo con Reviewed date:04/17/2024 09:30:48 AM Interpretation: Performing Lab: Notes/Report: [address] [address] [address] Scan Report Signed Patient: Darinel Boyer MR#: [id number] 008 : 1950 Acct:[id number] Age/Sex: 73 / M ADM Date: 02/18/24 Loc: HO.CT Attending Dr: John Campbell MD Ordering Physician: John Campbell MD Date of Service: 02/18/24 Procedure(s): CT chest wo IV con Accession Number(s): [id number] cc: Wally Carter MD; John Campbell MD Report Number: [id number]: Total DLP = 237.00 mGy-cm EXAMINATION: CT CHEST WITHOUT CONTRAST CLINICAL INFORMATION: Prior abnormal imaging. COMPARISON: None available. TECHNIQUE: Multidetector volumetric CT imaging of the chest was done. Axial MIP volume rendering provided. Sagittal and coronal reformatted images were obtained. This CT examination was performed using dose optimization techniques as appropriate, variously including the following: *Automated exposure control *Adjustment of mA and/or kV according to patient size (this includes techniques or standardized protocols for targeted exams where dose is matched to indication/reason for exam; i.e. extremities or head) *Use of iterative reconstruction technique DLP: 237 mGy-cm FINDINGS: LUNGS: 5 mm nodule right middle lobe on image 295 series 5. No airspace consolidation. Left lower lobe atelectasis. Central airways are patent. MEDIASTINUM: Imaged thyroid gland is unremarkable. No bulky mediastinal or hilar lymphadenopathy. Pulmonary arteries are ectatic. Ascending thoracic aorta measures 4.3 x 4.2 cm in transverse. Heart is enlarged. No pericardial effusion. Left hemidiaphragm is elevated. CORONARY ARTERY CALCIFICATION: Severe. PLEURA: There is no pleural effusion. No pleural mass or thickening. AXILLA: No axillary lymphadenopathy. UPPER ABDOMEN: No adrenal mass. OSSEOUS STRUCTURES: No destructive bone lesions. CT/CT chest wo IV con IMPRESSION: 5 mm right middle lobe pulmonary nodule. For low risk patients, no routine follow-up imaging is recommended. Fleischner guidelines were followed. Dilated ascending thoracic aorta measuring 4.2 x 4.2 cm. Electronically signed by: Dayton Martínez MD 04/08/2024 12:00 PM [facility] [place] Dictated By: Chun Martínez MD Signed By: <Electronically signed by Chun Martínez MD in OV> 04/08/24 1200 DD/ 0735 TD/TT: 02/18/24 0749 Substation Operator Apprentice: [address] [address] [address] Scan Report Signed Patient: Herman Boyer MR#: [id number] 008 : 1950 Acct:[id number] Age/Sex: 73 / M ADM Date: 02/18/24 Loc: HO.CT Attending Dr: John Campbell MD Ordering Physician: John Campbell MD Date of Service: 02/18/24 Procedure(s): CT di st wo IV con Accession Number(s): [id number] cc: Wally Carter MD; John Campbell MD Report Number: [id number]: Total DLP = 237.00 mGy-cm EXAMINATION: CT CHEST WITHOUT CONTRAST CLINICAL INFORMATION: Prior abnormal imaging. COMPARISON: None available. TECHNIQUE: Multidetector volume tric CT imaging of the chest was done. Axial MIP volume rendering pro vided. Sagittal and coronal reformatted images were obtained. This CT examination was performed using dose optimization techniques as appropriate, various ly including the following: *Automated exposure control *Adjustment of mA an d/or kV according to patient size (this includes techniques or standa rdized protocols for targeted exams where dose is matched to indicatio n/reason for exam; i.e. extremities or head) *Use of iterative reconstruction technique DLP: 237 mGy-cm FINDINGS: LUNGS: 5 mm nodule r ight middle lobe on image 295 series 5. No airspace consolidation. Left lower lobe atelectasis. Central airways are patent. MEDIASTINUM: Imaged thyroid gland is unremarkable. No bulky mediastinal or hilar lymphadenop athy. Pulmonary arteries are ectatic. Ascending thoracic aorta measu res 4.3 x 4.2 cm in transverse. Heart is enlarged. No pericardial effus ion. Left hemidiaphragm is elevated. CORONARY ARTERY CALC IFICATION: Severe. PLEURA: There is no pleural effusion. No pleural mass or thickening. AXILLA: No axillary lymphadenopathy. UPPER ABDOMEN: No adrenal mass. OSSEOUS STRUCTURES: No destructive bone lesions. C T/CT chest wo IV con IMPRESSION: 5 mm right middle lo be pulmonary nodule. For low risk patients, no routine follow-up im aging is recommended. Fleischner guideline s were followed. Dilated ascending th oracic aorta measuring 4.2 x 4.2 cm. Electronically jordan d by: Dayton Martínez MD 04/08/2024 12:00 PM EST RP Dictated By: Chun Martínez MD Signed By: <Electron ically signed by Chun Martínez MD in OV> 04/08/24 1200 DD/ 0735 TD/TT: 02/18/24 0749 Substation Operator Apprentice: XR tibia fibula RT 2V Reviewed date:07/11/2024 08:46:00 PM Interpretation: Performing Lab: Notes/Report: [address] [address] XRay Report Signed Patient: Darinel Boyer MR#: [id number] 008 : 1950 Acct:[id number] Age/Sex: 74 / M ADM Date: 07/10/24 Loc: HO.ED Attending Dr: Ordering Physician: Layla Chowdary Date of Service: 07/10/24 Procedure(s): XR tibia fibula RT 2V Accession Number(s): [id number] cc: Wally Carter MD; Layla Chowdary EXAMINATION: XR TIBIA FIBULA 2 VIEWS RIGHT HISTORY: pain, injury COMPARISON: There are no prior studies available for comparison. FINDINGS: AP and lateral views of the right tibia and fibula are submitted. Osseous mineralization is normal. There is no fracture or dislocation. The visualized knee and ankle joint spaces are preserved. The soft tissues are unremarkable. XR/XR tibia fibula RT 2V IMPRESSION: Unremarkable examination of the right tibia and fibula. Electronically signed by: Wally Garcia MD 07/10/2024 09:17 AM EDT RP Dictated By: Wally Garcia MD Signed By: <Electronically signed by Wally Garcia MD in OV> 07/10/24 0917 DD/ 0912 TD/TT: 07/10/24 0912 Substation Operator Apprentice: [address] [address] XRay Report Signed Patient: Herman Boyer MR#: [id number] 008 : 1950 Acct:[id number] Age/Sex: 74 / M ADM Date: 07/10/24 Loc: HO.ED Attending Dr: Ordering Physician: Layla Chowdary Date of Service: 07/10/24 Procedure(s): XR tib ia fibula RT 2V Accession Number(s): [id number] cc: Wally Carter MD; Layla Chowdary EXAMINATION: XR TIBI A FIBULA 2 VIEWS RIGHT HISTORY: pain, injury COMPARISON: There ar e no prior studies available for comparison. FINDINGS: AP and lateral views of the right tibia and fibula are submitted. Osseous mineralizati on is normal. There is no fracture or dislocation. The visualized knee and ankle joint spaces are preserved. The soft tissues are unremarkable. X R/XR tibia fibula RT 2V IMPRESSION: Unremarkable examina tion of the right tibia and fibula. Electronically jordan d by: Wally Garcia MD 07/10/2024 09:17 AM EDT Dictated By: Wally Garcia MD Signed By: <Harish recinos signed by Wally Garcia MD in OV> 07/10/24916 DD/ 1 TD/TT: 07/10/24911 Substation Operator Apprentice: Reason For Referral Reason Consult and Treat Skin Check Lipoma of Torso Diagnosis 1 Lipoma of torso (D17 .1) Referral Organization Wally Carter III, MD Referring Provider First Name Wally Referring Provider Last Name Raul Referring Provider Speciality Internal M edicine Referred Provider [facility] Referred Provider Specialty Dermatology General Notes D, Colleen 01/07/2024 04:42:10 PM > Faxed referral and made patient aware Referral Priority Routine Referral Appointment Date 01/10/2024 Medications Medication SIG (Take, Route, Frequency, Duration) [...] O rally Once a day 05/06/2024 Active Immunizations Vaccine Route Administration Date Status Comme nts Influenza Unknown 03/07/2012 Administered Influenza Unknown 03/07/2012 Administered Influenza no Preserv 3 and > Unknown 12/05/2018 Administered Tdap Unknown 10/13/2021 Administered Influenza, quad IM Intramuscular 12/22/2021 Administered Social History Tobacco Use: Social History Observation [...] Never (0 point) Points 2 Interpretation Negative Problems Problem Type SNOMED Code ICD Code Onset Dates Problem Status W/U Status Risk Notes Problem 4532102 Former smoker (Z87.891) Active confirmed He is highly motivated not to smoke. He has a plan for prevention of relapse in times of stress. Problem 903950478 Obesity (E66.9) Active confirmed He has lost 4 more pounds and is working on more. We made a plan to lose weight at a rate of 1 pound per week. Problem 064559364 Lumbar radiculopathy (M54.16) Active confirmed His chronic low back pain continues and occasionally is severe but recently has been mild. No change in his regimen was made. Problem 509121077 GERD (gastroesophagea l reflux disease) (K21.9) Active confirmed His reflux is well controlled with current medications. Problem 113826821 Paroxysmal atrial fibrillation (I48.0) Active confirmed He remaiins anticoagulated. He is compliant with his medications. He has had paroxysms of atrial fibrillation recently. He spoke to the electrician ship who ordered a Holter monitor and gave him a follow-up appointment.He was in a regular sinus rhythm today. Problem Benign prostatic hyperplasia (852538795) BPH (benign prostatic hyperplasia) (N40.0) Active confirmed He arises from sleep once or twice a night to urinate. We reviewed lifestyle modification as a could reduce nocturia. Problem 845404822 Erectile dysfunction (N52.9) Active confirmed This problem ventura s been addressed with use of medication. Problem 02541162 Other and unspecified hyperlipidemia (E78.5) Active confirmed His lipids are currently well controlled and no change in his regimen was made today. Problem 943024189 Environmental allergies (Z91.09) Active confirmed He continues to take his allergy medication. The pollen season has resolved and he is improved but he is chronically allergic with rhinitis. Problem 80491661 Right sided sciatica (M54.31) Active confirmed This pain has essentially resolved. He is careful with heavy lifting. Problem 47868125 Hearing loss (H91.90) Active confirmed He has not noticed any change in his hearing. This problem will be followed carefully and if he experiences a loss and acuity he will be referred for amplification evaluation. Problem 938696290 Anticoagulation adequate (Z79.01) Active confirmed He has had no bleeding. Clopidogrel has been added to his regimen. Problem 48165451 Sleep apnea (G47.30) Active confirmed He continues to use the CPAP. He occasionally struggles with some mask. He was referred back to the company that supplies it and his federal court of appeals law clerk for more comfortable device. Problem 70741033 Restless leg syndrome (G25.81) Active confirmed He will continu e on his current therapy. He finds it quite beneficial. Problem 333210531 Adenomatous polyp of colon (D12.6) Active confirmed I have recommended a colonoscopy every 5 years. Problem 7975406527967 Low testosterone (E29.1) Active confirmed He is not currently taking replacement. The value is being repeated. It is likely related to his obesity. 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 His blood pressure today is adequate. Will be followed closely until he sees electrician ship. Problem 694471010064805 Lipoma of torso (D17.1) Active confirmed He has a small apparent lipoma between 2 ribs. It had no malignant characteristics and will be observed carefully. 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 emergency room. The report says it is unchanged compared to prior examinations. His pulmonary practice management consultant, Dr. Campbell, has ordered a CT scan of the chest. Vital Signs Heart Rate 57 /min 11/06/2024 Temperature 98.6 degrees Fahrenheit 11/06/2024 Respiratory Rate 16 /min 07/27/2024 Oximetry 98 % 07/27/2024 Blood pressure diastolic 69 mm Hg 11/06/2024 Height 68 in 11/06/2024 Blood pressure systolic 138 mm Hg 11/06/2024 Weight 217 lbs 11/06/2024 BMI 32.99 kg/m2 11/06/2024 Encounters Encounter Location Date Provider Diagnosis Wally Carter III, MD [address] [place] [address] [place] [address] 01/24/2024 Wally Schulz and unspecifie d hyperlipidemia E78.5 ; Coronary artery disease of [place] artery [place] heart with stable angina pectoris I25.118 ; Obesity E66.9 ; Sleep apnea G47.30 ; Former smoker Z87.891 ; Restless leg syndrome G25.81 ; Paroxysmal atrial fibrillation I48.0 ; Environmental allergies Z91.09 ; BPH (benign prostatic hyperplasia) N40.0 ; Low testosterone E29.1 and Elevated hemidiaphragm J98.6 Wally Carter III, MD [address] [place] [address] [place] [address] 04/21/2024 Wally Schulz and unspecifie d hyperlipidemia E78.5 ; Paroxysmal atrial fibrillation I48.0 ; Sleep apnea G47.30 ; Obesity E66.9 ; Former smoker Z87.891 ; Coronary artery disease of [place] artery [place] heart with stable angina pectoris I25.118 and BPH (benign prostatic hyperplasia) N40.0 Wally Carter III, MD [address] [place] [address] [place] [address] 04/29/2024 Wally Schuzl and unspecifie d hyperlipidemia E78.5 ; Coronary artery disease of [place] artery of [place] heart with stable angina pectoris I25.118 ; Sleep apnea G47.30 ; Obesity E66.9 ; Former smoker Z87.891 ; Restless leg syndrome G25.81 ; Paroxysmal atrial fibrillation I48.0 ; Hearing loss H91.90 ; Anticoagulation adequate Z79.01 ; Environmental allergies Z91.09 ; BPH (benign prostatic hyperplasia) N40.0 and Low testosterone E29.1 Wally Carter III, MD [address] [place] [address] [place] [address] 07/27/2024 Wally Schulz and unspecifie d hyperlipidemia E78.5 ; Coronary artery disease of [place] artery of [place] heart with stable angina pectoris I25.118 ; Lumbar radiculopathy M54.16 ; Sleep apnea G47.30 ; GERD (gastroesophageal reflux disease) K21.9 ; Obesity E66.9 ; Restless leg syndrome G25.81 ; Former smoker Z87.891 and Hearing loss H91.90 Wally Carter III, MD [address] [place] [address] [place] [address] 09/25/2024 Wally Schulz and unspecifie d hyperlipidemia E78.5 ; Coronary artery disease of [place] artery of [place] heart with stable angina pectoris I25.118 ; Obesity E66.9 ; Sleep apnea G47.30 ; GERD (gastroesophageal reflux disease) K21.9 ; Environmental allergies Z91.09 ; Restless leg syndrome G25.81 ; Anticoagulation adequate Z79.01 ; Lumbar radiculopathy M54.16 ; BPH (benign prostatic hyperplasia) N40.0 and Former smoker Z87.891 Wally Carter III, MD [address] [place] [address] [place] [address] 10/02/2024 Wally Schulz and unspecifie d hyperlipidemia E78.5 ; Coronary artery disease of [place] artery [place] heart with stable angina pectoris I25.118 ; Obesity E66.9 ; Former smoker Z87.891 ; Sleep apnea G47.30 ; GERD (gastroesophageal reflux disease) K21.9 ; Paroxysmal atrial fibrillation I48.0 ; Anticoagulation adequate Z79.01 ; Low testosterone E29.1 ; Hearing loss H91.90 and Lumbar radiculopathy M54.16 Wally aCrter III, MD [address] [place] [address] [place] [address] 11/06/2024 Wally Carter Obesity E66.9 ; Li nary artery disease of [place] artery [place] heart with stable angina pectoris I25.118 ; Former smoker Z87.891 ; Other and unspecified hyperlipidemia E78.5 ; Sleep apnea G47.30 ; GERD (gastroesophageal reflux disease) K21.9 ; Restless leg syndrome G25.81 ; Environmental allergies Z91.09 ; Hearing loss H91.90 ; Low testosterone E29.1 ; Paroxysmal atrial fibrillation I48.0 ; Anticoagulation adequate Z79.01 and Lumbar radiculopathy M54.16 Wally Carter III, MD [address] [place] [address] [place] [address] 01/07/2024 Wally Carter III, MD [address] [place] [address] [place] [address] 01/14/2024 Wally Carter III, MD [address] [place] [address] [place] [address] 05/06/2024 Wally Carter III, MD [address] [place] [address] [place] [address] 07/28/2024 Wally Carter Assessments Encounter Date Diagnosis (ICD Code) Assessment Notes Treat ment Notes Treatment Clinical Notes 01/24/2024 Other and unspecifie d hyperlipidemia (ICD-10 - E78.5) His lipids are currently stable aand no change in his therapy was needed today. 01/24/2024 Coronary artery disease of [place] artery of [place] heart with stable angina pectoris (ICD-10 - I25.118) He was admitted to [facility] last weekend for anginal chest pain. A stress test was unremarkable. He is now home. He'll be seen in the office in the near future after blood work. 04/21/2024 Paroxysmal atrial fibrillation (ICD-10 - I48.0) He remaiins anticoagulated. He is compliant with his medications. He has had paroxysms of atrial fibrillation recently. He spoke to the electrician ship who ordered a Holter monitor and gave him a follow-up appointment. 04/21/2024 Other and unspecifie d hyperlipidemia (ICD-10 - E78.5) His lipids are currently stable aand no change in his therapy was needed today. 04/29/2024 Other and unspecifie d hyperlipidemia (ICD-10 - E78.5) His lipids are currently stable aand no change in his therapy was needed today. 04/29/2024 Coronary artery disease of [place] artery of [place] heart with stable angina pectoris (ICD-10 - I25.118) He was admitted to [facility] last weekend for anginal chest pain. A stress test was unremarkable. He is now home. He'll be seen in the office in the near future after blood work. 07/27/2024 Other and unspecifie d hyperlipidemia (ICD-10 - E78.5) His lipids are currently well controlled and no change in his regimen was made today. 07/27/2024 Coronary artery disease of [place] artery of [place] heart with stable angina pectoris (ICD-10 - I25.118) He was admitted to [facility] last weekend for anginal chest pain. A stress test was unremarkable. He is now home. He'll be seen in the office in the near future after blood work. 09/25/2024 Other and unspecifie d hyperlipidemia (ICD-10 - E78.5) His lipids are currently well controlled and no change in his regimen was made today. 09/25/2024 Coronary artery disease of [place] artery of [place] heart with stable angina pectoris (ICD-10 - I25.118) He was admitted to [facility] last weekend for anginal chest pain. A stress test was unremarkable. He is now home. He'll be seen in the office in the near future after blood work. 10/02/2024 Other and unspecifie d hyperlipidemia (ICD-10 - E78.5) His lipids are currently well controlled and no change in his regimen was made today. 10/02/2024 Coronary artery disease of [place] artery of [place] heart with stable angina pectoris (ICD-10 - I25.118) He wishes to remain off of the amlodipine which was given to him by the electrician ship. His blood pressure today is adequate. Will be followed closely until he sees electrician ship. 11/06/2024 Obesity (ICD-10 - E66.9) He has lost 4 more pounds and is working on more. We made a plan to lose weight at a rate of 1 pound per week. 11/06/2024 Coronary artery disease of [place] artery of [place] heart with stable angina pectoris (ICD-10 - I25.118) He wishes to remain off of the amlodipine which was given to him by the electrician ship. His blood pressure today is adequate. Will be followed closely until he sees electrician ship. 01/24/2024 Obesity (ICD-10 - E66.9) His body mass index is 34. He has gained 5 pounds. We have discussed his weight loss strategy and his diet and his nutrition. Continue to try lose weight at a rate of one half of a pound per week. 04/21/2024 Sleep apnea (ICD-10 - G47.30) He has been compliant with his CPAP machine. He denies any recent daytime somnolence. Surveillance and sleep medicine. Will continue. 04/29/2024 Sleep apnea (ICD-10 - G47.30) He has been compliant with his CPAP machine. He denies any recent daytime somnolence. Surveillance and sleep medicine. Will continue. 07/27/2024 Lumbar radiculopathy (ICD-10 - M54.16) His chronic low back pain continues and occasionally is severe but recently has been mild. No change in his regimen was made. 09/25/2024 Obesity (ICD-10 - E66.9) He has lost 7 pounds and is working on more. We made a plan to lose weight at a rate of 1 pound per week. 10/02/2024 Obesity (ICD-10 - E66.9) He has lost 7 pounds and is working on more. We made a plan to lose weight at a rate of 1 pound per week. 11/06/2024 Former smoker (ICD-1 0 - Z87.891) He is highly motivated not to smoke. He has a plan for prevention of relapse in times of stress. 01/24/2024 Sleep apnea (ICD-10 - G47.30) He has [...] half of a pound per week. 04/29/2024 Obesity (ICD-10 - E66.9) His body mass index is 34. He has gained 5 pounds. We have discussed his weight loss strategy and his diet and his nutrition. Continue to try lose weight at a rate of one half of a pound per week. 07/27/2024 Sleep apnea (ICD-10 - G47.30) He continues to use the CPAP. He occasionally struggles with some mask. He was referred back to the company that supplies it and his federal court of appeals law clerk for more comfortable device. 09/25/2024 Sleep apnea (ICD-10 - G47.30) He continues to use the CPAP. He occasionally struggles with some mask. He was referred back to the company that supplies it and his federal court of appeals law clerk for more comfortable device. 10/02/2024 Former smoker (ICD-1 0 - Z87.891) He is highly motivated not to smoke. He has a plan for prevention of relapse in times of stress. 11/06/2024 Other and unspecifie d hyperlipidemia (ICD-10 - E78.5) His lipids are currently well controlled and no change in his regimen was made today. 01/24/2024 Former smoker (ICD-1 0 - Z87.891) He is highly motivated not to smoke. He has a plan for prevention of relapse in times of stress. 04/21/2024 Former smoker (ICD-1 0 - Z87.891) He is highly motivated not to smoke. He has a plan for prevention of relapse in times of stress. 04/29/2024 Former smoker (ICD-1 0 - Z87.891) He is highly motivated not to smoke. He has a plan for prevention of relapse in times of stress. 07/27/2024 GERD (gastroesophageal reflux disease) (ICD-10 - K21.9) His reflux is well controlled with current medications. 09/25/2024 GERD (gastroesophageal reflux disease) (ICD-10 - K21.9) His reflux is well controlled with current medications. 10/02/2024 Sleep apnea (ICD-10 - G47.30) He continues to use the CPAP. He occasionally struggles with some mask. He was referred back to the company that supplies it and his federal court of appeals law clerk for more comfortable device. 11/06/2024 Sleep apnea (ICD-10 - G47.30) He continues to use the CPAP. He occasionally struggles with some mask. He was referred back to the company that supplies it and his federal court of appeals law clerk for more comfortable device. 01/24/2024 Restless leg syndrom e (ICD-10 - G25.81) He will continue on his current therapy. He finds it quite beneficial. 04/21/2024 Coronary artery disease of [place] artery of [place] heart with stable angina pectoris (ICD-10 - I25.118) He was admitted to [facility] last weekend for anginal chest pain. A stress test was unremarkable. He is now home. He'll be seen in the office in the near future after blood work. 04/29/2024 Restless leg syndrom e (ICD-10 - G25.81) He will continue on his current therapy. He finds it quite beneficial. 07/27/2024 Obesity (ICD-10 - E66.9) His body mass index is 34. He has gained 5 pounds. We have discussed his weight loss strategy and his diet and his nutrition. Continue to try lose weight at a rate of one half of a pound per week. 09/25/2024 Environmental allergies (ICD-10 - Z91.09) He continues to take his allergy medication. The pollen season has resolved and he is improved but he is chronically allergic with rhinitis. 10/02/2024 GERD (gastroesophageal reflux disease) (ICD-10 - K21.9) His reflux is well controlled with current medications. 11/06/2024 GERD (gastroesophageal reflux disease) (ICD-10 - K21.9) His reflux is well controlled with current medications. 01/24/2024 Paroxysmal atrial fibrillation (ICD-10 - I48.0) He had an episode of atrial fibrillation 2 days ago but is in normal sinus rhythm with a controlled rate today. He sees his electrician ship and a couple of weeks. No change in his regimen is needed. He remains on anticoagulants. 04/21/2024 BPH (benign prostati c hyperplasia) (ICD-10 - N40.0) He arises from sleep once or twice a night to urinate. We reviewed lifestyle modification as a could reduce nocturia. 04/29/2024 Paroxysmal atrial fibrillation (ICD-10 - I48.0) He remaiins anticoagulated. He is compliant with his medications. He has had paroxysms of atrial fibrillation recently. He spoke to the electrician ship who ordered a Holter monitor and gave him a follow-up appointment. 07/27/2024 Restless leg syndrom e (ICD-10 - G25.81) He will continue on his current therapy. He finds it quite beneficial. 09/25/2024 Restless leg syndrom e (ICD-10 - G25.81) He will continue on his current therapy. He finds it quite beneficial. 10/02/2024 Paroxysmal atrial fibrillation (ICD-10 - I48.0) He remaiins anticoagulated. He is compliant with his medications. He has had paroxysms of atrial fibrillation recently. He spoke to the electrician ship who ordered a Holter monitor and gave him a follow-up appointment.He was in a regular sinus rhythm today. 11/06/2024 Restless leg syndrom e (ICD-10 - G25.81) He will continue on his current therapy. He finds it quite beneficial. 01/24/2024 Environmental allergies (ICD-10 - Z91.09) He continues to take his allergy medication. The pollen season has resolved and he is improved but he is chronically allergic with rhinitis. 04/29/2024 Hearing loss (ICD-10 - H91.90) He has not noticed any change in his hearing. This problem will be followed carefully and if he experiences a loss and acuity he will be referred for amplification evaluation. 07/27/2024 Former smoker (ICD-1 0 - Z87.891) He is highly motivated not to smoke. He has a plan for prevention of relapse in times of stress. 09/25/2024 Anticoagulation adequate (ICD-10 - Z79.01) He has had no bleeding. Clopidogrel has been added to his regimen. 10/02/2024 Anticoagulation adequate (ICD-10 - Z79.01) He has had no bleeding. Clopidogrel has been added to his regimen. 11/06/2024 Environmental allergies (ICD-10 - Z91.09) He continues to take his allergy medication. The pollen season has resolved and he is improved but he is chronically allergic with rhinitis. 01/24/2024 BPH (benign prostati c hyperplasia) (ICD-10 - N40.0) He arises from sleep once or twice a night to urinate. We reviewed lifestyle modification as a could reduce nocturia. 04/29/2024 Anticoagulation adequate (ICD-10 - Z79.01) He has had no bleeding. Clopidogrel has been added to his regimen. 07/27/2024 Hearing loss (ICD-10 - H91.90) He has not noticed any change in his hearing. This problem will be followed carefully and if he experiences a loss and acuity he will be referred for amplification evaluation. 09/25/2024 Lumbar radiculopathy (ICD-10 - M54.16) His chronic low back pain continues and occasionally is severe but recently has been mild. No change in his regimen was made. 10/02/2024 Low testosterone (ICD-10 - E29.1) He is not currently taking replacement. The value is being repeated. It is likely related to his obesity. 11/06/2024 Hearing loss (ICD-10 - H91.90) He has not noticed any change in his hearing. This problem will be followed carefully and if he experiences a loss and acuity he will be referred for amplification evaluation. 01/24/2024 Low testosterone (ICD-10 - E29.1) He is not currently taking replacement. The value is being repeated. It is likely related to his obesity. 04/29/2024 Environmental allergies (ICD-10 - Z91.09) He continues to take his allergy medication. The pollen season has resolved and he is improved but he is chronically allergic with rhinitis. 09/25/2024 BPH (benign prostati c hyperplasia) (ICD-10 - N40.0) He arises from sleep once or twice a night to urinate. We reviewed lifestyle modification as a could reduce nocturia. 10/02/2024 Hearing loss (ICD-10 - H91.90) He has not noticed any change in his hearing. This problem will be followed carefully and if he experiences a loss and acuity he will be referred for amplification evaluation. 11/06/2024 Low testosterone (ICD-10 - E29.1) He is not currently taking replacement. The value is being repeated. It is likely related to his obesity. 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 emergency room. The report says it is unchanged compared to prior examinations. His pulmonary practice management consultant, Dr. Campbell, has ordered a CT scan of the chest. 04/29/2024 BPH (benign prostati c hyperplasia) (ICD-10 - N40.0) He arises from sleep once or twice a night to urinate. We reviewed lifestyle modification as a could reduce nocturia. 09/25/2024 Former smoker (ICD-1 0 - Z87.891) He is highly motivated not to smoke. He has a plan for prevention of relapse in times of stress. 10/02/2024 Lumbar radiculopathy (ICD-10 - M54.16) His chronic low back pain continues and occasionally is severe but recently has been mild. No change in his regimen was made. 11/06/2024 Paroxysmal atrial fibrillation (ICD-10 - I48.0) He remaiins anticoagulated. He is compliant with his medications. He has had paroxysms of atrial fibrillation recently. He spoke to the electrician ship who ordered a Holter monitor and gave him a follow-up appointment.He was in a regular sinus rhythm today. 04/29/2024 Low testosterone (ICD-10 - E29.1) He is not currently taking replacement. The value is being repeated. It is likely related to his obesity. 11/06/2024 Anticoagulation adequate (ICD-10 - Z79.01) He has had no bleeding. Clopidogrel has been added to his regimen. 11/06/2024 Lumbar radiculopathy (ICD-10 - M54.16) His chronic low back pain continues and occasionally is severe but recently has been mild. No change in his regimen was made. Plan Of Treatment Pending Test Test Name Order Date PROFILE, FASTING (COMPREHENSIVE METABOLI C) 09/25/2024 PROFILE, FASTING (COMPREHENSIVE METABOLI C) 09/28/2020 PROFILE, FASTING (COMPREHENSIVE METABOLI C) 01/24/2024 PROFILE, FASTING (COMPREHENSIVE METABOLI C) 11/20/2018 PROFILE, FASTING (COMPREHENSIVE METABOLI C) 07/17/2018 PROFILE, FASTING (COMPREHENSIVE METABOLI C) 04/11/2021 PROFILE, FASTING (COMPREHENSIVE METABOLI C) 02/14/2022 PROFILE, FASTING (COMPREHENSIVE METABOLI C) 09/25/2023 PROFILE, FASTING (COMPREHENSIVE METABOLI C) 07/27/2024 PROFILE, FASTING (COMPREHENSIVE METABOLI C) 10/06/2019 PROFILE, FASTING (COMPREHENSIVE METABOLI C) 11/30/2020 PROFILE, FASTING (COMPREHENSIVE METABOLI C) 03/28/2023 PROFILE, FASTING (COMPREHENSIVE METABOLI C) 10/16/2021 PROFILE, FASTING (COMPREHENSIVE METABOLI C) 04/29/2024 PROFILE, FASTING (COMPREHENSIVE METABOLI C) 12/14/2022 PROFILE, FASTING (COMPREHENSIVE METABOLI C) 03/23/2019 PROFILE, FASTING (COMPREHENSIVE METABOLI C) 07/10/2021 PROFILE, FASTING (COMPREHENSIVE METABOLI C) 08/08/2022 PROFILE, RANDOM (COMPREHENSIVE METABOLIC ) 02/03/2020 LIPID PANEL 12/14/2022 LIPID PANEL 03/23/2019 LIPID PANEL 08/08/2022 LIPID PANEL 09/28/2020 LIPID PANEL 11/20/2018 LIPID PANEL 02/03/2020 LIPID PANEL 07/17/2018 LIPID PANEL 04/11/2021 LIPID PANEL 10/06/2019 LIPID PANEL 11/30/2020 LIPID PANEL 10/16/2021 VITAMIN B12 AND FOLATE 07/17/2018 B12 11/20/2018 PSA, TOTAL 10/16/2021 PSA, TOTAL 07/10/2021 PSA, TOTAL 08/08/2022 PSA, TOTAL 02/03/2020 PSA, TOTAL 09/25/2023 PSA, TOTAL 11/06/2024 PSA, TOTAL 03/28/2023 PSA, TOTAL 04/29/2024 PSA, TOTAL+FREE 11/30/2020 CBC w DIFF 11/30/2020 CBC w DIFF 10/16/2021 CBC w DIFF 09/25/2024 CBC w DIFF 12/14/2022 CBC w DIFF 03/23/2019 CBC w DIFF 07/10/2021 CBC w DIFF 09/28/2020 CBC w DIFF 08/08/2022 CBC w DIFF 02/14/2022 CBC w DIFF 07/27/2024 CBC w DIFF 11/20/2018 CBC w DIFF 02/03/2020 CBC w DIFF 04/11/2021 CBC w DIFF 09/25/2023 CBC w DIFF 07/17/2018 CBC w DIFF 10/06/2019 TESTOSTERONE, TOTAL 08/08/2022 TESTOSTERONE, TOTAL 07/17/2018 CBC WITH AUTO DIFF 03/28/2023 CBC WITH AUTO DIFF 04/29/2024 CBC WITH AUTO DIFF 01/24/2024 SARS COV2 RNA RT PCR 11/11/2019 Lipid Panel 03/28/2023 Lipid Panel 04/29/2024 Lipid Panel 09/25/2024 Lipid Panel 07/10/2021 Lipid Panel 01/24/2024 Lipid Panel 02/14/2022 Lipid Panel 07/27/2024 Lipid Panel 09/25/2023 PSA Free and Total 11/18/2020 Testosterone, Free/Total 12/14/2022 Testosterone, Total 11/06/2024 Next Appt Details Provider Name:Wally Carter , 12/29/2024 09:45:00 AM, [address] [place] [address] [address], [place], [id number], Provider Name:Wally Carter , 09/28/2025 09:30:00 AM, [address] [place] [address] [address], [place], [id number], Insurance Providers Payer Name Payer Address Payer Phone Subscriber Number Group Number Insured Name Patient Relationship to Insured Coverage Start Date Coverage End Date MEDICARE NGS [address] [place] [id number] Darinel Boyer Self - patient is the insured 1 [facility] [address] [place], [place] [id number] [facility] Self - patient is the insured Medical (General) History Medical History History ICD Code environmental allergies bilateral shoulder pain obstructive sleep apnea GERD restless leg syndrome ED nephrotic syndrome age 5 farsighted, wears bifocals hyperlipidemia onychomycosis episodic erectile dysfunction adenomatous colonic polyp 2001 obesity hearing loss low testosterone level June 2013 Hypertension Atrial fibrillation Anticoagulated Coronary artery disease, angioplasty 202 0 Patient had bronchitis many years ago. Back pain: Patient reports ongoing back pain Flu: Patient currently experiencing flu symptoms Adenomatous polyp hepatic flexure colono patricia, Damon 2023 Surgical History Surgery Date(Month/Year) No history endoscopy and colonoscopy at [facility] 01/10 024 Cardiac catheterization and angioplasty with a stent LAD, [facility] 09/2019 Drew, L45 disc decomression 06/2016 Right knee miniscus surgery 02/2015 COLONOSCOPY 2012 crush injury right third finger at work 2011 colonoscopy, Dr. Levy, donnie nomatous polyp transverse colon, Gastritis and adenomatous polyp hepatic flexure 2001 fracture right thumb renal biopsy resection of lipoma Hospitalization History Reason Date(Month/Year) No history Atrial fibrillation 02/2018
--- OUTSIDE RECORDS SUMMARY | 2024-12-26 08:49 | XMS_ITS | Encounter Summary ---
Author Organization [facility] Address [address] [place] [phone] Phone Care Team Providers Care Criminal Research Specialist Name Role Phone Wally Carter MD Primary Care Provider [phone] Encounter Details Date Type Department Care Team (Late st Contact Info) Description 01/14/2024 Procedure Pass [facility] Endoscopy Admitting Dept Virtual Department [address] [place] [address] Social History Tobacco Use Types Packs/Day Years Used Date Smoking Tobacco: Former Cigarettes Q uit: 1985 Alcohol Use Standard Drinks/Week Comments Yes 2 [...] on filedocumented in this encounter Care Teams Criminal Research Specialist Relationship Specialty Start Date End Date Wally Carter MD [address] [place] [address] [address] [address] PCP - General Medical Oncology 01/01/24 documented as of this encounter Additional Source Comments The information contained in this document represents components of the legal health record. It is not the complete legal health record.[facility]
--- OUTSIDE RECORDS SUMMARY | 2024-12-26 08:50 | XMS_ITS | Encounter Summary ---
Author Organization [facility] Address [address] [place] [address] Care Team Providers Care Senior Datastage Developer Name Role Phone Wally Carter MD Primary Care Provider Warren Plummer MD Unavailable [phone] Ashley Yañez NP Unavailable [phone] Encounter Details Date Type Department Care Team Description 10/03/2021 SCAN Medical Records [address] [place] [id number] Abstract, Provider Social History Tobacco Use Types [...] on filedocumented in this encounter Care Teams Senior Datastage Developer Relationship Specialty Start Date End Date Wally Carter MD PCP - General Oncology/Hematology 05/16/17 Warren Reyes MD [address] [place] [address] [address] [place] [address] Aerial Photographer Cardiovascular Disease 11/07/17 Ashley Yañez, MARY LOU [address] [place] [address] [address] [place] [address] Specialist Cardiology 12/12/20 documented as of this encounter
[2024-12-26 09:30] LABS: MANUAL DIFF FLAG NO
[2024-12-26 10:05] LABS: Hematocrit 42.9 % (42.0-52.0); Hemoglobin 14.1 g/dl (14.0-18.0); Imm Gran Abs Auto 0.02 X10*3/uL (0.00-0.03); Imm Gran Pct Auto 0.4 % (0.0-0.4); Lymphocytes Absolute Auto 1.2 X10*3/uL (1.2-4.9); Mean Corpuscular HGB Conc 32.9 g/dl (31.0-36.0); Mean Corpuscular Hemoglobin 28.4 pg (27.0-33.0); Mean Corpuscular Volume 86.5 fL (80.0-98.0); NRBC Abs Auto 0.000 X10*3/uL (0.0-0.012); NRBC Pct Auto 0.0 /100WBC (0.0-0.2); Platelet Count 195 X10*3/uL (160-400); Red Blood Count 4.96 X10*6/uL (4.60-5.80); White Blood Count 5.2 X10*3/uL (4.8-10.8)
[2024-12-26 10:51] LABS: Alanine Aminotransferase 33 U/L (0-40); Albumin Level 4.1 g/dL (3.5-5.0); Alkaline Phosphatase 98 U/L (39-117); Anion Gap 14 (12-20); Aspartate Amino Transferase 35 U/L (5-37); Blood Urea Nitrogen 20 mg/dL (9-16); Calcium 9.0 mg/dL (8.4-10.2); Carbon Dioxide 28 mmol/L (22-29); Chloride 105 mmol/L (96-108); Cholesterol 140 mg/dL (<200); Estimated Glomerular Filt Rate > 60; HDL Cholesterol 59 mg/dL (>40); Potassium 4.8 mmol/L (3.3-5.1); Sodium 142 mmol/L (135-145); Total Protein 6.5 g/dL (6.5-8.0); Triglycerides 44 mg/dL (<150)
[2024-12-26 11:13] LABS: Prostate Specific Antigen 0.85 ng/mL (<0.05-4.0)
== END 2024-12-26 08:44 | disposition home or self-care (01) ==
LOC: HO.LAB 08:43
PROVIDERS: PCP Internal Medicine Medical Oncology; Visit Provider Internal Medicine Medical Oncology
DX: N40.0 Benign prostatic hyperplasia without lower urinary tract symptoms (principal); E78.5 Hyperlipidemia, unspecified; N52.9 Male erectile dysfunction, unspecified; Z12.5 Encounter for screening for malignant neoplasm of prostate
CPT/HCPCS: 36415; 80053; 80061; 84153; 84403; 85025

== ENCOUNTER 2025-02-09 12:51 | Outpatient (REF) | payer MEDICARE, SELFPAY ==
--- NOTE | ~2025-02-09 | CT_ITS ---
CLINICAL HISTORY: R91.8 - Other nonspecific abnormal finding of lung field CT chest without IV contrast. COMPARISON: CT chest dated 02/18/24 at 07:35 EST FINDINGS: Visualized thyroid is unremarkable. No supraclavicular or axillary lymphadenopathy. Main pulmonary artery is enlarged measuring up to 3.1 cm. This can be associated with pulmonary hypertension. Ascending aortic ectasia measuring up to 4.2 cm. Coronary artery calcifications and/or stents present within the LAD. Aortic annular calcifications. Normal esophagus. No mediastinal lymphadenopathy. No pleural effusion. Elevation of the left hemidiaphragm, similar to prior imaging. Minimal atelectasis along the left lung base adjacent to the diaphragm. Trachea and central airways are clear. No significant bronchial wall thickening. No bronchiectasis. Right middle lobe 5 mm pulmonary nodule (series 5, image 80), stable. No new or growing pulmonary nodule identified. Partially visualized left renal cystic lesion measuring 2.3 cm, similar to prior imaging. Flowing marginal osteophytes along the mid to lower thoracic spine. No acute fracture or suspicious bone lesion. IMPRESSION: 1. Stable right middle lobe 5 mm pulmonary nodule. No further specific follow-up recommendations. 2. Persistent elevation of the left hemidiaphragm. 3. Stable ascending aortic ectasia measuring up to 4.2 cm. Enlarged main pulmonary artery can be associated with hypertension. This document has been electronically signed by: Ancelmo Gonzalez MD on 02/09/2025 16:40:04
--- OUTSIDE RECORDS SUMMARY | 2025-02-09 14:46 | XMS_ITS | Encounter Summary ---
Author Organization [facility] Address [address] [place] [address] Phone Care Team Providers Care Puppet Maker Name Role Phone Wally Carter MD Primary Care Provider [phone] Encounter Details Date Type Department Care Team (Late st Contact Info) Description 01/14/2024 Procedure Pass [facility] Endoscopy Admitting Dept Virtual Department [address] [place] [address] Social History Tobacco Use Types Packs/Day Years [...] on filedocumented in this encounter Care Teams Puppet Maker Relationship Specialty Start Date End Date Wally Carter MD [address] [place] [address] [address] [address] PCP - General Medical Oncology 01/01/24 documented as of this encounter Additional Source Comments The information contained in this document represents components of the legal health record. It is not the complete legal health record.[facility]
--- OUTSIDE RECORDS SUMMARY | 2025-02-09 14:46 | XMS_ITS | Clinical Summary ---
Author Organization [facility] Address [address] [place] [address] Phone Care Team Providers Care Weed Sprayer Name Role Phone Wally Carter MD Primary Care Provider [phone] Allergies Active Allergy Reactions Criticality Noted Date [...] BY MOUTH EVERY DAY 90 tablet 2 5 Active amLODIPine (NORVASC) 5 mg tablet TAKE 1 TABLET BY MOUTH EVERY DAY 90 tablet 1 5 Active clopidogreL (PLAVIX) 75 mg tablet TAKE 1 TABLET BY MOUTH EVERY DAY 90 tablet 3 5 Active Active Problems Problem Noted Date Diagnosed Date Atrial fibrillation (CMS/HCC V24, CMS/HCC V28) 1 Overview (02/05/2024): Assessment & Plan [...] were concerned. He did have a 48-hour senior paralegal completed in September which showed no evidence of significant bradycardia or pauses. We will once again repeat a 24-hour senior paralegal. Encounters Date Type Department Care Team Description 12/15/2024 8:30 AM EDT Ancillary Procedure [facility] Cardiology [facility] [address] [place] [address] Coronary artery disease involving tunica-biloxi coronary artery of tunica-bil[place]i heart without angina pectoris 11/10/2024 10:50 AM EDT Office Visit [facility] Cardiology [facility] [address] [place] [address] Warren Reyes MD Coronary artery disease involving tunica-biloxi coronary artery of tunica-biloxi heart without angina pectoris (Primary Dx); Paroxysmal [...] Years Used Date Smoking Tobacco: Former Cigarettes 0 Q uit: 03/11/1984 Smokeless Tobacco: Never Alcohol [...] 8:40 AM EDT Coronary artery disease involving tunica-biloxi coronary artery of tunica-biloxi heart without angina pectoris from Last 3 [...] t from Last 3 Months Insurance MEDICARE [facility] Care Teams Weed Sprayer Relationship Specialty Start Date End Date Wally Carter MD [address] [address] PCP - General 07/27/16
--- OUTSIDE RECORDS SUMMARY | 2025-02-09 14:46 | XMS_ITS | Clinical Summary ---
Author Organization [facility] Address [address] [place] [address] Phone Care Team Providers Care Sheet Metal Shop Foreman Name Role Phone Wally Carter MD Primary Care Provider [phone] Allergies Active Allergy Reactions Criticality Noted Date [...] VACCINE (1 - 1-dose 75+ series) 2026 COLONOSCOPY 01/13/2027 05/19/2024, 01/14/2024 COLORECTAL CANCER SCREENING 01/13/2027 Adult Td,Tdap Booster 10/14/2031 10/13/2021 HEPATITIS A VACCINES Aged Out No long [...] this topic Medical Devices Implanted Type Area Outcomes Specialist Device Identifier Shelf Expiration Date Model / Serial / Lot Lad Stent Procedures Procedure Name Priority Date/Time Associated Diagnosis Comments COLONOSCOPY FOR RESULT ENTRY ONLY Routine 05/19/2024 from Last 3 Months or Most Recently Relevant to Health Maintenance Results * COLONOSCOPY FOR RESULT ENTRY ONLY (05/19/2024) Colonoscopy External us Historical Provider MD HEALTH MAINTENANCE Final Result from Last 3 Months or Most Recently Relevant to Health Maintenance Insurance MEDICARE PART A & B [employer] MEDEX SUPPLEMENT MEDICARE PART A & B [facility] MEDEX SUPPLEMENT MEDICARE PART A & B [employer] MEDEX SUPPLEMENT MEDICARE PART A & B [employer] MEDEX SUPPLEMENT MEDICARE PART A & B [facility] MEDEX SUPPLEMENT MEDICARE PART A & B [employer] SUPPLEMENT Care Teams Sheet Metal Shop Foreman Relationship Specialty Start Date End Date Wally Carter MD [address] [place] [address] Dr [place] [id number] PCP - General Medical Oncology 01/01/24 Additional Source Comments The information contained in this document represents components of the legal health record. It is not the complete legal health record.[facility]
== END 2025-02-09 12:52 | disposition home or self-care (01) ==
LOC: HO.CT 12:51
PROVIDERS: PCP Internal Medicine Medical Oncology; Visit Provider Hospitalist
DX: R91.8 Other nonspecific abnormal finding of lung field (principal)
CPT/HCPCS: 71250

== ENCOUNTER → 2025-02-09 12:53 | Outpatient (BNV) | payer MEDICARE, SELFPAY | PROVIDERS: PCP Internal Medicine Medical Oncology; Visit Provider Radiology Diagnostic Radiology | DX: I77.810 Thoracic aortic ectasia (principal); R91.1 Solitary pulmonary nodule | CPT/HCPCS: 71250 ==

== ENCOUNTER 2025-03-01 10:53 | Outpatient (AMB) | payer MEDICARE, SELFPAY ==
--- OUTSIDE RECORDS SUMMARY | 2024-04-29 09:45 | XMS_ITS ---
Author Organization Wally Carter III, MD Address [address] [place] [address] Care Team Providers Care Sterile Technician Name Role Phone Dr. Wally Carter III Primary Care Provider [phone] Allergies Allergen (clinical drug ingredient) Drug/Non Drug Allergy documented on EMR Reaction Allergy Type Onset Date Status Latex Latex Unknown Allergy Active REASON FOR VISIT Recent colonoscopy, Recent episode of iinfluenza, Sleep apnea, Obesity, Paroxysmal atrial fibrillation, Coronary artery disease, Hearing loss, Lumbar radiculopathy Medications Medication SIG (Take, Route, Frequency, Duration) Notes Start Date End Date Status Albuterol Sulfate HFA 108 (9 0 Base) MCG/ACT INHALE 2 PUFFS EVERY 6 HOURS NEEDED FOR SHORTNESS OF BREATH OR WHEEZING FOR 30 DAYS Inhalation Active methylPREDNISolone 4 MG TAKE 6 TABLETS O N DAY 1 DIRECTED ON PACKAGE AND DECREASE BY 1 TAB EACH DAY FOR A TOTAL OF 6 DAYS Oral Active Azithromycin 500 MG TAKE 1 TABLET BY CAROL TH EVERY DAY FOR 5 DAYS Oral Active Clopidogrel Bisulfate 75 MG 1 tablet Ora lly Once a day Active Xarelto 20 MG 1 tablet with food Orally Once a day Active Atorvastatin Calcium 10 MG TAKE 1 TABLET ONCE A DAY Orally Once a day Active amLODIPine Besylate 5 MG 1 tablet Orally Once a day Active Social History Tobacco Use: Social History [...] Tobacco Non-User Ex-cigaret te smoker Vital Signs Temperature 98.8 degrees Fahrenheit 04/29/19 25 Blood pressure systolic 142 mm Hg 04/29/19 25 Blood pressure diastolic 90 mm Hg 025 Heart Rate 58 /min 04/29/2024 Height 68 in 04/29/2024 Weight 226 lbs 04/29/2024 BMI 34.36 kg/m2 04/29/2024 Encounters Encounter Location Date Provider Diagnosis Wally Carter III, MD [address] [place] [address] [place] [address] 04/29/2024 Wally Carter Other and unspecifie d hyperlipidemia E78.5 ; Coronary artery disease of [place] artery of [place] heart with stable angina pectoris I25.118 ; Sleep apnea G47.30 ; Obesity E66.9 ; Former smoker Z87.891 ; Restless leg syndrome G25.81 ; Paroxysmal atrial fibrillation I48.0 ; Hearing loss H91.90 ; Anticoagulation adequate Z79.01 ; Environmental allergies Z91.09 ; BPH (benign prostatic hyperplasia) N40.0 and Low testosterone E29.1 Assessments Encounter Date Diagnosis (ICD Code) Assessment Notes Treat ment Notes Treatment Clinical Notes 04/29/2024 Other and unspecifie d hyperlipidemia (ICD-10 - E78.5) His lipids are currently stable aand no change in his therapy was needed today. 04/29/2024 Coronary artery disease of [place] artery of [place] heart with stable angina pectoris (ICD-10 - I25.118) He was admitted to [facility] last weekend for anginal chest pain. A stress test was unremarkable. He is now home. He'll be seen in the office in the near future after blood work. 04/29/2024 Sleep apnea (ICD-10 - G47.30) He has been compliant with his CPAP machine. He denies any recent daytime somnolence. Surveillance and sleep medicine. Will continue. 04/29/2024 Obesity (ICD-10 - E66.9) His body mass index is 34. He has gained 5 pounds. We have discussed his weight loss strategy and his diet and his nutrition. Continue to try lose weight at a rate of one half of a pound per week. 04/29/2024 Former smoker (ICD-1 0 - Z87.891) He is highly motivated not to smoke. He has a plan for prevention of relapse in times of stress. 04/29/2024 Restless leg syndrom e (ICD-10 - G25.81) He will continue on his current therapy. He finds it quite beneficial. 04/29/2024 Paroxysmal atrial fibrillation (ICD-10 - I48.0) He remaiins anticoagulated. He is compliant with his medications. He has had paroxysms of atrial fibrillation recently. He spoke to the bank president who ordered a Holter monitor and gave him a follow-up appointment. 04/29/2024 Hearing loss (ICD-10 - H91.90) He has not noticed any change in his hearing. This problem will be followed carefully and if he experiences a loss and acuity he will be referred for amplification evaluation. 04/29/2024 Anticoagulation adequate (ICD-10 - Z79.01) He has had no bleeding. Clopidogrel has been added to his regimen. 04/29/2024 Environmental allergies (ICD-10 - Z91.09) He continues to take his allergy medication. The pollen season has resolved and he is improved but he is chronically allergic with rhinitis. 04/29/2024 BPH (benign prostati c hyperplasia) (ICD-10 - N40.0) He arises from sleep once or twice a night to urinate. We reviewed lifestyle modification as a could reduce nocturia. 04/29/2024 Low testosterone (ICD-10 - E29.1) He is not currently taking replacement. The value is being repeated. It is likely related to his obesity. Plan Of Treatment Medication Medication Name Sig Start Date Stop Date Notes Albuterol Sulfate HFA 108 (9 0 Base) MCG/ACT INHALE 2 PUFFS EVERY 6 HOURS NEEDED FOR SHORTNESS OF BREATH OR WHEEZING FOR 30 DAYS Inhalation methylPREDNISolone 4 MG TAKE 6 TABLETS O N DAY 1 DIRECTED ON PACKAGE AND DECREASE BY 1 TAB EACH DAY FOR A TOTAL OF 6 DAYS Oral Azithromycin 500 MG TAKE 1 TABLET BY CAROL TH EVERY DAY FOR 5 DAYS Oral Clopidogrel Bisulfate 75 MG 1 tablet Ora lly Once a day Xarelto 20 MG 1 tablet with food O rally Once a day Atorvastatin Calcium 10 MG TAKE 1 TABLET ONCE A DAY Orally Once a day amLODIPine Besylate 5 MG 1 tablet Orally Once a day Pending Test Test Name Order Date PROFILE, FASTING (COMPREHENSIVE METABOLI C) 04/29/2024 PSA, TOTAL 04/29/2024 CBC WITH AUTO DIFF 04/29/2024 Lipid Panel 04/29/2024 Next Appt Details Follow Up: 3 Months, Reason: OV Provider Name:Wally Carter , 04/13/2025 09:15:00 AM, [address] [place] [address] [address], [place], [address], Provider Name:Wally Carter , 09/28/2025 09:30:00 AM, [address] [place] [address] [address], [place], [phone], Progress Notes * Derek BOYEROB:1950 (74 yo M)Acc No.[id number]:04/29/2024 Progress Notes Patient: Anselmo Darinel BENSON Provider: Maria Carter MD :1950 A ge:74 Y S ex:Male Date:04/29/2024 Address[facility] Subjective: * Chief Complaints: * R ecent colonoscopyRecent episode of iinfluenzaSleep apneaObesityParoxysmal atrial fibrillationCoronary artery diseaseHearing lossLumbar radiculopathy * HPI: C OVID-19 Screening: Questions H ave you had any new onset fever, chills, cough, congestion, sore throat, shortness of breath, muscle aches? Y es Congestion, Cough stated longer than 48 hours * : The patient, a 74-year-old male, presented with symptoms of illness that he believes were contracted from his future son-in-law. The illness has affected everyone in his household. He has been taking a variety of medications including a Z Jim, an inhaler, steroids, Xarelto, Plavix, atorvastatin, and amlodipine. He is also on azithromycin for two more days to kill any bacteria. He has been using Mucinex as well. He has experienced bouts of dry heaving during the flu. He has also been experiencing back pain, which he describes as having good and bad days. The doctor noted a little redness and tiny wheezes in his upper respiratory area, but clear sounds in the lower area.He had a colonoscopy at [facility] January 14, 2024 that showed a tubular adenoma in the hepatic flexure. He has had no chest pain recently. He has had no episodes of rapid heart rate. He is feeling healthy and well. * ROS: G eneral/Constitutional: pain o nly normal aches and pains. C hills d enies.?Fatigue a dmits. F ever d enies. E NT: Decreased hearing i n both ears. R espiratory: Cough n on-productive. C ardiovascular: Chest pain with exertion d enies. D yspnea on exertion?denies. S hortness of breath d enies. G astrointestinal: Constipation o ccasional. D ecreased appetite d enies. D iarrhea d enies. H eartburn d enies. N ausea d [...] pain d enies. P sychiatric: Depressed mood w hich is mild. * Medical History: * Surgical History: r esection of lipoma renal biopsy fracture right thumb colonoscopy, Dr. Levy, adenomatous polyp transverse colon, Gastritis and adenomatous polyp hepatic flexure 2002crush injury right third finger at work 2011COLONOSCOPY 2012 OCTRight knee miniscus surgery 02/2015[place], L45 disc decomression 06/2016Cardiac catheterization and angioplasty with a stent LAD, [facility] 09/2019endoscopy and colonoscopy at [facility] 01/2024No history * Hospitalization/Major Diagno stic Procedure: [...] Payal 14 years. He was born in [place]. They have 3 children. 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 He stopped smoking over 20 years ago. * Medications: T akingamLODIPine Besylate 5 MG Tablet 1 tablet Orally Once a day Atorvastatin Calcium 10 MG Tablet TAKE 1 TABLET ONCE A DAY Orally Once a day Clopidogrel Bisulfate 75 MG Tablet 1 tablet Orally Once a day Xarelto 20 MG Tablet 1 tablet with food Orally Once a day Albuterol Sulfate HFA 108 (90 Base) MCG/ACT Aerosol Solution INHALE 2 PUFFS EVERY 6 HOURS NEEDED FOR SHORTNESS OF BREATH OR WHEEZING FOR 30 DAYS Inhalation Taking amLODIPine Besylate 5 MG Tablet 1 tablet Orally Once a day Taking Atorvastatin Calcium 10 MG Tablet TAKE 1 TABLET ONCE A DAY Orally Once a day Taking Clopidogrel Bisulfate 75 MG Tablet 1 tablet Orally Once a day Taking Xarelto 20 MG Tablet 1 tablet with food Orally Once a day Taking Albuterol Sulfate HFA 108 (90 Base) MCG/ACT Aerosol Solution INHALE 2 PUFFS EVERY 6 HOURS NEEDED FOR SHORTNESS OF BREATH OR WHEEZING FOR 30 DAYS Inhalation Not-Taking/PRNmethylPREDNISolone 4 MG Tablet Therapy Pack TAKE 6 TABLETS ON DAY 1 DIRECTED ON PACKAGE AND DECREASE BY 1 TAB EACH DAY FOR A TOTAL OF 6 DAYS Oral Azithromycin 500 MG Tablet TAKE 1 TABLET BY MOUTH EVERY DAY FOR 5 DAYS Oral Not-Taking/PRN methylPREDNISolone 4 MG Tablet Therapy Pack TAKE 6 TABLETS ON DAY 1 DIRECTED ON PACKAGE AND DECREASE BY 1 TAB EACH DAY FOR A TOTAL OF 6 DAYS Oral Not-Taking/PRN Azithromycin 500 MG Tablet TAKE 1 TABLET BY MOUTH EVERY DAY FOR 5 DAYS Oral DiscontinuedAzelastine HCl 0.1 % Solution 1 puff in each nostril Nasally Twice a day Claritin Nasacort Allergy 24HR Dexilant 60 MG Capsule Delayed Release 1 capsule Orally Once a day Medication List reviewed and reconciled with the patientDiscontinued Azelastine HCl 0.1 % Solution 1 puff in each nostril Nasally Twice a day Discontinued Claritin Discontinued Nasacort Allergy 24HR Discontinued Dexilant 60 MG Capsule Delayed Release 1 capsule Orally Once a day Medication List reviewed and reconciled with the patient * Allergies: L atexno[Allergies Verified] Objective: * Vitals: H t: 68, Wt:226, BMI:34.36, BP:142/90, HR:58, Temp:98.8, Wt-k.51. * Examination: G eneral Examination: GENERAL APPEARANCE: p leasant, well nourished, well developed, in no acute distress, calm and relaxed, obese, man. HEAD: a traumatic, normocephalic. EYES: e alisa, perrla, anicteric, conjugate. EARS: N ormal anatomy with hearing loss. NOSE: s eptum intact. ORAL CAVITY: n ormal, unremarkable. NECK/THYROID: n o jugular venous distention, no carotid bruit, thyroid normal. LYMPH NODES: n o enlarged lymph nodes,spleen normal. SKIN: n o suspicious lesions, anicteric. HEART: n o clicks, gallops, murmurs, or rubs, regular rhythm, S1, S2 normal, no s3, or vascular bruits. LUNGS: c lear to auscultation . BREASTS: no masses palpable bilaterally. ABDOMEN: b owel sounds normal, no ascites, no organomegaly, no mass, centripital obesity. RECTAL EXAM: n ot examined. MUSCULOSKELETAL: e xtremities unremarkable, no clubbing, cyanosis or edema. PERIPHERAL PULSES: n ormal. NEUROLOGIC: a lert and oriented, cranial nerves 2-12 grossly intact, deep tendon reflexes 2+ symmetrical, motor strength normal upper and lower extremities, sensory exam intact. PSYCH: a lert, oriented. Assessment: * Assessment: 1. C oronary artery disease of [place] artery of [place] heart with stable angina pectoris - I25.118 (Primary) N otes :He was admitted to [facility] last weekend for anginal chest pain. A stress test was unremarkable. He is now home. He'll be seen in the office in the near future after blood work. 2 . O ther and unspecified hyperlipidemia [...] relapse in times of stress. 6 . R estless leg syndrome - G25.81 N otes :He will continue on his current therapy. He finds it quite beneficial. 7 . P aroxysmal atrial fibrillation - I48.0 N otes :He remaiins anticoagulated. He is compliant with his medications. He has had paroxysms of atrial fibrillation recently. He spoke to the bank president who ordered a Holter monitor and gave him a follow-up appointment. 8 . H earing loss - H91.90 N otes :He has not noticed any change in his hearing. This problem will be followed carefully and if he experiences a loss and acuity he will be referred for amplification evaluation. 9 . A nticoagulation adequate - Z79.01 N otes :He has had no bleeding. Clopidogrel has been added to his regimen. 1 0. E nvironmental allergies - Z91.09 N otes :He continues to take his allergy medication. The pollen season has resolved and he is improved but he is chronically allergic with rhinitis. 1 1. B PH (benign prostatic hyperplasia) - N40.0 N otes :He arises from sleep once or twice a night to urinate. We reviewed lifestyle modification as a could reduce nocturia. 1 2. L ow testosterone - E29.1 N otes :He is not currently taking replacement. The value is being repeated. It is likely related to his obesity. Plan: * Treatment: 2. O besity L AB: PROFILE, FASTING (COMPREHENSIVE METABOLIC) L AB: PSA, TOTAL L AB: CBC WITH AUTO DIFF L AB: Lipid Panel * Procedure Codes: * Preventive Medicine: Counseling: C are goal follow-up plan: Counseling for abnormal BMI given Y es Above Normal BMI Follow-up D ietary management education, guidance, and counseling, Dietary needs education, Exercise promotion: strength training, Exercise promotion: stretching, Feeding regime, Giving encouragement to exercise, Lifestyle education regarding diet, Nutrition / feeding management, Nutrition therapy, Prescribed activity/exercise education, Prescribed diet education, Prescribed dietary intake, Special diet education, Weight monitoring , Intervention, Order not done: Medical or Other reason not done S moking/Tobacco Use Patient counseled on the dangers of tobacco use and urged to quit. 0 04/29/2024 * Follow Up: 3 Months (Reason: OV) * Images: * Sign off status: Completed true * Provider: Maria Carter MD Date: 0 04/29/2024 Generated for Ravindra petersen/Sonya/Revaitting on: 05/02/2024 01:42 PM EST History and Physical Notes * HPI (History of Present Illness) Category Sub-Category Detail Notes COVID-19 Screening Questions Have you had any new onset fever, chills, cough, congestion, sore throat, shortness of breath, muscle aches?: Yes Congestion, Cough stated longer than 48 hours Examination Category Sub-Category Detail Notes General Examination GENERAL APPEARANCE: pleasant , well nourished, well developed, in no acute distress, calm and relaxed, obese, man HEAD: atraumatic, normocep halic EYES: eomi, perrla, anicte luke, conjugate EARS: Normal anatomy with hearing loss NOSE: septum intact NECK/THYROID: no jugular venous di stention, no carotid bruit, thyroid normal HEART: no clicks, gallops, murmurs, or rubs, regular rhythm, S1, S2 normal, no s3, or vascular bruits LUNGS: clear to auscultatio n ABDOMEN: bowel sounds normal, no ascites, no organomegaly, no mass, centripital obesity NEUROLOGIC: alert and oriented, cranial nerves 2-12 grossly intact, deep tendon reflexes 2+ symmetrical, motor strength normal upper and lower extremities, sensory exam intact SKIN: no suspicious lesion s, anicteric PERIPHERAL PULSES: normal BREASTS: no masses palpable b ilaterally MUSCULOSKELETAL: extremities unremark able, no clubbing, cyanosis or edema LYMPH NODES: no enlarged lymph no ken,spleen normal RECTAL EXAM: not examined PSYCH: alert, oriented ORAL CAVITY: normal, unremarkable
--- OUTSIDE RECORDS SUMMARY | 2024-05-06 10:29 | XMS_ITS ---
Author Organization Wally Carter III, MD Address [address] [place] [address] [place] [address] Care Team Providers Care Counseling Services Director Name Role Phone Dr. Wally Carter III Primary Care Provider Medications Medication SIG (Take, Route, Frequency, Duration) Notes Start Date End Date Status Xarelto 20 MG 1 tablet with food O rally Once a day for 30 days 05/06/2024 Active Social History Sex Assigned At : Social History Observation Description Sex Assigned At Male Encounters Encounter Location Date Provider Diagnosis Wally Carter III, MD [address] [place] [address] [place] [address] 05/06/2024 Wally Carter Plan Of Treatment Medication Medication Name Sig Start Date Stop Date Notes Xarelto 20 MG 1 tablet with food O rally Once a day for 30 days 05/06/2024 Next Appt Details Provider Name:Wally Alstonrne , 04/13/2025 09:15:00 AM, [address] [facility] [address], [place], [address], Provider Name:Wally Carter , 09/28/2025 09:30:00 AM, [address] [facility] [address], [place], [address], Progress Notes * Derek HERNADEZOB:1950 (74 yo M)Acc No.[id number]:05/06/2024 Patient: Anselmo Darinel BENSON :1950 A ge:74 Y S ex:Male Address:[address] [place], [place] [address] [address] * Refills Start Xarelto Tablet, 20 MG, Orally, 30, 1 tablet with food, Once a day, 30 days, Refills=11 * true * Date: Generated for Ravindra petersen/Sonya/Michealsmitting on: 1 05/02/2024 01:42 PM EST
--- OUTSIDE RECORDS SUMMARY | 2024-07-27 05:45 | XMS_ITS ---
Author Organization Wally Carter III, MD Address [address] [place] [address] Care Team Providers Care Acting Instructor Name Role Phone Dr. Wally Carter III Primary Care Provider Allergies Allergen (clinical drug ingredient) Drug/Non Drug Allergy documented on EMR Reaction Allergy Type Onset Date Status Latex Latex Unknown Allergy Active REASON FOR VISIT Coronary artery disease, Hyperlipidemia, Sleep apnea, Obesity, Restless leg syndrome, Atrial fibrillation, Anticoagulation Medications Medication SIG (Take, Route, Frequency, Duration) Notes Start Date End Date Status Xarelto 20 MG 1 tablet with food Orally Once a day 05/06/2024 Active amLODIPine Besylate 5 MG 1 tablet Orally Once a day Active Atorvastatin Calcium 10 MG TAKE 1 TABLET ONCE A DAY Orally Once a day Active Clopidogrel Bisulfate 75 MG 1 tablet Ora lly Once a day Active methylPREDNISolone 4 MG TAKE 6 TABLETS O N DAY 1 DIRECTED ON PACKAGE AND DECREASE BY 1 TAB EACH DAY FOR A TOTAL OF 6 DAYS Oral Active Albuterol Sulfate HFA 108 (9 0 Base) MCG/ACT INHALE 2 PUFFS EVERY 6 HOURS NEEDED FOR SHORTNESS OF BREATH OR WHEEZING FOR 30 DAYS Inhalation Active Social History Tobacco Use: Social History [...] Non-User Ex-cigaret te smoker Vital Signs Temperature 97.9 degrees Fahrenheit 07/28/19 25 Blood pressure systolic 130 mm Hg 07/28/19 25 Blood pressure diastolic 60 mm Hg 025 Heart Rate 66 /min 07/27/2024 Respiratory Rate 16 /min 07/27/2024 Height 68 in 07/27/2024 Weight 229 lbs 07/27/2024 BMI 34.82 kg/m2 07/27/2024 Oximetry 98 % 07/27/2024 Encounters Encounter Location Date Provider Diagnosis Wally Carter III, MD [address] [place] [address] [address] [place], [place] [address] 07/27/2024 Wally Carter Other and unspecifie d hyperlipidemia E78.5 ; 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 A stress test was unremarkable. He is now home. He'll be seen in the office in the near future after blood work. 07/27/2024 Lumbar radiculopathy (ICD-10 - M54.16) His chronic low back pain continues and occasionally is severe but recently has been mild. No change in his regimen was made. 07/27/2024 Sleep apnea (ICD-10 - G47.30) He continues to use the CPAP. He occasionally struggles with some mask. 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 07/27/2024 GERD (gastroesophageal reflux disease) (ICD-10 - K21.9) His reflux is well controlled with current medications. 07/27/2024 Obesity (ICD-10 - E66.9) His body mass index is 34. He has gained 5 pounds. We have discussed his weight loss strategy and his diet and his nutrition. Continue to try lose weight at a rate of one half of a pound per week. 07/27/2024 Restless leg syndrom e (ICD-10 - G25.81) He will continue on his current therapy. He finds it quite beneficial. 07/27/2024 Former smoker (ICD-1 0 - Z87.891) He is highly motivated not to smoke. He has a plan for prevention of relapse in times of stress. 07/27/2024 Hearing loss (ICD-10 - H91.90) He has not noticed any change in his hearing. This problem will be followed carefully and if he experiences a loss and acuity he will be referred for amplification evaluation. Plan Of Treatment Medication Medication Name Sig Start Date Stop Date Notes Xarelto 20 MG 1 tablet with food O rally Once a day 05/06/2024 amLODIPine Besylate 5 MG 1 tablet Orally Once a day Atorvastatin Calcium 10 MG TAKE 1 TABLET ONCE A DAY Orally Once a day Clopidogrel Bisulfate 75 MG 1 tablet Ora lly Once a day methylPREDNISolone 4 MG TAKE 6 TABLETS O N DAY 1 DIRECTED ON PACKAGE AND DECREASE BY 1 TAB EACH DAY FOR A TOTAL OF 6 DAYS Oral Albuterol Sulfate HFA 108 (9 0 Base) MCG/ACT INHALE 2 PUFFS EVERY 6 HOURS NEEDED FOR SHORTNESS OF BREATH OR WHEEZING FOR 30 DAYS Inhalation Pending Test Test Name Order Date PROFILE, FASTING (COMPREHENSIVE METABOLI C) 07/27/2024 CBC w DIFF 07/27/2024 Lipid Panel 07/27/2024 Next Appt Details Follow Up: 3 Months, Reason: annual exam review labs Provider Name:Wally Carter , 04/13/2025 09:15:00 AM, [address] [facility] [facility], [place], [address], Provider Name:Wally Carter , 09/28/2025 09:30:00 AM, [address] [place] [address] [address], [place], [phone], Progress Notes * Herman HERNADEZKelsieOB:1950 (74 yo M)Acc No.[id number]:07/27/2024 Progress Notes Patient: Darinel FAM Provider: Maria Carter MD :1950 A ge:74 Y S ex:Male Date:07/27/2024 Address:[address] [place], [place] [id number] Subjective: * Chief Complaints: * C oronary artery diseaseHyperlipidemiaSleep apneaObesityRestless leg syndromeAtrial fibrillationAnticoagulation * HPI: C OVID-19 Screening: Yuly araiza returns for management of his numerous medical issues. He continues his efforts at weight loss and trying to consume a healthy low-cholesterol low-sodium low calorie diet. He continues to try to reduce his weight. He is using his CPAP but finds the mask uncomfortable.? He has had several PVCs lately. He has had a couple of episodes of atrial fibrillation. He has not had any bleeding. He rises from sleep 2 or 3 times a night to urinate. His back pain is recently minimal. ENT his went on a 22 mile bike ride yesterday and he experienced no shortness of breath with exertion or angina. He had a trace of edema in his right leg but none in the left which he says has been present since his surgery. Questions H ave you had any new onset fever, chills, cough, congestion, sore throat, shortness of breath, muscle aches? N o * ROS: G eneral/Constitutional: pain K nees and low back. C hills d enies. F atigue a dmits. F ever d enies. E NT: Decreased hearing d enies. R espiratory: Cough d enies. C ardiovascular: Chest pain with exertion d enies. D yspnea on exertion?denies. S hortness of breath d enies. G astrointestinal: Constipation d enies. D ecreased appetite d enies.?Diarrhea d enies. H eartburn d enies. N ausea d enies. R ectal bleeding?denies. V omiting d enies. H ematology: bruising d enies. p etechiae d enies. S wollen glands n one have been noted. G enitourinary: Frequent urination t wice a night. M usculoskeletal: Muscle aches d [...] injury right third finger at work 2012COLONOSCOPY 2012 OCTRight knee miniscus surgery 02/2015[place], L45 disc decomression 06/2016Cardiac catheterization and angioplasty with a stent LAD, [facility] 09/2019endoscopy and colonoscopy at [facility] 01/2024No history * Hospitalization/Major Diagno stic [...] Payal 14 years. He was born in [place]. They have 3 children. 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 He stopped smoking over 20 years ago. * Medications: T akingamLODIPine Besylate 5 MG Tablet 1 tablet Orally Once a day Atorvastatin Calcium 10 MG Tablet TAKE 1 TABLET ONCE A DAY Orally Once a day Clopidogrel Bisulfate 75 MG Tablet 1 tablet Orally Once a day methylPREDNISolone 4 MG Tablet Therapy Pack TAKE 6 TABLETS ON DAY 1 DIRECTED ON PACKAGE AND DECREASE BY 1 TAB EACH DAY FOR A TOTAL OF 6 DAYS Oral Albuterol Sulfate HFA 108 (90 Base) MCG/ACT Aerosol Solution INHALE 2 PUFFS EVERY 6 HOURS NEEDED FOR SHORTNESS OF BREATH OR WHEEZING FOR 30 DAYS Inhalation Xarelto 20 MG Tablet 1 tablet with food Orally Once a day Taking amLODIPine Besylate 5 MG Tablet 1 tablet Orally Once a day Taking Atorvastatin Calcium 10 MG Tablet TAKE 1 TABLET ONCE A DAY Orally Once a day Taking Clopidogrel Bisulfate 75 MG Tablet 1 tablet Orally Once a day Taking methylPREDNISolone 4 MG Tablet Therapy Pack TAKE 6 TABLETS ON DAY 1 DIRECTED ON PACKAGE AND DECREASE BY 1 TAB EACH DAY FOR A TOTAL OF 6 DAYS Oral Taking Albuterol Sulfate HFA 108 (90 Base) MCG/ACT Aerosol Solution INHALE 2 PUFFS EVERY 6 HOURS NEEDED FOR SHORTNESS OF BREATH OR WHEEZING FOR 30 DAYS Inhalation Taking Xarelto 20 MG Tablet 1 tablet with food Orally Once a day DiscontinuedAzithromycin 500 MG Tablet TAKE 1 TABLET BY MOUTH EVERY DAY FOR 5 DAYS Oral Xarelto 20 MG Tablet TAKE 1 TABLET BY MOUTH EVERY DAY WITH FOOD FOR 90 DAYS Medication List reviewed and reconciled with the patientDiscontinued Azithromycin 500 MG Tablet TAKE 1 TABLET BY MOUTH EVERY DAY FOR 5 DAYS Oral Discontinued Xarelto 20 MG Tablet TAKE 1 TABLET BY MOUTH EVERY DAY WITH FOOD FOR 90 DAYS Medication List reviewed and reconciled with the patient * Allergies: L atexno[Allergies Verified] Objective: * Vitals: H t: 68, Wt:229, BMI:34.82, BP:130/60, HR:66, RR:16, Temp:97.9, Oxygen sat %:98, Wt-k.87. * Examination: G eneral Examination: GENERAL APPEARANCE: p leasant, well nourished, well developed, in no acute distress, calm and relaxed, obese, man. HEAD: a traumatic, normocephalic. EYES: e alisa, perrla, anicteric, conjugate. EARS: n ormal. NOSE: s eptum intact. ORAL CAVITY: n ormal, unremarkable. NECK/THYROID: n o jugular venous distention, no carotid bruit, thyroid normal. LYMPH NODES: n o enlarged lymph nodes,spleen normal. SKIN: n o suspicious lesions, anicteric. HEART: n o clicks, gallops, murmurs, or rubs, irregular rhythm, S1, S2 normal, no s3, or vascular bruits. LUNGS: c lear to auscultation . BREASTS: no masses palpable bilaterally. ABDOMEN: b owel sounds normal, no ascites, no organomegaly, no mass. RECTAL EXAM: n ot examined. MUSCULOSKELETAL: e xtremities unremarkable, no clubbing, cyanosis or edema. PERIPHERAL PULSES: n ormal. NEUROLOGIC: a lert and oriented, cranial nerves 2-12 grossly intact, deep tendon reflexes 2+ symmetrical, motor strength normal upper and lower extremities, sensory exam intact. PSYCH: a lert, oriented. Assessment: * Assessment: 1. C oronary artery disease of teller artery of teller heart with stable angina pectoris - I25.118 (Primary) N otes :He was admitted to [facility] last weekend for anginal chest pain. A stress test was unremarkable. He is now home. He'll be seen in the office in the near future after blood work. 2 . O ther and unspecified hyperlipidemia - E78.5 N otes :His lipids are currently well controlled and no change in his regimen was made today. 3 . L umbar radiculopathy - M54.16 N otes :His chronic low back pain continues and occasionally is severe but recently has been mild. No change in his regimen was made. 4 . S leep apnea - G47.30 N otes :He continues to use the CPAP. He occasionally struggles with some mask. 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 5 . G ERD (gastroesophageal reflux disease) - K21.9 N otes :His reflux is well controlled with current medications. 6 . O besity - E66.9 N otes :His body mass index is 34. He has gained 5 pounds. We have discussed his weight loss strategy and his diet and his nutrition. Continue to try lose weight at a rate of one half of a pound per week. 7 . R estless leg syndrome - G25.81 N otes :He will continue on his current therapy. He finds it quite beneficial. 8 . F ormer smoker - Z87.891 N otes :He is highly motivated not to smoke. He has a plan for prevention of relapse in times of stress. 9 . H earing loss - H91.90 N otes :He has not noticed any change in his hearing. This problem will be followed carefully and if he experiences a loss and acuity he will be referred for amplification evaluation. Plan: * Treatment: 2. L umbar radiculopathy L AB: PROFILE, FASTING (COMPREHENSIVE METABOLIC) L AB: CBC w DIFF L AB: Lipid Panel 3. S leep apnea L AB: PROFILE, FASTING (COMPREHENSIVE METABOLIC) L AB: CBC w DIFF L AB: Lipid Panel 4. G ERD (gastroesophageal reflux disease) L AB: PROFILE, FASTING (COMPREHENSIVE METABOLIC) L AB: CBC w DIFF L AB: Lipid Panel 5. O thers Continue Xarelto Tablet, 20 MG, 1 tablet with food, Orally, Once a day. * Procedure Codes: 9 4760 MEASURE BLOOD OXYGEN LEVEL * Preventive Medicine: Counseling: C are goal follow-up plan: Counseling for abnormal BMI given Y es Above Normal BMI Follow-up D ietary management education, guidance, and counseling, Dietary needs education S moking/Tobacco Use Patient counseled on the dangers of tobacco use and urged to quit. 0 07/27/2024 * Follow Up: 3 Months (Reason: annual exam review labs) * Images: * Sign off status: Completed true * Provider: Maria Carter MD Date: 0 07/27/2024 Generated for Ravindra petersen/Sonya/Revaitting on: 1 05/02/2024 01:41 PM EST History and Physical Notes * HPI (History of Present Illness) Category Sub-Category Detail Notes COVID-19 Screening Questions Have you had any new onset fever, chills, cough, congestion, sore throat, shortness of breath, muscle aches?: No Examination Category Sub-Category Detail Notes General Examination GENERAL APPEARANCE: pleasant , well nourished, well developed, in no acute distress, calm and relaxed, obese, man HEAD: atraumatic, normocep halic EYES: eomi, perrla, anicte luke, conjugate EARS: normal NOSE: septum intact NECK/THYROID: no jugular venous di stention, no carotid bruit, thyroid normal HEART: no clicks, gallops, murmurs, or rubs, irregular rhythm, S1, S2 normal, no s3, or vascular bruits LUNGS: clear to auscultatio n ABDOMEN: bowel sounds normal, no ascites, no organomegaly, no mass NEUROLOGIC: alert and oriented, cranial nerves 2-12 [...]
--- OUTSIDE RECORDS SUMMARY | 2024-07-28 09:19 | XMS_ITS ---
Author Organization Wally Carter III, MD Address [address] [place] [address] Care Team Providers Care Ice Guard Skating Rink Name Role Phone Dr. Wally Carter III Primary Care Provider [phone] REASON FOR VISIT Message Social History Sex Assigned At : Social History Observation Description Sex Assigned At Male Encounters Encounter Location Date Provider Diagnosis Wally Carter III, MD [address] [place] [address] [place] [address] 07/28/2024 Wally Carter Plan Of Treatment Next Appt Details Provider Name:Wally Carter , 04/13/2025 09:15:00 AM, [address] [place] [address] [place], [address], Provider Name:Wally Carter , 09/28/2025 09:30:00 AM, [address] [place] [address] DR, [address], [place], [address], Progress Notes * Derek HERNADEZOB:1950 (74 yo M)Acc No.[id number]:07/28/2024 Patient: Darinel FAM :1950 A ge:74 Y S ex:Male Address:[address] [place] [address] * true * Date: Generated for Ravindra petersen/Sonya/Michealsmitting on: 05/02/2024 01:43 PM EST
--- OUTSIDE RECORDS SUMMARY | 2024-09-25 04:30 | XMS_ITS ---
Author Organization Wally Carter III, MD Address [address] [place] [address] Care Team Providers Care Data Architect Manager Name Role Phone Dr. Wally Carter III Primary Care Provider [phone] Allergies Allergen (clinical drug ingredient) Drug/Non Drug Allergy documented on EMR Reaction Allergy Type Onset Date Status No Known Food Allergy Unknown Drug Allergy Active Latex Latex Unknown Allergy Active REASON FOR VISIT Annual Exam Medications Medication SIG (Take, Route, Frequency, Duration) Notes Start Date End Date Status Atorvastatin Calcium 10 MG TAKE 1 TABLET ONCE A DAY Orally Once a day Active Nasacort Allergy 24HR 55 MCG/ACT 1 spray in each nostril Nasally Once a day Active Clopidogrel Bisulfate 75 MG 1 tablet Ora lly Once a day Active Albuterol Sulfate HFA 108 (90 Base) MCG/ACT INHALE 2 PUFFS EVERY 6 HOURS NEEDED FOR SHORTNESS OF BREATH OR WHEEZING FOR 30 DAYS Inhalation Active amLODIPine Besylate 5 MG 1 tablet Orally Once a day Active Xarelto 20 MG 1 tablet with food O rally Once a day 05/06/2024 Active Social History Tobacco Use: Social History Observation Description Date Details (start date - stop date) Former Smoker NA - NA Sex Assigned At : Social History Observation Description Sex Assigned At Male Tobacco Control (Standard) Question Answer Notes Tobacco use: Former smoker How long has it been since you last smoked? Grea ter than 10 years Additional Findings: Tobacco non-user Ex-cigaret te smoker AUDIT-C (Standard) Question Answer Notes Did you have a drink contain ing alcohol in the past year? Yes How often did you have six o r more drinks on one occasion in the past year? 2 to 4 times a month (2 points) How many drinks did you have on a typical day when you were drinking in the past year? 1 or 2 drinks (0 point) How often did you have a dri nk containing alcohol in the past year? Never (0 point) Points 2 Interpretation Negative Vital Signs Temperature 99.4 degrees Fahrenheit 09/26/19 25 Blood pressure systolic 137 mm Hg 09/26/19 25 Blood pressure diastolic 71 mm Hg 025 Heart Rate 56 /min 09/25/2024 Height 68 in 09/25/2024 Weight 222 lbs 09/25/2024 BMI 33.75 kg/m2 09/25/2024 Encounters Encounter Location Date Provider Diagnosis Wally Carter III, MD [address] [place] [address] [place] [address] 09/25/2024 Wally Carter Other and unspecifie d hyperlipidemia E78.5 ; Coronary artery disease of [place] artery of [place] heart with stable angina pectoris I25.118 ; Obesity E66.9 ; Sleep apnea G47.30 ; GERD (gastroesophageal reflux disease) K21.9 ; Environmental allergies Z91.09 ; Restless leg syndrome G25.81 ; Anticoagulation adequate Z79.01 ; Lumbar radiculopathy M54.16 ; BPH (benign prostatic hyperplasia) N40.0 and Former smoker Z87.891 Assessments Encounter Date Diagnosis (ICD Code) Assessment Notes Treat ment Notes Treatment Clinical Notes 09/25/2024 Other and unspecifie d hyperlipidemia (ICD-10 - E78.5) His lipids are currently well controlled and no change in his regimen was made today. 09/25/2024 Coronary artery disease of [place] artery of [place] heart with stable angina pectoris (ICD-10 - I25.118) He was admitted to [facility] last weekend for anginal chest pain. A stress test was unremarkable. He is now home. He'll be seen in the office in the near future after blood work. 09/25/2024 Obesity (ICD-10 - E66.9) He has lost 7 pounds and is working on more. We made a plan to lose weight at a rate of 1 pound per week. 09/25/2024 Sleep apnea (ICD-10 - G47.30) He continues to use the CPAP. He occasionally struggles with some mask. He was referred back to the company that supplies it and his innovation manager for more comfortable device. 09/25/2024 GERD (gastroesophageal reflux disease) (ICD-10 - K21.9) His reflux is well controlled with current medications. 09/25/2024 Environmental allergies (ICD-10 - Z91.09) He continues to take his allergy medication. The pollen season has resolved and he is improved but he is chronically allergic with rhinitis. 09/25/2024 Restless leg syndrom e (ICD-10 - G25.81) He will continue on his current therapy. He finds it quite beneficial. 09/25/2024 Anticoagulation adequate (ICD-10 - Z79.01) He has had no bleeding. Clopidogrel has been added to his regimen. 09/25/2024 Lumbar radiculopathy (ICD-10 - M54.16) His chronic low back pain continues and occasionally is severe but recently has been mild. No change in his regimen was made. 09/25/2024 BPH (benign prostati c hyperplasia) (ICD-10 - N40.0) He arises from sleep once or twice a night to urinate. We reviewed lifestyle modification as a could reduce nocturia. 09/25/2024 Former smoker (ICD-1 0 - Z87.891) He is highly motivated not to smoke. He has a plan for prevention of relapse in times of stress. Plan Of Treatment Medication Medication Name Sig Start Date Stop Date Notes Atorvastatin Calcium 10 MG TAKE 1 TABLET ONCE A DAY Orally Once a day Nasacort Allergy 24HR 55 MCG/ACT 1 spray in each nostril Nasally Once a day Clopidogrel Bisulfate 75 MG 1 tablet Orally Once a day Albuterol Sulfate HFA 108 (9 0 Base) MCG/ACT INHALE 2 PUFFS EVERY 6 HOURS NEEDED FOR SHORTNESS OF BREATH OR WHEEZING FOR 30 DAYS Inhalation amLODIPine Besylate 5 MG 1 tablet Orally Once a day Xarelto 20 MG 1 tablet with food O rally Once a day 05/06/2024 Pending Test Test Name Order Date PROFILE, FASTING (COMPREHENSIVE METABOLI C) 09/25/2024 CBC w DIFF 09/25/2024 Lipid Panel 09/25/2024 Next Appt Details Follow Up: 1 Week,3 Months, Reason: OV Provider Name:Wally Carter , 04/13/2025 09:15:00 AM, [address] [place] [address] [address], [place], [address], Provider Name:Wally Carter , 09/28/2025 09:30:00 AM, [address] [place] [address] [address], [place], [address], Progress Notes * Herman HERNADEZKelsieOB:1950 (74 yo M)Acc No.[id number]:09/25/2024 Progress Notes Patient: Anselmo BENSON Darinel Provider: Maria Carter MD :1950 A ge:74 Y S ex:Male Date:09/25/2024 Address:[address] [place], [place] [id number] Subjective: * Chief Complaints: * A nnual Exam * HPI: D epression Screening: He returns to the office at the age of 74 for his annual physical examination.He had a colonoscopy last January. It was normal. He has had no angina or chest pain. He and his have been taking 30 mile bicycle rides during which he has no chest pain or shortness of breath.? He is not aware of having had any atrial fibrillation. He rises from sleep about twice a night to urinate. He feels healthy and well today.Comprehensive blood work was done last July and has been reviewed with him. PHQ-9 L ittle interest or pleasure in doing things?Not at all F eeling down, depressed, or hopeless N ot at all T rouble falling or staying asleep, or sleeping too much M ore than half the days F eeling tired or having little energy S everal days P oor appetite or overeating N ot at all F eeling bad about yourself or that you are a failure, or have let yourself or your family down N ot at all T rouble concentrating on things, such as reading the newspaper or watching television N ot at all M oving or speaking so slowly that other people could have noticed; or the opposite, being so fidgety or restless that you have been moving around a lot more than usual N ot at all T houghts that you would be better off or of hurting yourself in some way N ot at all T otal Score 3 I nterpretation M inimal Depression C OVID-19 Screening: Questions H ave you had any new onset fever, chills, cough, congestion, sore throat, shortness of breath, muscle aches? N o S FRANCHESCA Questions: SDOH Questions I n the past year have you been worried about losing your housing? N o I n the past year have you or any family members you live with been unable to get any of the following when it was really needed? Check all that apply: N one F all Risk Screening: Fall History H ave you had any falls with injury in the past year? N o H ave you had two or more falls in the past year? N o F all Risk Assessment: N o falls in the past year * ROS: G eneral/Constitutional: pain o nly normal aches and pains. C hills d enies.?Fatigue a dmits. F ever d enies. E NT: Decreased hearing i n both ears. R espiratory: Cough d enies. C ardiovascular: [...] catheterization and angioplasty with a stent LAD, [facility] 09/2019endoscopy and colonoscopy at [facility] 01/2024No history * Hospitalization/Major Diagno stic Procedure: A trial fibrillation 02/2018No history * Family History: F ather: 73 yrs, cardiac disease, allergies,overweight, adult onset diabetes mellitus, diagnosed with DM. M other: alive 87 yrs, thyroid problems, migraines. S iblings: , prostate cancer. S pouse: alive. 3 brother(s) - healthy. 3 daughter(s) - healthy. . His father and 3 brothers all have allergies. He is not aware of any family inherited cancer syndromes. He is not aware of any family history of mental illness, substance use disorders or addictions. Middle brother of Prostate Cancer. * Social History: T obacco Use: T obacco Control (Standard) T obacco use: F ormer smoker H ow long has it been since you last smoked??Greater than 10 years A dditional Findings: Tobacco non-user E x-cigarette smoker D rugs/Alcohol: D rugs H ave you used drugs other than those for medical reasons in the past 12 months? N o D rug/Alcohol: A HARDIK-C (Standard) D id you have a drink containing alcohol in the past year? Y es H ow often did you have six or more drinks on one occasion in the past year? 2 to 4 times a month (2 points) H ow many drinks did you have on a typical day when you were drinking in the past year? 1 or 2 drinks (0 point) H ow often did you have a drink containing alcohol in the past year? N ever (0 point) P oints 2 I nterpretation N egative Yuly araiza has been to [place] 14 years. He was born in [place]. They have 3 children. 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 He stopped smoking over 20 years ago. * Medications: T akingNasacort Allergy 24HR 55 MCG/ACT Aerosol 1 spray in each nostril Nasally Once a day Xarelto 20 MG Tablet 1 tablet with food Orally Once a day amLODIPine Besylate 5 MG Tablet 1 tablet Orally Once a day Atorvastatin Calcium 10 MG Tablet TAKE 1 TABLET ONCE A DAY Orally Once a day Clopidogrel Bisulfate 75 MG Tablet 1 tablet Orally Once a day Albuterol Sulfate HFA 108 (90 Base) MCG/ACT Aerosol Solution INHALE 2 PUFFS EVERY 6 HOURS NEEDED FOR SHORTNESS OF BREATH OR WHEEZING FOR 30 DAYS Inhalation Taking Nasacort Allergy 24HR 55 MCG/ACT Aerosol 1 spray in each nostril Nasally Once a day Taking Xarelto 20 MG Tablet 1 tablet with food Orally Once a day Taking amLODIPine Besylate 5 MG Tablet 1 tablet Orally Once a day Taking Atorvastatin Calcium 10 MG Tablet TAKE 1 TABLET ONCE A DAY Orally Once a day Taking Clopidogrel Bisulfate 75 MG Tablet 1 tablet Orally Once a day Taking Albuterol Sulfate HFA 108 (90 Base) MCG/ACT Aerosol Solution INHALE 2 PUFFS EVERY 6 HOURS NEEDED FOR SHORTNESS OF BREATH OR WHEEZING FOR 30 DAYS Inhalation DiscontinuedmethylPREDNISolone 4 MG Tablet Therapy Pack TAKE 6 TABLETS ON DAY 1 DIRECTED ON PACKAGE AND DECREASE BY 1 TAB EACH DAY FOR A TOTAL OF 6 DAYS Oral Medication List reviewed and reconciled with the patientDiscontinued methylPREDNISolone 4 MG Tablet Therapy Pack TAKE 6 TABLETS ON DAY 1 DIRECTED ON PACKAGE AND DECREASE BY 1 TAB EACH DAY FOR A TOTAL OF 6 DAYS Oral Medication List reviewed and reconciled with the patient * Allergies: L atexNo Known Food Allergyno[Allergies Verified] Objective: * Vitals: H t: 68, Wt:222, BMI:33.75, BP:137/71, HR:56, Temp:99.4, Wt-k.7. * P ast Orders: I magcori:XR tibia fibula RT 2V (Order Date - 07/10/2024) (Performed Date - 07/10/2024) * Examination: G eneral Examination: GENERAL APPEARANCE: [...] Assessment: 1. 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 A stress test was unremarkable. He is now home. He'll be seen in the office in the near future after blood work. 2 . O ther and unspecified hyperlipidemia - E78.5 N otes :His lipids are currently well controlled and no change in his regimen was made today. 3 . O besity - E66.9 N otes :He has lost 7 pounds and is working on more. We made a plan to lose weight at a rate of 1 pound per week. 4 . S leep apnea - G47.30 N otes :He continues to use the CPAP. He occasionally struggles with some mask. He was referred back to the company that supplies it and his innovation manager for more comfortable device. 5 . G ERD (gastroesophageal reflux disease) - K21.9 N otes :His reflux is well controlled with current medications. 6 . E nvironmental allergies - Z91.09 N otes :He continues to take his allergy medication. The pollen season has resolved and he is improved but he is chronically allergic with rhinitis. 7 . R estless leg syndrome - G25.81 N otes :He will continue on his current therapy. He finds it quite beneficial. 8 . A nticoagulation adequate - Z79.01 N otes :He has had no bleeding. Clopidogrel has been added to his regimen. 9 . L umbar radiculopathy - M54.16 N otes :His chronic low back pain continues and occasionally is severe but recently has been mild. No change in his regimen was made. 1 0. B PH (benign prostatic hyperplasia) - N40.0 N otes :He arises from sleep once or twice a night to urinate. We reviewed lifestyle modification as a could reduce nocturia. 1 1. F ormer smoker - Z87.891 N otes :He is highly motivated not to smoke. He has a plan for prevention of relapse in times of stress. Plan: * Treatment: 2. O besity L AB: PROFILE, FASTING (COMPREHENSIVE METABOLIC) L AB: CBC w DIFF L AB: Lipid Panel 3. O thers Continue Xarelto Tablet, 20 MG, 1 tablet with food, Orally, Once a day. * Procedure Codes: * Preventive Medicine: Counseling: [...] tobacco use and urged to quit. 0 09/25/2024 * Follow Up: 1 Week,3 Months (Reason: OV) * Images: * Sign off status: Completed true * Provider: Maria Carter MD Date: 0 09/25/2024 Generated for Jeradi nicola/Sonya/eTransmitting on: 1 05/02/2024 01:42 PM EST History and Physical Notes * HPI (History of Present Illness) Category Sub-Category Detail Notes Depression Screening PHQ-9 Little inte rest or pleasure in doing things: Not at all Feeling down, depressed, or hopeless: No t at all Trouble falling or staying a sleep, or sleeping too much: More than half the days Feeling tired or having little energy: S everal days Poor appetite or overeating: Not at all Feeling bad about yourself o r that you are a failure, or have let yourself or your family down: Not at all Trouble concentrating on thi ngs, such as reading the newspaper or watching television: Not at all Moving or speaking so slowly that other people could have noticed; or the opposite, being so fidgety or restless that you have been moving around a lot more than usual: Not at all Thoughts that you would be b tulio off or of hurting yourself in some way: Not at all Total Score: 3 Interpretation: Minimal Depression Fall Risk Screening Fall History Have you had any falls with injury in the past year?: No Have you had two or more falls in the year?: No Fall Risk Assessment:: No falls in the year COVID-19 Screening Questions Have you had any new onset fever, chills, cough, congestion, sore throat, shortness of breath, muscle aches?: No SDOH Questions SDOH Questions In the past year have you been worried about losing your housing?: No In the past year have you or any family members you live with been unable to get any of the following when it was really needed? Check all that apply:: None Examination Category Sub-Category Detail Notes General Examination [...]
--- OUTSIDE RECORDS SUMMARY | 2024-10-02 04:15 | XMS_ITS ---
Author Organization Wally Carter III, MD Address [address] [facility] [place] [address] Care Team Providers Care Casualty Claims Supervisor Name Role Phone Dr. Wally Carter III Primary Care Provider [phone] Allergies Allergen (clinical drug ingredient) Drug/Non Drug Allergy documented on EMR Reaction Allergy Type Onset Date Status No Known Food Allergy Unknown Drug Allergy Active Latex Latex Unknown Allergy Active REASON FOR VISIT Dizziness, Coronary artery disease, Lumbar radiculopathy, Benign prosthetic hypertrophy, Anticoagulated, Paroxysmal atrial fibrillation Medications Medication SIG (Take, Route, Frequency, Duration) Notes Start Date End Date Status Albuterol Sulfate HFA 108 (90 Base) MCG/ACT INHALE 2 PUFFS EVERY 6 HOURS NEEDED FOR SHORTNESS OF BREATH OR WHEEZING FOR 30 DAYS Inhalation Active Nasacort Allergy 24HR 55 MCG/ACT 1 spray in each nostril Nasally Once a day Active Atorvastatin Calcium 10 MG TAKE 1 TABLET ONCE A DAY Orally Once a day Active Clopidogrel Bisulfate 75 MG 1 tablet Ora lly Once a day Active Xarelto 20 MG 1 tablet with food O rally Once a day 05/06/2024 Active amLODIPine Besylate [...] has it been since you last smoked? 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 His blood pressure today is adequate. Will be followed closely until he sees advertising teacher. 10/02/2024 Obesity (ICD-10 - E66.9) He has lost 7 pounds and is working on more. We made a plan to lose weight at a rate of 1 pound per week. 10/02/2024 Former smoker (ICD-1 0 - Z87.891) He is highly motivated not to smoke. He has a plan for prevention of relapse in times of stress. 10/02/2024 Sleep apnea (ICD-10 - G47.30) He continues to use the CPAP. He occasionally struggles with some mask. He was referred back to the company that supplies it and his tool smith for more comfortable device. 10/02/2024 GERD (gastroesophageal reflux disease) (ICD-10 - K21.9) His reflux is well controlled with current medications. 10/02/2024 Paroxysmal atrial fibrillation (ICD-10 - I48.0) He remaiins anticoagulated. He is compliant with his medications. He has had paroxysms of atrial fibrillation recently. He spoke to the advertising teacher who ordered a Holter monitor and gave him a follow-up appointment.He was in a regular sinus rhythm today. 10/02/2024 Anticoagulation adequate (ICD-10 - Z79.01) He has had no bleeding. Clopidogrel has been added to his regimen. 10/02/2024 Low testosterone (ICD-10 - E29.1) He is not currently taking replacement. The value is being repeated. It is likely related to his obesity. 10/02/2024 Hearing loss (ICD-10 - H91.90) He has not noticed any change in his hearing. This problem will be followed carefully and if he experiences a loss and acuity he will be referred for amplification evaluation. 10/02/2024 Lumbar radiculopathy (ICD-10 - M54.16) His chronic low back pain continues and occasionally is severe but recently has been mild. No change in his regimen was made. Plan Of Treatment Medication Medication Name Sig Start Date Stop Date Notes Albuterol Sulfate HFA 108 (9 0 Base) MCG/ACT INHALE 2 PUFFS EVERY 6 HOURS NEEDED FOR SHORTNESS OF BREATH OR WHEEZING FOR 30 DAYS Inhalation Nasacort Allergy 24HR 55 MCG/ACT 1 spray in each nostril Nasally Once a day Atorvastatin Calcium 10 MG TAKE 1 TABLET ONCE A DAY Orally Once a day Clopidogrel Bisulfate 75 MG 1 tablet Orally Once a day Xarelto 20 MG 1 tablet with food O rally Once a day 05/06/2024 amLODIPine Besylate 5 MG 1 tablet Orally Once a day Next Appt Details Follow Up: 5 W, Reason: OV Provider Name:Wally Carter , 04/13/2025 09:15:00 AM, [address] [place] [address] [address], [place], [address], Provider Name:Wally Carter , 09/28/2025 09:30:00 AM, [address] [place] [address] [address], [place], [address], Progress Notes * Derek HERNADEZOB:1950 (74 yo M)Acc No.[id number]:10/02/2024 Progress Notes Patient: Darinel FAM Provider: Maria Carter MD :1950 A ge:74 Y S ex:Male Date:10/02/2024 [facility] Subjective: * Chief Complaints: * D izzinessCoronary artery diseaseLumbar radiculopathyBenign prosthetic hypertrophyAnticoagulatedParoxysmal atrial fibrillation * HPI: C OVID-19 Screening: On his last visit he said that the amlodipine was making him dizzy and he started. He has stopped the amlodipine and felt much better having returned to normal. He has not been taking it since his last visit. He comes in today to manage her his blood pressure. Without the amlodipine he still maintains a normal blood pressure. I instructed him to discuss this issue with the advertising teacher. Questions H ave you had any new onset fever, chills, cough, congestion, sore throat, shortness of breath, muscle aches? N o * ROS: G eneral/Constitutional: pain o nly normal aches and pains. C hills d enies.?Fatigue a dmits. F ever d enies. E NT: Decreased hearing d enies. R espiratory: Cough d enies. C ardiovascular: Chest pain with exertion r elieved with nitroglycerine.?Dyspnea on exertion d enies. S hortness of breath d enies. G [...] catheterization and angioplasty with a stent LAD, [facility] 09/[facility]/[place]No history * Hospitalization/Major Diagno stic Procedure: [...] dditional Findings: Tobacco non-user E x-cigarette smoker Yuly araiza has been to Payal 14 years. He was born in [place]. They have 3 children. 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 He stopped smoking over 20 years ago. * Medications: T akingXarelto 20 MG Tablet 1 tablet with food [...] BREATH OR WHEEZING FOR 30 DAYS Inhalation Nasacort Allergy 24HR 55 MCG/ACT Aerosol 1 spray in each nostril Nasally Once a day Medication List reviewed and reconciled with the patientTaking Xarelto 20 MG Tablet 1 tablet with [...] in each nostril Nasally Once a day Medication List reviewed and reconciled with the patient * Allergies: L atexNo Known Food Allergyno[Allergies Verified] Objective: * Vitals: H t: 68, Wt:221, BMI:33.6, BP:120/75, HR:51, Temp:98.6, Wt-k.24. * P ast Orders: I maging:XR tibia fibula RT 2V (Order Date - 07/10/2024) (Performed Date - 07/10/2024) * Examination: G eneral Examination: GENERAL APPEARANCE: p leasant, well nourished, well developed, in no acute distress, calm and relaxed: obese: man. HEAD: a traumatic, normocephalic. EYES: e [...] sounds normal, no ascites, no organomegaly, no mass: centripital obesity. RECTAL EXAM: n ot examined. MUSCULOSKELETAL: e xtremities unremarkable, no clubbing, cyanosis or edema. PERIPHERAL PULSES: n ormal. NEUROLOGIC: a lert and oriented, cranial nerves 2-12 grossly intact, deep tendon reflexes 2+ symmetrical, motor strength normal upper and lower extremities, sensory exam intact. PSYCH: a lert, oriented. Assessment: * Assessment: 1. C oronary artery disease of kiana artery of kiana heart with stable angina pectoris - I25.118 (Primary) N otes :He wishes to remain off of the amlodipine which was given to him by the advertising teacher. His blood pressure today is adequate. Will be followed closely until he sees advertising teacher. 2 . O ther and unspecified hyperlipidemia - E78.5 N otes :His lipids are currently well controlled and no change in his regimen was made today. 3 . O besity - E66.9 N otes :He has lost 7 pounds and is working on more. We made a plan to lose weight at a rate of 1 pound per week. 4 . F ormer smoker - Z87.891 N otes :He is highly motivated not to smoke. He has a plan for prevention of relapse in times of stress. 5 . S leep apnea - G47.30 N otes :He continues to use the CPAP. He occasionally struggles with some mask. He was referred back to the company that supplies it and his tool smith for more comfortable device. 6 . G ERD (gastroesophageal reflux disease) - K21.9 N otes :His reflux is well controlled with current medications. 7 . P aroxysmal atrial fibrillation - I48.0 N otes :He remaiins anticoagulated. He is compliant with his medications. He has had paroxysms of atrial fibrillation recently. He spoke to the advertising teacher who ordered a Holter monitor and gave him a follow-up appointment.He was in a regular sinus rhythm today. 8 . A nticoagulation adequate - Z79.01 N otes :He has had no bleeding. Clopidogrel has been added to his regimen. 9 . L ow testosterone - E29.1 N otes :He is not currently taking replacement. The value is being repeated. It is likely related to his obesity. 1 0. H earing loss - H91.90 N otes :He has not noticed any change in his hearing. This problem will be followed carefully and if he experiences a loss and acuity he will be referred for amplification evaluation. 1 1. L umbar radiculopathy - M54.16 N otes :His chronic low back pain continues and occasionally is severe but recently has been mild. No change in his regimen was made. Plan: * Treatment: 2. O thers Continue Xarelto Tablet, 20 MG, [...] tobacco use and urged to quit. 0 10/02/2024 * Follow Up: 5 W (Reason: OV) * Images: * Sign off status: Completed true * Provider: Maria Carter MD Date: 0 10/02/2024 Generated for Ravindra petersen/Sonya/Revaitting on: 1 05/02/2024 01:42 PM EST History and Physical Notes * HPI (History of Present Illness) Category Sub-Category Detail Notes COVID-19 Screening Questions Have you had any new onset fever, chills, cough, congestion, sore throat, shortness of breath, muscle aches?: No Examination Category Sub-Category Detail Notes General Examination GENERAL APPEARANCE: pleasant , well nourished, well developed, in no acute distress, calm and relaxed: obese: man HEAD: atraumatic, normocep halic EYES: eomi, perrla, anicte luke, conjugate EARS: normal NOSE: septum intact NECK/THYROID: no jugular venous di stention, no carotid bruit, thyroid normal HEART: no clicks, gallops, murmurs, or rubs, regular rhythm, S1, S2 normal, no s3, or vascular bruits LUNGS: clear to auscultatio n ABDOMEN: bowel sounds normal, no ascites, no organomegaly, no mass: centripital obesity NEUROLOGIC: alert and oriented, cranial [...]
--- OUTSIDE RECORDS SUMMARY | 2024-10-16 11:45 | XMS_ITS ---
Author Organization Wally Carter III, MD Address [address] [place] [address] Care Team Providers Care Pensionholder Information Clerk Name Role Phone Dr. Wally Carter III Primary Care Provider Allergies Allergen (clinical drug ingredient) Drug/Non Drug Allergy documented on EMR Reaction Allergy Type Onset Date Status No Known Food Allergy Unknown Drug Allergy Active Latex Latex Unknown Allergy Active REASON FOR VISIT New Concern Medications Medication SIG (Take, Route, Frequency, Duration) Notes Start Date End Date Status Clopidogrel Bisulfate 75 MG 1 tablet Ora lly Once a day Active Atorvastatin Calcium 10 MG TAKE 1 TABLET ONCE A DAY Orally Once a day Active Nasacort Allergy 24HR 55 MCG/ACT 1 spray in each nostril Nasally Once a day Active Albuterol Sulfate HFA 108 (90 Base) MCG/ACT INHALE 2 PUFFS EVERY 6 HOURS NEEDED FOR SHORTNESS OF BREATH OR WHEEZING FOR 30 DAYS Inhalation Active Xarelto 20 MG 1 tablet with [...] Additional Findings: Tobacco non-user Ex-cigaret te smoker Encounters Encounter Location Date Provider Diagnosis Wally Carter III, MD [address] [place] [address] 10/16/2024 Wally Carter Other and unspecifie d hyperlipidemia E78.5 Assessments Encounter Date Diagnosis (ICD Code) Assessment Notes Treat ment Notes Treatment Clinical Notes 10/16/2024 Other and unspecifie d hyperlipidemia (ICD-10 - E78.5) His lipids are currently well controlled and no change in his regimen was made today. Plan Of Treatment Medication Medication Name Sig Start Date Stop Date Notes Clopidogrel Bisulfate 75 MG 1 tablet Orally Once a day Atorvastatin Calcium 10 MG TAKE 1 TABLET ONCE A DAY Orally Once a day Nasacort Allergy 24HR 55 MCG/ACT 1 spray in each nostril Nasally Once a day Albuterol Sulfate HFA 108 (9 0 Base) MCG/ACT INHALE 2 PUFFS EVERY 6 HOURS NEEDED FOR SHORTNESS OF BREATH OR WHEEZING FOR 30 DAYS Inhalation Xarelto 20 MG 1 tablet with food O rally Once a day 05/06/2024 amLODIPine Besylate 5 MG 1 tablet Orally Once a day Next Appt Details Provider Name:Wally Carter , 04/13/2025 09:15:00 AM, [address] [facility] [place], [address], Provider Name:Wally Carter , 09/28/2025 09:30:00 AM, [address] [facility] [place], [address], Progress Notes * Devin BOYER:1950 (74 yo M)Acc No.[id number]:10/16/2024 Progress Notes Patient: Darinel FAM Provider: Maria Carter MD :1950 A ge:74 Y S ex:Male Date:10/16/2024 [facility] Subjective: * Chief Complaints: * 1 . New Concern. * HPI: C OVID-19 Screening: Questions H [...] have been noted. G enitourinary: Frequent urination d enies. M usculoskeletal: Muscle aches d enies. P ainful joints d enies. S ciatica d enies. W eakness d enies. S kin: Itching d enies. R robel d enies. S kin lesion(s)?denies. N eurologic: Difficulty speaking d enies. D izziness d enies.?Headache d enies. L ow back pain d enies. P sychiatric: Depressed mood d enies. * Medical History: E nvironmental allergies, Bilateral shoulder pain, Obstructive sleep apnea, GERD, Restless leg syndrome, ED, Nephrotic syndrome age 5, Farsighted, wears bifocals, Hyperlipidemia, Onychomycosis, Episodic erectile dysfunction, Adenomatous colonic polyp 2001, Obesity, Hearing loss, low testosterone level June 2013, Hypertension, Atrial fibrillation, Anticoagulated, Coronary artery disease, angioplasty 2019, Patient had bronchitis many years ago., Back pain: Patient reports ongoing back pain, Flu: Patient currently experiencing flu symptoms, Adenomatous polyp hepatic flexure colonoscopy, [facility] 2023. * Surgical History: r esection of lipoma , renal biopsy , fracture right thumb , colonoscopy, Dr. Levy, adenomatous polyp transverse colon, Gastritis and adenomatous polyp hepatic flexure 2001, crush injury right third finger at work 2011, COLONOSCOPY 2012, Right knee miniscus surgery 02/2015, [facility], L45 disc decomression 06/2016, Cardiac catheterization and angioplasty with a stent LAD, [facility] 09/2019, endoscopy and colonoscopy at [facility] 01/2024, No history . * Hospitalization/Major Diagno stic Procedure: A trial fibrillation 02/2018, No history . * Family History: F ather: 74 yrs, [...] Payal 14 years. He was born in [place]. They have 3 children. 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 He stopped smoking over 20 years ago. * Medications: T aking Xarelto 20 MG Tablet 1 tablet with food Orally Once a day , Taking amLODIPine Besylate 5 MG Tablet 1 tablet Orally Once a day , Taking Atorvastatin Calcium 10 MG Tablet TAKE 1 TABLET ONCE A DAY Orally Once a day , Taking Clopidogrel Bisulfate 75 MG Tablet 1 tablet Orally Once a day , Taking Albuterol Sulfate HFA 108 (90 Base) MCG/ACT Aerosol Solution INHALE 2 PUFFS EVERY 6 HOURS NEEDED FOR SHORTNESS OF BREATH OR WHEEZING FOR 30 DAYS Inhalation , Taking Nasacort Allergy 24HR 55 MCG/ACT Aerosol 1 spray in each nostril Nasally Once a day , Medication List reviewed and reconciled with the patient * Allergies: L atex, No Known Food Allergy. Objective: * Vitals: * Examination: G eneral Examination: GENERAL APPEARANCE: p reina, well nourished, well developed, in no acute distress, calm and relaxed. HEAD: a traumatic, normocephalic. EYES: e alisa, [...] a lert, oriented. Assessment: * Assessment: 1. O ther and unspecified hyperlipidemia - E78.5 N otes :His lipids are currently well controlled and no change in his regimen was made today. Plan: * Treatment: 2. O thers Continue Xarelto Tablet, 20 MG, 1 tablet with food, Orally, Once a day. * Images: * The named appointment provid er may or may not be the originator of this progress note, and it is not deemed complete until electronically signed by the appointment provider. Sign off status: Pending * Provider: Maria Carter MD Date: 0 10/16/2024 Generated for Ravindra petersen/Sonya/James on: 05/02/2024 01:42 PM EST History and Physical Notes * HPI (History of Present Illness) Category Sub-Category Detail Notes COVID-19 Screening Questions Have you had any new onset fever, chills, cough, congestion, sore throat, shortness of breath, muscle aches?: No Examination Category Sub-Category Detail Notes General Examination GENERAL APPEARANCE: pleasant , well nourished, well developed, in no acute distress, calm and relaxed HEAD: atraumatic, normocep halic EYES: eomi, perrla, [...]
--- OUTSIDE RECORDS SUMMARY | 2024-11-06 04:00 | XMS_ITS ---
Author Organization Wally Carter III, MD Address [address] [place] [address] Care Team Providers Care Marketing Operations Associate Name Role Phone Dr. Wally Carter III Primary Care Provider Allergies Allergen (clinical drug ingredient) Drug/Non Drug Allergy documented on EMR Reaction Allergy Type Onset Date Status No Known Food Allergy Unknown Drug Allergy Active Latex Latex Unknown Allergy Active REASON FOR VISIT hypertension, hyperlipidemiqa, gerd, obesity, allergies Medications Medication SIG (Take, Route, Frequency, Duration) Notes Start Date End Date Status Nasacort Allergy 24HR 55 MCG/ACT 1 spray in each nostril Nasally Once a day Active Albuterol Sulfate HFA 108 (90 Base) MCG/ACT INHALE 2 PUFFS EVERY 6 HOURS NEEDED FOR SHORTNESS OF BREATH OR WHEEZING FOR 30 DAYS Inhalation Active Clopidogrel Bisulfate 75 MG 1 tablet [...] has it been since you last smoked? 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 We made a plan to lose weight at a rate of 1 pound per week. 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 His blood pressure today is adequate. Will be followed closely until he sees animal ride attendant. 11/06/2024 Former smoker (ICD-1 0 - Z87.891) He is highly motivated not to smoke. He has a plan for prevention of relapse in times of stress. 11/06/2024 Other and unspecifie d hyperlipidemia (ICD-10 - E78.5) His lipids are currently well controlled and no change in his regimen was made today. 11/06/2024 Sleep apnea (ICD-10 - G47.30) He continues to use the CPAP. He occasionally struggles with some mask. He was referred back to the company that supplies it and his child care director for more comfortable device. 11/06/2024 GERD (gastroesophageal reflux disease) (ICD-10 - K21.9) His reflux is well controlled with current medications. 11/06/2024 Restless leg syndrom e (ICD-10 - G25.81) He will continue on his current therapy. He finds it quite beneficial. 11/06/2024 Environmental allergies (ICD-10 - Z91.09) He continues to take his allergy medication. The pollen season has resolved and he is improved but he is chronically allergic with rhinitis. 11/06/2024 Hearing loss (ICD-10 - H91.90) He has not noticed any change in his hearing. This problem will be followed carefully and if he experiences a loss and acuity he will be referred for amplification evaluation. 11/06/2024 Low testosterone (ICD-10 - E29.1) He is not currently taking replacement. The value is being repeated. It is likely related to his obesity. 11/06/2024 Paroxysmal atrial fibrillation (ICD-10 - I48.0) He remaiins anticoagulated. He is compliant with his medications. He has had paroxysms of atrial fibrillation recently. He spoke to the animal ride attendant who ordered a Holter monitor and gave him a follow-up appointment.He was in a regular sinus rhythm today. 11/06/2024 Anticoagulation adequate (ICD-10 - Z79.01) He has had no bleeding. Clopidogrel has been added to his regimen. 11/06/2024 Lumbar radiculopathy (ICD-10 - M54.16) His chronic low back pain continues and occasionally is severe but recently has been mild. No change in his regimen was made. Plan Of Treatment Medication Medication Name Sig Start Date Stop Date Notes Nasacort Allergy 24HR 55 MCG/ACT 1 spray in each nostril Nasally Once a day Albuterol Sulfate HFA 108 (9 0 Base) MCG/ACT INHALE 2 PUFFS EVERY 6 HOURS NEEDED FOR SHORTNESS OF BREATH OR WHEEZING FOR 30 DAYS Inhalation Clopidogrel Bisulfate 75 MG 1 tablet Orally Once a day Atorvastatin Calcium 10 MG TAKE 1 TABLET ONCE A DAY Orally Once a day amLODIPine Besylate 5 MG 1 tablet Orally Once a day Xarelto 20 MG 1 tablet with food O rally Once a day 05/06/2024 Pending Test Test Name Order Date PSA, TOTAL 11/06/2024 Testosterone, Total 11/06/2024 Next Appt Details Follow Up: 2 Months, Reason: OV Provider Name:Wally Carter , 04/13/2025 09:15:00 AM, [address] [place] [address] [address], [place], [address], Provider Name:Wally Carter , 09/28/2025 09:30:00 AM, [address] [place] [address] [address], [place], [address], Progress Notes * Herman HERNADEZKelsieOB:1950 (74 yo M)Acc No.[id number]:11/06/2024 Progress Notes Patient: Darinel FAM Provider: Maria Carter MD :1950 A ge:74 Y S ex:Male Date:11/06/2024 Address:[address] [place], [place] [id number] Subjective: * Chief Complaints: * H ypertensionHyperlipidemiqaGerdObesityAllergies * HPI: C OVID-19 Screening: . He returns for blood pressure evaluation and medical management. He has had no angina palpitations or dyspnea on exertion since his last visit. He has been checking his blood pressure at home daily and it so to an uncomfortable level without the amlodipine. He has resumed the amlodipine and his blood pressure is now at its target. We discussed this today and decided the drug should continue. He has been back on it now for 7 days.He continues has attempted weight loss and is exercising regularly. Questions H ave you had any new [...] V omiting d enies. H ematology: bruising O ccasional. p etechiae d enies. S wollen glands [...] catheterization and angioplasty with a stent LAD, [facility] 09/2019endoscopy and colon[facility] at [facility] 01/2024No history * Hospitalization/Major [...] Payal 14 years. He was born in [place]. They have 3 children. 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 He stopped smoking over 20 years [...] Verified] Objective: * Vitals: H t: 68, Wt:217, BMI:32.99, BP:138/69, HR:57, Temp:98.6, Wt-k.43. * Examination: G eneral Examination: GENERAL APPEARANCE: p leasant, well nourished, well developed, in no acute distress, calm and relaxed: obese: man. HEAD: a traumatic, normocephalic. EYES: e alisa, perrla, anicteric, conjugate. EARS: : Normal anatomy with bilateral hearing loss. NOSE: s eptum intact. ORAL [...] Assessment: 1. C oronary artery disease of [place] artery of [place] heart with stable angina pectoris - I25.118 (Primary) N otes :He wishes to remain off of the amlodipine which was given to him by the animal ride attendant. His blood pressure today is adequate. Will be followed closely until he sees animal ride attendant. 2 . O besity - E66.9 N otes :He has lost 4 more pounds and is working on more. We made a plan to lose weight at a rate of 1 pound per week. 3 . F ormer smoker - Z87.891 N otes :He is highly motivated not to smoke. He has a plan for prevention of relapse in times of stress. 4 . O ther and unspecified hyperlipidemia - E78.5 N otes :His lipids are currently well controlled and no change in his regimen was made today. 5 . S leep apnea - G47.30 N otes :He continues to use the CPAP. He occasionally struggles with some mask. He was referred back to the company that supplies it and his child care director for more comfortable device. 6 . G ERD (gastroesophageal reflux disease) - K21.9 N otes :His reflux is well controlled with current medications. 7 . R estless leg syndrome - G25.81 N otes :He will continue on his current therapy. He finds it quite beneficial. 8 . E nvironmental allergies - Z91.09 N otes :He continues to take his allergy medication. The pollen season has resolved and he is improved but he is chronically allergic with rhinitis. 9 . H earing loss - H91.90 N otes :He has not noticed any change in his hearing. This problem will be followed carefully and if he experiences a loss and acuity he will be referred for amplification evaluation. 1 0. L ow testosterone - E29.1 N otes :He is not currently taking replacement. The value is being repeated. It is likely related to his obesity. 1 1. P aroxysmal atrial fibrillation - I48.0 N otes :He remaiins anticoagulated. He is compliant with his medications. He has had paroxysms of atrial fibrillation recently. He spoke to the animal ride attendant who ordered a Holter monitor and gave him a follow-up appointment.He was in a regular sinus rhythm today. 1 2. A nticoagulation adequate - Z79.01 N otes :He has had no bleeding. Clopidogrel has been added to his regimen. 1 3. L umbar radiculopathy - M54.16 N otes :His chronic low back pain continues and occasionally is severe but recently has been mild. No change in his regimen was made. Plan: * Treatment: * Labs: * L ab: PSA, TOTAL L ab: Testosterone, Total * Procedure Codes: * Preventive Medicine: Counseling: [...] tobacco use and urged to quit. 0 11/06/2024 * Follow Up: 2 Months (Reason: OV) * Images: * Sign off status: Completed true * Provider: Maria Carter MD Date: 0 11/06/2024 Generated for Jeradi nicola/Sonya/eTransmitting on: 1 05/02/2024 01:43 PM EST History and Physical Notes * [...] EYES: eomi, perrla, anicte luke, conjugate EARS: : Normal anatomy wit h bilateral hearing loss NOSE: septum intact NECK/THYROID: no [...]
--- OUTSIDE RECORDS SUMMARY | 2024-12-29 04:45 | XMS_ITS ---
Author Organization Wally Carter III, MD Address [address] [place] [address] Care Team Providers Care Civil Cadd Technician Name Role Phone Dr. Wally Carter III Primary Care Provider Allergies Allergen (clinical drug ingredient) Drug/Non Drug Allergy documented on EMR Reaction Allergy Type Onset Date Status No Known Food Allergy Unknown Drug Allergy Active Latex Latex Unknown Allergy Active REASON FOR VISIT Acute right shoulder pain, Coronary artery disease, Hyperlipidemia, Sleep apnea, Restless leg syndrome, Allergies, Obesity, Hearing loss, Paroxysmal atrial fibrillation, Chronic anticoagulation, Lumbar radiculopathy Medications Medication SIG (Take, Route, [...] A DAY Orally Once a day Active Xarelto 20 MG 1 tablet with food O rally Once a day 05/06/2024 Active Omeprazole 20 MG TAKE 1 CAPSULE 1/2 T O 1 HOUR BEFORE MORNING MEAL ORALLY ONCE A DAY 90 DAYS Oral Active Nasacort Allergy 24HR 55 MCG/ACT 1 spray in each nostril Nasally Once a day Active Social History Tobacco [...] Additional Findings: Tobacco non-user Ex-cigaret te smoker Problems Problem Type SNOMED Code ICD Code Onset Dates Problem Status W/U Status Risk Notes Problem Obesity (972361538) Obesity (278.00) Active confirmed He is under the supervision with the bariatric physician who is helping him lose weight. He has lost 5 pounds since last October and will continue to do so gradually. I recommended regular exercise. Problem [id number] Episodic memory loss (R41.3) Active confirmed He does not papo ear to have dementia at this time. He does not appear to have cognitive dysfunction. He has episodic loss of memory which may be within normal limits. This will be observed if it progresses he will have neuropsychological testing and neurology consultation and head CT. Vital Signs Temperature 98.1 degrees Fahrenheit 12/30/19 25 Blood pressure systolic 140 mm Hg 12/30/19 25 Blood pressure diastolic 74 mm Hg 025 Heart Rate 53 /min 12/29/2024 Height 68 in 12/29/2024 Weight 215 lbs 12/29/2024 BMI 32.69 kg/m2 12/29/2024 Encounters Encounter Location Date Provider Diagnosis Wally Carter III, MD [address] [place] [address] [address] [place], [place] [address] 12/29/2024 Wally Carter Former smoker Z87.89 1 ; Coronary artery disease of umk[place] artery of umkumiut heart with stable angina pectoris I25.118 ; Obesity 278.00 ; BPH (benign prostatic hyperplasia) N40.0 ; Lumbar radiculopathy M54.16 ; Elevated hemidiaphragm J98.6 ; Anticoagulation adequate Z79.01 and Episodic memory loss R41.3 Assessments Encounter Date Diagnosis (ICD Code) Assessment Notes T reatment Notes Treatment Clinical Notes 12/29/2024 Former smoker (ICD-10 - Z87.891) He is highly motivated not to smoke. He has a plan for prevention of relapse in times of stress. 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 His blood pressure today is adequate. Will be followed closely until he sees web site project manager. 12/29/2024 Obesity (ICD9-CM - 278.00) He is under the supervision with the bariatric physician who is helping him lose weight. He has lost 5 pounds since last October and will continue to do so gradually. I recommended regular exercise. 12/29/2024 BPH (benign prostatic hyperplasia) (ICD-10 - N40.0) He arises from sleep once or twice a night to urinate. We reviewed lifestyle modification as a could reduce nocturia. 12/29/2024 Lumbar radiculopathy (ICD-10 - M54.16) His chronic low back pain continues and occasionally is severe but recently has been mild. No change in his regimen was made. 12/29/2024 Elevated hemidiaphragm (ICD-10 - J98.6) This was noted on a chest x-ray July 27, 2023 at [facility] emergency room. The report says it is unchanged compared to prior examinations. His pulmonary color consultant, Dr. Campbell, has ordered a CT scan of the chest. 12/29/2024 Anticoagulation adequate (ICD-10 - Z79.01) He has had no bleeding. Clopidogrel has been added to his regimen. 12/29/2024 Episodic memory loss (ICD-10 - R41.3) He does not appear to have dementia at this time. He does not appear to have cognitive dysfunction. He has episodic loss of memory which may be within normal limits. This will be observed if it progresses he will have neuropsychological testing and neurology consultation and head CT. Plan Of Treatment Medication Medication Name Sig [...] ONCE A DAY Orally Once a day Xarelto 20 MG 1 tablet with food O rally Once a day 05/06/2024 Omeprazole 20 MG TAKE 1 CAPSULE 1/2 T O 1 HOUR BEFORE MORNING MEAL ORALLY ONCE A DAY 90 DAYS Oral Nasacort Allergy 24HR 55 MCG/ACT 1 spray in each nostril Nasally Once a day Pending Test Test Name Order Date PROFILE, FASTING (COMPREHENSIVE METABOLI C) 12/29/2024 PSA, TOTAL 12/29/2024 CBC w DIFF 12/29/2024 Lipid Panel 12/29/2024 Next Appt Details Follow Up: 4 Months, Reason: ov review labs Provider Name:Wally Carter , 04/13/2025 09:15:00 AM, [address] [place] [address] [address], [place], [address], Provider Name:Wally Carter , 09/28/2025 09:30:00 AM, [address] [place] [address] [address], [place], [address], Progress Notes * SATYA DerekOB:1950 (74 yo M)Acc No.[id number]:12/29/2024 Progress Notes Patient: Anselmo ANGUIANOMAURY Darinel Provider: Maria Carter MD :1950 A ge:74 Y S ex:Male Date:12/29/2024 Address:[address] [place] [address] [id number] Subjective: * Chief Complaints: * A cute right shoulder painCoronary artery diseaseHyperlipidemiaSleep apneaRestless leg syndromeAllergiesObesityHearing lossParoxysmal atrial fibrillationChronic anticoagulationLumbar radiculopathy * HPI: C OVID-19 Screening: Yuly araiza returns for medical management of multiple issues. His main complaint is pain in his right shoulder. The pain is localized to the lateral aspect of the head of the humerus and the biceps muscle which he believes he tore. He has been to orthopedic surgery and was found to have a torn rotator cuff. They recommended physical therapy. He does not wish to have surgery on the shoulder. He and his told me today that they're concerned about failing memory. He forgets things which his has no trouble remembering. On testing his memory seem to be intact. This complaint will be followed over time and evaluated if it persists or worsens. He denies any shortness of breath or recent angina. He is involved in an exercise program of hiking and biking. His low back pain is minimal.He is using his CPAP machine successfully. Questions H ave you had any new onset fever, chills, cough, congestion, sore throat, shortness of breath, muscle aches? N o * ROS: G eneral/Constitutional: pain r ight shoulder. C hills d enies. F atigue?admits. F ever d enies. E NT: Decreased [...] Muscle aches d enies. P ainful joints r ight shoulder. S ciatica d enies. W eakness d [...] injury right third finger at work 2011COLONOSCOPY 2012Right knee miniscus surgery 02/2015[place], L45 disc decomression 06/2016Cardiac catheterization and angioplasty with a stent LAD, [facility] 09/2019endoscopy and colonoscopy at [facility] 01/2024No history * Hospitalization/Major Diagno stic [...] Payal 14 years. He was born in [place]. They have 3 children. 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 He stopped smoking over 20 years [...] in each nostril Nasally Once a day Omeprazole 20 MG Capsule Delayed Release TAKE 1 CAPSULE 1/2 TO 1 HOUR BEFORE MORNING MEAL ORALLY ONCE A DAY 90 DAYS Oral Medication List reviewed and reconciled [...] each nostril Nasally Once a day Taking Omeprazole 20 MG Capsule Delayed Release TAKE 1 CAPSULE 1/2 TO 1 HOUR BEFORE MORNING MEAL ORALLY ONCE A DAY 90 DAYS Oral Medication List reviewed and reconciled with the patient * Allergies: L atexNo Known Food Allergyno[Allergies Verified] Objective: * Vitals: H t: 68, Wt:215, BMI:32.69, BP:140/74, HR:53, Temp:98.1, Wt-k.52. * P ast Orders: Lab:Lipid Panel * Collection Date 12/26/2024 06/26/2023 12/11/2022 Collection Time 09:28 AM 10:07 AM 10:35 AM Order Date 12/26/2024 06/26/2023 12/11/2022 Triglycerides 44 (Ref Range: <150 mg/dL) 56 (Ref Range: <150 mg/dL) 55 (Ref Range: <150 mg/dL) Cholesterol 140 (Ref Range: <200 mg/dL) 144 (Ref Range: <200 mg/dL) 137 (Ref Range: <200 mg/dL) LDL Cholesterol Calculated 73 (Ref Range: <100 mg/dL) 76 (Ref Range: <100 mg/dL) 71 (Ref Range: <100 mg/dL) HDL Cholesterol 59 (Ref Range: >40 mg/dL) 57 (Ref Range: >40 mg/dL) 55 (Ref Range: >40 mg/dL) * Lab:Comprehensive [place]. Pane l Fast * Collection Date 12/26/2024 06/26/2023 12/11/2022 Collection Time 09:28 AM 10:07 AM 10:35 AM Order Date 12/26/2024 06/26/2023 12/11/2022 Sodium 142 (Ref Range: 135-145 mmol/L) 139 (Ref Range: 135-145 mmol/L) 140 (Ref Range: 135-145 mmol/L) Bilirubin Total 0.8 (Ref Range: 0.0-1.0 mg/dL) 1.0 (Ref Range: 0.0-1.0 mg/dL) 0.8 (Ref Range: 0.0-1.0 mg/dL) Aspartate Amino Transferase 35 (Ref Range: 5-37 U/L) 31 (Ref Range: 5-37 U/L) 25 (Ref Range: 5-37 U/L) Alanine Aminotransferase 33 (Ref Range: 0-40 U/L) 29 (Ref Range: 0-40 U/L) 22 (Ref Range: 0-40 U/L) Total Protein 6.5 (Ref Range: 6.5-8.0 g/dL) 6.8 (Ref Range: 6.5-8.0 g/dL) 6.4 L (Ref Range: 6.5-8.0 g/dL) Albumin Level 4.1 (Ref Range: 3.5-5.0 g/dL) 3.9 (Ref Range: 3.5-5.0 g/dL) 3.9 (Ref Range: 3.5-5.0 g/dL) Alkaline Phosphatase 98 (Ref Range: 39-117 U/L) 117 (Ref Range: 39-117 U/L) 98 (Ref Range: 39-117 U/L) Potassium 4.8 (Ref Range: 3.3-5.1 mmol/L) 5.0 (Ref Range: 3.3-5.1 mmol/L) 3.8 (Ref Range: 3.3-5.1 mmol/L) Chloride 105 (Ref Range: 96-108 mmol/L) 104 (Ref Range: 96-108 mmol/L) 104 (Ref Range: 96-108 mmol/L) Carbon Dioxide 28 (Ref Range: 22-29 mmol/L) 29 (Ref Range: 22-29 mmol/L) 27 (Ref Range: 22-29 mmol/L) Anion Gap 14 (Ref Range: 12-20) 11 L (Ref Range: 12-20) 13 (Ref Range: 12-20) Blood Urea Nitrogen 20 H (Ref Range: 9-16 mg/dL) 18 H (Ref Range: 9-16 mg/dL) 17 H (Ref Range: 9-16 mg/dL) Creatinine 0.95 (Ref Range: 0.5-1.4 mg/dL) 1.07 (Ref Range: 0.5-1.4 mg/dL) 0.87 (Ref Range: 0.5-1.4 mg/dL) Estimated Glomerular Filt Rate > 60 > 60 > 60 Glucose Fasting 107 H (Ref Range: 60-99 mg/dL) 104 H (Ref Range: 60-99 mg/dL) 94 (Ref Range: 60-99 mg/dL) Calcium 9.0 (Ref Range: 8.4-10.2 mg/dL) 9.2 (Ref Range: 8.4-10.2 mg/dL) 9.1 (Ref Range: 8.4-10.2 mg/dL) * Lab:Complete Blood Count Aut o Diff * Collection Date 12/26/2024 06/26/2023 12/11/2022 Collection Time 09:28 AM 10:07 AM 10:35 AM Order Date 12/26/2024 06/26/2023 12/11/2022 White Blood Count 5.2 (Ref Range: 4.8-10.8 X10*3/uL) 6.2 (Ref Range: 4.8-10.8 X10*3/uL) 5.5 (Ref Range: 4.8-10.8 X10*3/uL) Red Blood Count 4.96 (Ref Range: 4.60-5.80 X10*6/uL) 5.03 (Ref Range: 4.60-5.80 X10*6/uL) 4.88 (Ref Range: 4.60-5.80 X10*6/uL) Hemoglobin 14.1 (Ref Range: 14.0-18.0 g/dl) 14.1 (Ref Range: 14.0-18.0 g/dl) 13.6 L (Ref Range: 14.0-18.0 g/dl) Hematocrit 42.9 (Ref Range: 42.0-52.0 %) 44.1 (Ref Range: 42.0-52.0 %) 42.9 (Ref Range: 42.0-52.0 %) Mean Corpuscular Volume 86.5 (Ref Range: 80.0-98.0 fL) 87.7 (Ref Range: 80.0-98.0 fL) 87.9 (Ref Range: 80.0-98.0 fL) Mean Corpuscular Hemoglobin 28.4 (Ref Range: 27.0-33.0 pg) 28.0 (Ref Range: 27.0-33.0 pg) 27.9 (Ref Range: 27.0-33.0 pg) Mean Corpuscular HGB Conc 32.9 (Ref Range: 31.0-36.0 g/dl) 32.0 (Ref Range: 31.0-36.0 g/dl) 31.7 (Ref Range: 31.0-36.0 g/dl) Red Cell Distribution Width 14.6 (Ref Range: 11.0-16.0 %) 13.6 (Ref Range: 11.0-16.0 %) 14.0 (Ref Range: 11.0-16.0 %) Platelet Count 195 (Ref Range: 160-400 X10*3/uL) 193 (Ref Range: 160-400 X10*3/uL) 165 (Ref Range: 160-400 X10*3/uL) Mean Platelet Volume 10.4 (Ref Range: 9.4-12.4 fL) 10.8 (Ref Range: 9.4-12.4 fL) 11.7 (Ref Range: 9.4-12.4 fL) Neutrophils Percent Auto 64.6 (Ref Range: 45-73 %) 66.2 (Ref Range: 45-73 %) 62.7 (Ref Range: 45-73 %) Imm Gran Pct Auto 0.4 (Ref Range: 0.0-0.4 %) 0.3 (Ref Range: 0.0-0.4 %) 0.2 (Ref Range: 0.0-0.4 %) Lymphocytes Percent Auto 22.8 (Ref Range: 20-40 %) 21.4 (Ref Range: 20-40 %) 24.8 (Ref Range: 20-40 %) Monocytes Percent Auto 9.3 (Ref Range: 2-11 %) 8.3 (Ref Range: 2-11 %) 8.5 (Ref Range: 2-11 %) Eosinophils Percent Auto 2.1 (Ref Range: 0-4 %) 3.2 (Ref Range: 0-4 %) 3.1 (Ref Range: 0-4 %) Basophils Percent Auto 0.8 (Ref Range: 0-2 %) 0.6 (Ref Range: 0-2 %) 0.7 (Ref Range: 0-2 %) NRBC Pct Auto 0.0 (Ref Range: 0.0-0.2 /100WBC) 0.0 (Ref Range: 0.0-0.2 /100WBC) 0.0 (Ref Range: 0.0-0.2 /100WBC) Neutrophils Absolute Auto 3.4 (Ref Range: 2.0-8.3 x10*3/uL) 4.1 (Ref Range: 2.0-8.3 x10*3/uL) 3.5 (Ref Range: 2.0-8.3 x10*3/uL) Imm Gran Abs Auto 0.02 (Ref Range: 0.00-0.03 X10*3/uL) 0.02 (Ref Range: 0.00-0.03 X10*3/uL) 0.01 (Ref Range: 0.00-0.03 X10*3/uL) Lymphocytes Absolute Auto 1.2 (Ref Range: 1.2-4.9 X10*3/uL) 1.3 (Ref Range: 1.2-4.9 X10*3/uL) 1.4 (Ref Range: 1.2-4.9 X10*3/uL) Monocytes Absolute Auto 0.5 (Ref Range: 0.1-1.2 X10*3/uL) 0.5 (Ref Range: 0.1-1.2 X10*3/uL) 0.5 (Ref Range: 0.1-1.2 X10*3/uL) Eosinophils Absolute Auto 0.1 (Ref Range: 0.0-0.4 X10*3/uL) 0.2 (Ref Range: 0.0-0.4 X10*3/uL) 0.2 (Ref Range: 0.0-0.4 X10*3/uL) Basophils Absolute Auto 0.0 (Ref Range: 0.0-0.2 X10*3/uL) 0.0 (Ref Range: 0.0-0.2 X10*3/uL) 0.0 (Ref Range: 0.0-0.2 X10*3/uL) NRBC Abs Auto 0.000 (Ref Range: 0.0-0.012 X10*3/uL) 0.000 (Ref Range: 0.0-0.012 X10*3/uL) 0.000 (Ref Range: 0.0-0.012 X10*3/uL) * Lab:Prostate Specific Antige n * Collection Date 12/26/2024 06/26/2023 12/11/2022 Collection Time 09:28 AM 10:07 AM 10:35 AM Order Date 12/26/2024 06/26/2023 12/11/2022 Prostate Specific Antigen 0.85 (Ref Range: <0.05-4.0 ng/mL) 1.96 (Ref Range: <0.05-4.0 ng/mL) 1.03 (Ref Range: <0.05-4.0 ng/mL) * Examination: G eneral Examination: GENERAL APPEARANCE: [...] e xtremities unremarkable, no clubbing, cyanosis or edema, Pain to elevation of right shoulder. PERIPHERAL PULSES: n ormal. NEUROLOGIC: a lert and oriented, cranial nerves 2-12 grossly intact, deep tendon reflexes 2+ symmetrical, motor strength normal upper and lower extremities, sensory exam intact, Memory of recent and remote events seems intact.. PSYCH: a lert, oriented. Assessment: * Assessment: 1. C oronary artery disease of umkumi[place] artery of [place] heart with stable angina pectoris - I25.118 (Primary) N otes :He wishes to remain off of the amlodipine which was given to him by the web site project manager. His blood pressure today is adequate. Will be followed closely until he sees web site project manager. 2 . F ormer smoker - Z87.891 N otes :He is highly motivated not to smoke. He has a plan for prevention of relapse in times of stress. 3 . O besity - 278.00 N otes :He is under the supervision with the bariatric physician who is helping him lose weight. He has lost 5 pounds since last October and will continue to do so gradually. I recommended regular exercise. 4 . B PH (benign prostatic hyperplasia) - N40.0 N otes :He arises from sleep once or twice a night to urinate. We reviewed lifestyle modification as a could reduce nocturia. 5 . L umbar radiculopathy - M54.16 N otes :His chronic low back pain continues and occasionally is severe but recently has been mild. No change in his regimen was made. 6 . E levated hemidiaphragm - J98.6 N otes :This was noted on a chest x-ray July 27, 2023 at [facility] emergency room. The report says it is unchanged compared to prior examinations. His pulmonary color consultant, Dr. Campbell, has ordered a CT scan of the chest. 7 . A nticoagulation adequate - Z79.01 N otes :He has had no bleeding. Clopidogrel has been added to his regimen. 8 . E pisodic memory loss - R41.3 N otes :He does not appear to have dementia at this time. He does not appear to have cognitive dysfunction. He has episodic loss of memory which may be within normal limits. This will be observed if it progresses he will have neuropsychological testing and neurology consultation and head CT. Plan: * Treatment: 2. O thers Continue Xarelto Tablet, 20 MG, 1 tablet with food, Orally, Once a day; C ontinue amLODIPine Besylate Tablet, 5 MG, 1 tablet, Orally, Once a day; C ontinue Atorvastatin Calcium Tablet, 10 MG, TAKE 1 TABLET ONCE A DAY, Orally, Once a day; C ontinue Clopidogrel Bisulfate Tablet, 75 MG, 1 tablet, Orally, Once a day; C ontinue Albuterol Sulfate HFA Aerosol Solution, 108 (90 Base) MCG/ACT, INHALE 2 PUFFS EVERY 6 HOURS NEEDED FOR SHORTNESS OF BREATH OR WHEEZING FOR 30 DAYS, Inhalation; C ontinue Nasacort Allergy 24HR Aerosol, 55 MCG/ACT, 1 spray in each nostril, Nasally, Once a day. * Labs: * L ab: PROFILE, FASTING (COMPREHENSIVE METABOLIC) L ab: PSA, TOTAL L ab: CBC w DIFF L ab: Lipid Panel * Procedure Codes: * Preventive [...] of tobacco use and urged to quit. 1 * Follow Up: 4 Months (Reason: ov review labs) * Images: * Sign off status: Completed true * Provider: Maria Carter MD Date: Generated for Ravindra petersen/Sonya/eTruhtsmitting on: 05/02/2024 01:42 PM EST History and [...] normal upper and lower extremities, sensory exam intact, Memory of recent and remote events seems intact. SKIN: no suspicious lesion s, anicteric PERIPHERAL PULSES: normal BREASTS: no masses palpable b ilaterally MUSCULOSKELETAL: extremities unremark able, no clubbing, cyanosis or edema, Pain to elevation of right shoulder LYMPH NODES: no enlarged lymph no ken,spleen normal RECTAL EXAM: not examined PSYCH: alert, oriented ORAL CAVITY: normal, unremarkable
--- OUTSIDE RECORDS SUMMARY | 2025-02-10 08:30 | XMS_ITS ---
Author Organization Wally Carter III, MD Address [address] [place] [address] Care Team Providers Care Travel Ticketing Reviewer Name Role Phone Dr. Wally Carter III Primary Care Provider Allergies Allergen (clinical drug ingredient) Drug/Non Drug Allergy documented on EMR Reaction Allergy Type Onset Date Status No Known Food Allergy Unknown Drug Allergy Active Latex Latex Unknown Allergy Active Reason For Referral Reason Urgent Appointment Consult and Treat Diagnosis 1 Tinnitus, left ear ( H93.12) Diagnosis 2 Unspecified perforat ion of tympanic membrane, left ear (H72.92) Referral Organization Wally Carter III, MD Referring Provider First Name Wally Referring Provider Last Name Raul Referring Provider Speciality Internal M edicine Referred Provider [facility], [facility], [facility] Referred Provider Specialty Otolaryngolo gy General Notes Marci Colleen 02/10/2025 04:30:03 PM > Referral, cover sheet and progress note faxed to Urgent line Referral Priority Urgent REASON FOR VISIT Left ear crackling noise x 1 week, Perforation left eardrum, Hyperlipidemia, Restless leg syndrome,Obesity, Paroxysmal atrial fibrillation, Anticoagulation, Coronary artery disease, Benign prostatichypertrophy, Lumbar radiculopathy Medications Medication SIG (Take, Route, Frequency, Duration) Notes Start Date End Date Status Clopidogrel Bisulfate 75 MG 1 tablet Ora lly Once a day Active amLODIPine Besylate 5 [...] ONCE A DAY 90 DAYS Oral Active Albuterol Sulfate HFA 108 (90 Base) [...] non-user Ex-cigaret te smoker Vital Signs Temperature 99.7 degrees Fahrenheit 02/11/20 25 Blood pressure systolic 133 mm Hg 02/11/20 25 Blood pressure diastolic 71 mm Hg 025 Heart Rate 74 /min 02/10/2025 Height 68 in 02/10/2025 Weight 218 lbs 02/10/2025 BMI 33.14 kg/m2 02/10/2025 Encounters Encounter Location Date Provider Diagnosis Wally Carter III, MD [address] [place] [address] [address] [place], [place] [address] 02/10/2025 Wally Carter Coronary artery dise ase of [place] artery of [place] heart with stable angina pectoris I25.118 ; Tinnitus, left ear H93.12 ; Hearing loss H91.90 ; Low testosterone E29.1 ; Former smoker Z87.891 ; Paroxysmal atrial fibrillation I48.0 ; Anticoagulation adequate Z79.01 ; Lumbar radiculopathy M54.16 and Obesity 278.00 Assessments Encounter Date Diagnosis (ICD Code) Assessment Notes Treat ment Notes Treatment Clinical Notes 02/10/2025 Coronary artery 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 He is doing well. He has had no angina or palpitations or decompensation of congestive heart failure. No change in his medication was necessary today. He is up-to-date with cardiology. 02/10/2025 Tinnitus, left ear (ICD-10 - H93.12) He is experiencing the new onset of tinnitus and was found to have a new perforation in the left ear. He has been referred to ENT for definitive diagnosis and treatment. He has been to ENT in the past for bilateral hearing loss and has bilateral hearing aids. 02/10/2025 Hearing loss (ICD-10 - H91.90) He has not noticed any change in his hearing. This problem will be followed carefully and if he experiences a loss and acuity he will be referred for amplification evaluation. 02/10/2025 Low testosterone (ICD-10 - E29.1) He is not currently taking replacement. The value is being repeated. It is likely related to his obesity. 02/10/2025 Former smoker (ICD-1 0 - Z87.891) He is highly motivated not to smoke. He has a plan for prevention of relapse in times of stress. 02/10/2025 Paroxysmal atrial fibrillation (ICD-10 - I48.0) He remaiins anticoagulated. He is compliant with his medications. He has had paroxysms of atrial fibrillation recently. He spoke to the weight shifter who ordered a Holter monitor and gave him a follow-up appointment.He was in a regular sinus rhythm today. 02/10/2025 Anticoagulation adequate (ICD-10 - Z79.01) He has had no bleeding. Clopidogrel has been added to his regimen. 02/10/2025 Lumbar radiculopathy (ICD-10 - M54.16) His chronic low back pain continues and occasionally is severe but recently has been mild. No change in his regimen was made. 02/10/2025 Obesity (ICD9-CM - 278.00) He is under the supervision with the bariatric physician who is helping him lose weight. He has lost 5 pounds since last October and will continue to do so gradually. I recommended regular exercise. Plan Of Treatment Medication Medication Name Sig Start Date Stop Date Notes Clopidogrel Bisulfate 75 MG 1 tablet Orally Once a day amLODIPine Besylate 5 MG 1 tablet Orally Once a day Atorvastatin Calcium 10 MG TAKE 1 TABLET ONCE A DAY Orally Once a day Xarelto 20 MG 1 tablet with food O rally Once a day 05/06/2024 Omeprazole 20 MG TAKE 1 CAPSULE 1/2 T O 1 HOUR BEFORE MORNING MEAL ORALLY ONCE A DAY 90 DAYS Oral Albuterol Sulfate HFA 108 (9 0 Base) MCG/ACT INHALE 2 PUFFS EVERY 6 HOURS NEEDED FOR SHORTNESS OF BREATH OR WHEEZING FOR 30 DAYS Inhalation Nasacort Allergy 24HR 55 MCG/ACT 1 spray in each nostril Nasally Once a day Referrals Referral Date Details 02/10/2025 02/10/2025, Urgent A ppointment Consult and Treat, of [facility] Next Appt Details Follow Up: As Scheduled, Emma son: OV Provider Name:Wally Carter , 04/13/2025 09:15:00 AM, [address] [place] [address] [address], [place], [address], Provider Name:Wally Carter , 09/28/2025 09:30:00 AM, [address] [place] [address] [address], [place], [address], Progress Notes * Derek HERNADEZOB:1950 (74 yo M)Acc No.[id number]:02/10/2025 Patient: Anselmo BENSON Darinel Provider: Maria Carter MD :1950 A ge:74 Y S ex:Male Date:02/10/2025 [facility] [facility] Subjective: * Chief Complaints: * L eft ear crackling noise x 1 weekPerforation left eardrumHyperlipidemiaRestless leg syndromeObesityParoxysmal atrial fibrillationAnticoagulationCoronary artery diseaseBenign prostatic hypertrophyLumbar radiculopathy * HPI: C OVID-19 Screening: He comes in for a same-day visit with a complaint of several days of a crackling noise in his left ear. The right ear is normal. His hearing iloss is unchanged and has not worsened. There is no discharge from the ear. Upon examination there was some scarring on the left eardrum with a moderate size perforation in the upper drum. The right ear showed some scarring but was otherwise normal. The noise is described as a high-pitched sound that is present without change in intensity night and day. This was consistent with tinnitus and we discussed this at some length. He is referred to ENT because of the perforation in the eardrum and the tinnitus and the history of hearing loss. He is allowed to continue to wear his hearing aids. Questions H ave you had any new onset fever, chills, cough, congestion, sore throat, shortness of breath, muscle aches? N o * ROS: G eneral/Constitutional: pain L umbar spine, otherwise only normal aches and pains. C hills d enies. F atigue a [...] enies.?Headache d enies. L ow back pain t hat is chronic. P sychiatric: Depressed mood d enies. * Medical History: * Surgical History: r esection of lipoma renal biopsy fracture right thumb colonoscopy, Dr. Bacon, adenomatous polyp transverse colon, Gastritis and adenomatous polyp hepatic flexure 2002crush injury right third finger at work 2011COLONOSCOPY 2012 OCTRight knee miniscus surgery 02/2015[place], L45 disc decomression 06/2016Cardiac catheterization and angioplasty with a stent LAD, [facility] 09/2019endoscopy and colonoscopy at [facility] 01/2024No history * Hospitalization/Major Diagno stic Procedure: [...] Payal 14 years. He was born in [place]. They have 3 children. 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 He stopped smoking over 20 years [...] Verified] Objective: * Vitals: H t: 68, Wt:218, BMI:33.14, BP:133/71, HR:74, Temp:99.7, Wt-k.88. * Examination: G eneral Examination: GENERAL APPEARANCE: p leasant, well nourished, well developed, in no acute distress, calm and relaxed: obese: man. HEAD: a traumatic, normocephalic. EYES: e alisa, perrla, anicteric, conjugate. EARS: bilateral hearing loss, right eardrum mild scarring otherwise normal, left eardrum mild scarring perforation superior membrane, no other abnormality little cerumen. NOSE: s eptum intact. ORAL CAVITY: n [...] a lert, oriented. Assessment: * Assessment: 1. T innitus, left ear - H93.12 (Primary) N otes :He is experiencing the new onset of tinnitus and was found to have a new perforation in the left ear. He has been referred to ENT for definitive diagnosis and treatment. He has been to ENT in the past for bilateral hearing loss and has bilateral hearing aids. 2 . C oronary artery disease of [place] artery of [place] heart with stable angina pectoris - I25.118 N otes :His blood pressure is 133/71 without the amlodipine. He is doing well. He has had no angina or palpitations or decompensation of congestive heart failure. No change in his medication was necessary today. He is up-to-date with cardiology. 3 . H earing loss - H91.90 N otes :He has not noticed any change in his hearing. This problem will be followed carefully and if he experiences a loss and acuity he will be referred for amplification evaluation. 4 . L ow testosterone - E29.1 N otes :He is not currently taking replacement. The value is being repeated. It is likely related to his obesity. 5 . F ormer smoker - Z87.891 N otes :He is highly motivated not to smoke. He has a plan for prevention of relapse in times of stress. 6 . P aroxysmal atrial fibrillation - I48.0 N otes :He remaiins anticoagulated. He is compliant with his medications. He has had paroxysms of atrial fibrillation recently. He spoke to the weight shifter who ordered a Holter monitor and gave him a follow-up appointment.He was in a regular sinus rhythm today. 7 . A nticoagulation adequate - Z79.01 N otes :He has had no bleeding. Clopidogrel has been added to his regimen. 8 . L umbar radiculopathy - M54.16 N otes :His chronic low back pain continues and occasionally is severe but recently has been mild. No change in his regimen was made. 9 . O besity - 278.00 N otes :He is under the supervision with the bariatric physician who is helping him lose weight. He has lost 5 pounds since last October and will continue to do so gradually. I recommended regular exercise. Plan: * Treatment: 2. C oronary artery disease of [place] artery of [place] heart with stable angina pectoris Continue Omeprazole Capsule Delayed Release, 20 MG, TAKE 1 CAPSULE 1/2 TO 1 HOUR BEFORE MORNING MEAL ORALLY ONCE A DAY 90 DAYS, Oral. 3. O thers Continue Xarelto Tablet, 20 [...] in each nostril, Nasally, Once a day. Referral To:[facility] Otolaryngology Reason:Urgent Appointment Consult and Treat * Procedure Codes: * Preventive Medicine: Counseling: [...] tobacco use and urged to quit. 1 04/13/2024 * Follow Up: A s Scheduled (Reason: OV) * Images: * Sign off status: Completed true * Provider: Maria Carter MD Date: 04/13/2024 Generated for Ravindra petersen/Faxing/eTransmitting on: 1 05/02/2024 01:43 PM EST History [...] EYES: eomi, perrla, anicte luke, conjugate EARS: bilateral hearing lo ss, right eardrum mild scarring otherwise normal, left eardrum mild scarring perforation superior membrane, no other abnormality little cerumen NOSE: septum intact NECK/THYROID: no jugular venous [...] PSYCH: alert, oriented ORAL CAVITY: normal, unremarkable Consultation Request Notes Referral Date Referring Provider Referred Provider Modesta hawthorne 02/10/2025 Wally [facility], of [facility], [facility] Urgent Appointment Consult and Treat
[2025-03-01 10:55] VITALS: BP 120/70; PULSE 56; O2SAT 95; BMI 34.0
--- NOTE | 2025-03-01 10:55 | A.OFFVIS_ITS ---
Vital Signs 03/01/25 10:55 Height 5 ft 7 in Weight 217 lb 2.485 oz BMI 34.0 BP 120/70 Blood Pressure Location Lt brachial Position Sitting Pulse 56 Pulse Source Pulse Oximeter Pulse Oximetry (%) 95 Oxygen Delivery Method Room Air Intake Visit Reasons: ROBIN/Cough Automatic Punch Press Operator Required: No Standard Machine Stitcher: Standard Machine Stitcher offered & declined Accompanied by: Spouse Allergies latex (LATEX) Allergy (Unknown, Verified 03/01/25 11:01) HIVES HPI Comments Details: The patient is a 74-year-old gentleman with a known history of left-sided paralyzed diaphragm and obstructive sleep apnea. Patient states that he has been using his CPAP every night. CPAP therapy has been affecting beneficial. He does use it for more than 4 hours a night. He does get supplies through his [employer] company, [employer]. I did call them and did send a script for him to continue getting supplies. In the meantime I did download the machine. His AHI is down to less than 1 which is reassuring. Current pressures are adequate. Therefore we have to adjust anything at this time. His machine seems to be worse in working order will continue , but, sometimes he wakes up with the machine. It may be that his pressures are going up and he wakes up from the pressures. In the meantime he does have issues with shortness of breath at times. Unfortunately he did gain some weight since we last spoke. The patient also has had issues with the elevated diaphragm on the left. The patient is also said pulmonary nodules. He did have a chest x-ray which I did review from 07/29/2023 at [facility] which is considered abnormal with elevated hemidiaphragm. Therefore, I will request a CT scan of the chest to better address the elevated diaphragm in the atelectasis and also better assess his pulmonary nodules. The patient also has a postnasal drip. He does have underlying allergies. Will further treat him with optimizing his medications. He will be helpful to get some pulmonary function studies to assess his lung capacity at this time. Therefore, will continue using the CPAP. I did decrease the maximum pressure from 16-12. He will get a CT scan and PFTs and will follow-up. 03/19/2024 the patient is here for a pulmonary follow-up visit. Overall the patient has been doing well. He still has some dyspnea on exertion [id number] severity. We did review his pulmonary function studies which were reassuring. He does have a low normal total lung capacity and a low-normal diffusing capacity. In part due to his elevated hemidiaphragm. He did have a CT scan of the chest also though we personally reviewed. He has few pulmonary nodules that appear to be benign. Although we have to compare them to the previous CT scan that he had back at [facility]. In addition to that the atelectasis is persistent on the left base and no evidence of any significant disease there. The patient is going to work on exercise and also on weight loss to try to decrease the abdominal pressure and allow the lung to expand better. Otherwise will continue with current CPAP therapy. The CPAP therapy continues to be affecting beneficial and he use more than 4 hours a night. Will follow-up in a year's time with a repeat CT scan to follow-up with the pulmonary nodules. 05/04/2024 the patient is here for a sick visit. He has been coughing so last evaluated him. He was placed on prednisone also Z-Jim. Although he is not significantly better. Still coughing primarily at nighttime. At times is productive. Having hard time sleeping. No fevers or chills. Denies any chest pain. He does have a rescue inhaler that he has use seldom. He is going to start using a little bit more. Will try a nebulizer treatment in the office. Will start him on doxycycline and also cough medication. If the patient is no better we can also start him back on prednisone and also consider a steroid inhaler. His last CT scan was reassuring. Right now I do not appreciate any crackles or focal examination. He does have some postablation cough. 08/25/2024 the patient is here for a pulmonary follow-up visit. He has multiple complaints 1 complains he has been having noticing some shortness of breath with activity. Sgzi-ff-xgrnbogd severity. He attributes it to his cardiac condition in part. He does have AFib and it tends to go in and out of it. He did have PFTs back a year ago or so which demonstrating no evidence of any obstruction although possibly some small airways disease. Will go ahead and try him on a long-acting muscarinic antagonist to see if this provides some relief in his respiratory symptoms. In the meantime will continue to follow-up closely with Cardiology. The patient also has been having issues with his CPAP. He has been noticing some gasping at nighttime. Does not happen all the time but when it happens is pretty significant. I did download his CPAP. Seems like for the last 3 months his average pressure was around 8 cm of water but now his average pressures increased to about 10-11. He may be volume status issue. I did recommend he has can continue a low-sodium diet to minimize his fluid retention. He is not taking a diuretic at this time although he is take 1 in the past. He notices weight gain we can consider a short course of diuretics. For now though he will try to sleep elevated to minimize the orthopnea symptoms that he has been describing. In addition to that I will increase the CPAP pressures from 12 cm to 15 cm to provide him some additional relief in case the PAP therapy needs to increase. The patient will return in 6 months at that point he will undergo a CT scan to follow-up with the pulmonary nodule noted on his last CAT scan from 02/2024 done at [facility]. The nodule measures 5 mm in size and was on the right hemithorax. 03/01/2025 the patient is here for pulmonary follow-up visit. Overall the patient has been doing well. Still having hard time sleeping. Can not seem to be able to sleep well so therefore he gets up and he does other things. He does use his CPAP. CPAP therapy has been affecting beneficial he does use it for more than 4 hours a night. AHI is down to 1.3. Average pressure is around 9-11 cm. Seems to be adequate for him. Will go ahead and prescribe Ambien since he has tried other medications and failed. He knows to take it while in bed because it is going to work very quickly. He will start with half a tablet he can worked up to a full tablet as needed. In the meantime the patient did have a CT scan of the chest. We did review it. The pulmonary nodule measuring 5 mm in size is unchanged from last year. In addition to that he does have an ectat ic aorta and also evidence of pulmonary vascular dilation suggest some pulmonary hypertension. We did talk about maintaining a low-sodium diet. Needs also maintain a normal blood pressure. He has lost a few lb which is good. She will continue to follow a low-sodium diet continue with the sleep aid in let us know how it works for him. Will follow-up in a year's time after her repeat CAT scan. [facility] Medical History (Updated 03/01/25 @ 21:34 by John Campbell MD) Aortic ectasia Dyspnea Chronic allergic rhinitis Pulmonary nodules Abnormal chest x-ray Paralysis, diaphragm Chronic cough ROBIN on CPAP Social History Patient Tobacco Use Status: Former Tobacco user Tobacco use type: Cigarette Years Smoked: 25 Review of Systems Const Reports difficulty sleeping and Reports weight loss Eyes Reports no additional complaints ENT Reports nasal congestion, Reports nasal discharge and Reports post nasal drip Card Denies chest pain and Reports dyspnea on exertion Resp Reports cough, Reports dyspnea on exertion and Reports wheezing GI Denies heartburn Musc Reports no additional complaints Skin/Breast Denies rash Neuro Reports no additional complaints Jorge Luis/Lymph Reports no additional complaints Aller/Immun Reports wheezing Physical Exam Vital Signs: Last Vital Signs Pulse 56 03/01/25 10:55 BP 120/70 03/01/25 10:55 Pulse Ox 95 03/01/25 10:55 Oxygen Delivery Method Room Air 03/01/25 10:55 BMI result Body Mass Index 34.0 Const General: comfortable HEENT General nose exam: Abnormal mucous membranes and turbinates present boggy Neck Neck: Yes supple Chest Chest palpation & inspection: normal inspection of the chest Resp Effort & Inspection: normal respiratory effort and no cough Auscultation: clear to auscultation bilaterally Cardio Heart sounds: S1 normal heart sound present and S2 normal heart sound present GI Palpation (GI): Soft to palpation Skin General skin exam: no rashes or lesions noted Extrem General: No clubbing, No cyanosis and Yes edema Assessment & Plan Assessment & Plan (1) ROBIN on CPAP: Code(s): G47.33 - Obstructive sleep apnea (adult) (pediatric) Category: Medical (2) Chronic cough: Code(s): R05.3 - Chronic cough Category: Medical (3) Paralysis, diaphragm: Code(s): J98.6 - Disorders of diaphragm Category: Medical (4) Pulmonary nodules: Code(s): R91.8 - Other nonspecific abnormal finding of lung field Category: Medical (5) Chronic allergic rhinitis: Code(s): J30.9 - Allergic rhinitis, unspecified Category: Medical (6) Dyspnea: Code(s): R06.00 - Dyspnea, unspecified Category: Medical Qualifiers: Dyspnea type: dyspnea on exertion Qualified Code(s): R06.09 - Other forms of dyspnea (7) Aortic ectasia: Code(s): I77.819 - Aortic ectasia, unspecified site Category: Medical Plan continue APAP, adjusted pressures 6-12 CT chest 02/2026 start Ambien as needed continue nasocort Astelin nasal spray neti bottle rinsing at night weight management [place] as needed/ Albuterol vis nebulizer F/U 6 months Orders: Orders CT chest wo IV con 11 Months R91.8 - Other nonspecific abnormal finding of lung field Medications: New zolpidem (Ambien) 10 mg PO BEDTIME PRN 30 tabs 3RF insomnia 30 days Coding Level of Care Code Est Pt Level 4 (03349) Diagnoses ROBIN on CPAP G47.33 Chronic cough R05.3 Paralysis, diaphragm J98.6 Pulmonary nodules R91.8 Chronic allergic rhinitis J30.9 Dyspnea on exertion R06.09 Dyspnea type: dyspnea on exertion Aortic ectasia I77.819 Time Spent (min) 18
--- OUTSIDE RECORDS SUMMARY | 2025-03-01 13:42 | XMS_ITS | Patient Health Record ---
Author Organization [facility] Address [address] [place] [address] Care Team Providers Care Sanitation Laborer Name Role Phone Wally Carter Primary Care [...] Date Coverage End Date [employer] [address] [address] [place] [address] [id number] Darinel Boyer Self - patient is the insured Medical (General) History Medical History History ICD Code Pulmonary nodule Pneumonia Obstructive sleep apnea Allergic rhinitis Hyperlipidemia Atrial fibrillation Degenerative disease of the lumbar spine Coronary Artery Disease Surgical History Surgery Date(Month/Year) Historical lumbar spine surgery Historical Cardiac stent
--- OUTSIDE RECORDS SUMMARY | 2025-03-01 13:43 | XMS_ITS | Clinical Summary ---
Author Organization [facility] Address [address] [place] [address] Phone Care Team Providers Care Vehicle Safety Inspector Name Role Phone Wally Carter MD Primary Care Provider [phone] Allergies Active Allergy Reactions Criticality Noted Date [...] this topic Medical Devices Implanted Type Area Pressure Vessel Inspector Device Identifier Shelf Expiration Date Model / [...] MEDEX SUPPLEMENT MEDICARE PART A & B [facility] MEDEX SUPPLEMENT MEDICARE PART A & B [employer] MEDEX SUPPLEMENT MEDICARE PART A & B [employer] MEDEX SUPPLEMENT MEDICARE PART A & B [facility] MEDEX SUPPLEMENT MEDICARE PART A & B [employer] MEDEX SUPPLEMENT Care Teams Vehicle Safety Inspector Relationship Specialty Start Date End Date Wally Carter MD [address] [place] [address] Dr FrancekeLISETH [id number] PCP - General Medical Oncology 01/01/24 Additional Source Comments The information contained in this document represents components of the legal health record. It is not the complete legal health record.[facility]
--- OUTSIDE RECORDS SUMMARY | 2025-03-01 13:43 | XMS_ITS | Clinical Summary ---
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 He did have a 48-hour civil engineering professor completed in September which showed no evidence of significant bradycardia or pauses. We will once again repeat a 24-hour civil engineering professor. Encounters Date Type Department Care Team Description 12/15/2024 8:30 AM EDT Ancillary Procedure [facility] [address] [place] [address] Coronary artery disease involving [place] coronary artery of [place] heart without angina pectoris from Last 3 Months Surgical History Surgery [...] 8:40 AM EDT Coronary artery disease involving [place] coronary artery of [place] heart without angina pectoris from Last 3 [...] ECGinterpretation was somewhat limited by electrical artifact. Warren Reyes MD CV ECHO PROCEDURES Final Resul t from Last 3 Months Insurance MEDICARE [facility] Care Teams Rope Silica Machine Operator Relationship Specialty Start Date End Date Wally Carter MD [address] [address] PCP - General 07/27/16
--- OUTSIDE RECORDS SUMMARY | 2025-03-01 13:43 | XMS_ITS | Patient Health Record ---
Author Organization Wally Carter III, MD Address [address] [place] [address] Care Team Providers Care Hearing Care Practitioner Name Role Phone Dr. Wally Carter III Primary Care Provider [phone] Allergies Allergen (clinical drug ingredient) Drug/Non Drug Allergy documented on EMR Reaction Allergy Type Onset Date Status No Known Food Allergy Unknown Drug Allergy Active Latex Latex Unknown Allergy Active Results Component Value Reference Range Notes XR tibia fibula RT 2V Reviewed date:07/11/2024 08:46:00 PM Interpretation: Performing Lab: Notes/Report: [address] [address] XRay Report Signed Patient: Darinel Boyer MR#: [id number] 008 : 1950 Acct:[id number] Age/Sex: 74 / M ADM Date: 07/10/24 Loc: HO.ED Attending Dr: Ordering Physician: Layla Chowdary Date of Service: 07/10/24 Procedure(s): XR tibia fibula RT 2V Accession Number(s): [id number] cc: Wally Carter MD; Layla Chowdary EXAMINATION: [...] in OV> 07/10/24916 DD/ 1 TD/TT: 07/10/24911 Learning And Development Manager: [place] [address] XRay Report Signed Patient: Herman Boyer MR#: [id number] 008 : 1950 Acct:[id number] Age/Sex: 74 / M ADM Date: 07/10/24 Loc: HO.ED Attending Dr: Ordering Physician: Layla Chowdary Date of Service: 07/10/24 Procedure(s): XR tib ia fibula RT 2V Accession Number(s): [id number] cc: Wally Carter MD; Layla Chowdary EXAMINATION: [...] in OV> 07/10/24916 DD/ 1 TD/TT: 07/10/24911 Learning And Development Manager: Complete Blood Count Auto Di ff Reviewed date:12/27/2024 08:27:15 AM Interpretation: Performing Lab:[facility], [address] [place] [phone] Notes/Report: White Blood Count 5.2 4.8-10.8 X10*3/uL Red Blood Count 4.96 4.60-5.80 X10*6/uL Hemoglobin 14.1 14.0-18.0 g/dl Hematocrit 42.9 42.0-52.0 % Mean Corpuscular Volume 86.5 80.0-98.0 fL Mean Corpuscular Hemoglobin 28.4 27.0-33.0 pg Mean Corpuscular HGB Conc 32.9 31.0-36.0 g/dl Red Cell Distribution Width 14.6 11.0-16.0 % Platelet Count 195 160-400 X10*3/uL Mean Platelet Volume 10.4 9.4-12.4 fL Neutrophils Percent Auto 64.6 45-73 % Imm Gran Pct Auto 0.4 0.0-0.4 % Lymphocytes Percent Auto 22.8 20-40 % Monocytes Percent Auto 9.3 2-11 % Eosinophils Percent Auto 2.1 0-4 % Basophils Percent Auto 0.8 0-2 % NRBC Pct Auto 0.0 0.0-0.2 /100WBC Neutrophils Absolute Auto 3.4 2.0-8.3 x10*3/u L Imm Gran Abs Auto 0.02 0.00-0.03 X10*3/uL Lymphocytes Absolute Auto 1.2 1.2-4.9 X10*3/u L Monocytes Absolute Auto 0.5 0.1-1.2 X10*3/uL Eosinophils Absolute Auto 0.1 0.0-0.4 X10*3/u L Basophils Absolute Auto 0.0 0.0-0.2 X10*3/uL NRBC Abs Auto 0.000 0.0-0.012 X10*3/uL Comprehensive [place]. Panel Fa st Reviewed date:12/27/2024 08:27:15 AM Interpretation: Performing Lab:[facility], [address] [place] [phone] Notes/Report: Sodium 142 135-145 mmol/L Potassium 4.8 3.3-5.1 mmol/L Chloride 105 96-108 mmol/L Carbon Dioxide 28 22-29 mmol/L Anion Gap 14 12-20 Blood Urea Nitrogen 20 9-16 mg/dL Creatinine 0.95 0.5-1.4 mg/dL Estimated Glomerular Filt Rate > 60 Chronic Kidney Disease: Estimated GFR < 60 mL/min/1.73m2 Severe Kidney Disease: Estimated GFR < 15 mL/min/1.73m2 Glucose Fasting 107 60-99 mg/dL A fasting glucose from 100-125 mg/dl is considered impaired (pre-diabetes). Calcium 9.0 8.4-10.2 mg/dL Bilirubin Total 0.8 0.0-1.0 mg/dL Aspartate Amino Transferase 35 5-37 U/L Alanine Aminotransferase 33 0-40 U/L Total Protein 6.5 6.5-8.0 g/dL Albumin Level 4.1 3.5-5.0 g/dL Alkaline Phosphatase 98 39-117 U/L Lipid Panel Reviewed date:12/27/2024 08:27:15 AM Interpretation: Performing Lab:[facility], [address] [place] [phone] Notes/Report: Triglycerides 44 <150 mg/dL Desirable Triglyceride: less than 150 mg/dL Borderline High Triglyceride 150-199 mg/dL High Triglyceride: 200-499 mg/dL Very High Triglyceride: greater than or equal to 5OO mg/dL Cholesterol 140 <200 mg/dL Desirable Cholesterol: less than 200 mg/dL Borderline High Cholesterol: 200-239 mg/dL High Cholesterol: greater than 239 mg/dL LDL Cholesterol Calculated 73 <100 mg/dL Desirable LDL: less than 100 mg/dL Near Optimal/Above Optimal LDL: 110-129 mg/dL Borderline High LDL: 130-159 mg/dL High LDL: 160-189 mg/dL Very High LDL: greater than or equal to 190 mg/dL HDL Cholesterol 59 >40 mg/dL Desirable HDL: greater than 40 mg/dL Note: This HDL assay may give artificially low results in patients with liver disease. Prostate Specific Antigen Reviewed date:12/27/2024 08:27:15 AM Interpretation: Performing Lab:[facility], [address] [place] [phone] Notes/Report: Prostate Specific Antigen 0.85 <0.05-4.0 ng/mL PSA methodology: Murray Alinity i Chemiluminescent Microparticle Immunoassay (CMIA) Testosterone, Total Reviewed date:01/15/2025 06:22:56 AM Interpretation: Performing Lab:[facility], [address] [place] [phone] Notes/Report: Testosterone, Total 763 440-3995 ng/dL Men with clinically significant hypogonadal symptoms and testosterone values repeatedly in the range of the 200-300 ng/dL or less, may benefit from testosterone treatment after adequate risk and benefits counseling. For additional information, please refer to http://education.[employer]uk[employer]/fa q/ TotalTestosteroneLCM [email or web address] (This link is being provided for informational/ educational purposes only.) This test was developed and its analytical performance characteristics have been determined by [email or web address] [place], [place]. It has not been cleared or approved by the U.S. Food and Drug Administration. This assay has been validated pursuant to the CLIA regulations and is used for clinical purposes. THIS TEST WAS PERFORMED AT: [employer] [facility] [address] LOUISE PLATT MD,PHD CT chest wo con Reviewed date:02/14/2025 05:13:43 PM Interpretation: Performing Lab: Notes/Report: [address] [address] [address] Scan Report Signed Patient: Darinel Boyer MR#: [id number] 008 : 1950 Acct:[id number] Age/Sex: 74 / M ADM Date: 02/09/25 Loc: HO.CT Attending Dr: John Campbell MD Ordering Physician: John Campbell MD Date of Service: 02/09/25 Procedure(s): CT chest wo IV con Accession Number(s): [id number] cc: Wally Carter MD; John Campbell MD Report Number: [id number]: Total DLP = 231.00 mGy-cm Reason for Exam: R91.8 - Other nonspecific abnormal finding of lung field CLINICAL HISTORY: R91.8 - Other nonspecific abnormal finding of lung field CT chest without IV contrast. COMPARISON: CT chest dated 02/18/24 at 07:35 EST FINDINGS: Visualized thyroid is unremarkable. No supraclavicular or axillary lymphadenopathy. Main pulmonary artery is enlarged measuring up to 3.1 cm. This can be associated with pulmonary hypertension. Ascending aortic ectasia measuring up to 4.2 cm. Coronary artery calcifications and/or stents present within the LAD. Aortic annular calcifications. Normal esophagus. No mediastinal lymphadenopathy. No pleural effusion. Elevation of the left hemidiaphragm, similar to prior imaging. Minimal atelectasis along the left lung base adjacent to the diaphragm. Trachea and central airways are clear. No significant bronchial wall thickening. No bronchiectasis. Right middle lobe 5 mm pulmonary nodule (series 5, image 80), stable. No new or growing pulmonary nodule identified. Partially visualized left renal cystic lesion measuring 2.3 cm, similar to prior imaging. Flowing marginal osteophytes along the mid to lower thoracic spine. No acute fracture or suspicious bone lesion. IMPRESSION: 1. Stable right middle lobe 5 mm pulmonary nodule. No further specific follow-up recommendations. 2. Persistent elevation of the left hemidiaphragm. 3. Stable ascending aortic ectasia measuring up to 4.2 cm. Enlarged main pulmonary artery can be associated with hypertension. This document has been electronically signed by: Ancelmo Gonzalez MD on 02/09/2025 16:40:04 Dictated By: Ancelmo Gonzalez MD Signed By: <Electronically signed by Ancelmo Gonzalez MD in OV> 02/09/25 1641 DD/ 1640 TD/TT: 02/09/25 1640 Learning And Development Manager: [address] [address] [address] Scan Report Signed Patient: Herman Boyer MR#: [id number] 008 : 1950 Acct:[id number] Age/Sex: 74 / M ADM Date: 02/09/25 Loc: HO.CT Attending Dr: John Campbell MD Ordering Physician: John Campbell MD Date of Service: 02/09/25 Procedure(s): CT di st wo IV con Accession Number(s): [id number] cc: Wally Carter MD; John Campbell MD Report Number: [id number]: Total DLP = 231.00 mGy-cm Reason for Exam: R91 .8 - Other nonspecific abnormal finding of lung field CLINICAL HISTORY: R9 1.8 - Other nonspecific abnormal finding of lung field CT chest without IV contrast. COMPARISON: CT chest dated 02/18/24 at 07:35 EST FINDINGS: Visualized thyroid i s unremarkable. No supraclavicular o r axillary lymphadenopathy. Main pulmonary arter y is enlarged measuring up to 3.1 cm. This can be associated with pulmonary hypertension. Ascending aortic ectasia measuring up to 4.2 cm. [place] ry artery calcifications and/or stents present within the LAD. Aortic lamine lar calcifications. Normal esophagus. No mediastinal lymphadenopathy. No pleural effusion. Elevation of the left hemidiaphragm, similar to prior imaging. Minimal atelectasis along the left lung base adjacent to the diaphragm. Trachea and central airways are clear. No significant bronchial wall thickening. No bronchiectasis. Right middle lobe 5 mm pulmonary nodule (series 5, image 80), stable. No new or growing pulmonary nodule identified. Partially visualized left renal cystic lesion measuring 2.3 cm, similar to prior imaging. Flowing marginal osteophytes along the mid to lower thoracic spine. No acute fracture or suspicious bone lesion. IMPRESSION: 1. Stable right midd le lobe 5 mm pulmonary nodule. No further specific follow-up recommendations. 2. Persistent elevat ion of the left hemidiaphragm. 3. Stable ascending aortic ectasia measuring up to 4.2 cm. Enlarged main pulmonary artery can be associated with hypertension. This document has be en electronically signed by: Ancelmo Gonzalez MD on 02/09/2025 16:40:04 Dictated By: Ancelmo Gonzalez MD Signed By: <Electronically signed by Ancelmo Gonzalez MD in OV> 02/09/25 1641 DD/ 1640 TD/TT: 02/09/25 1640 Learning And Development Manager: Reason For Referral Reason Urgent Appointment Consult and Treat Diagnosis 1 Tinnitus, left ear ( H93.12) Diagnosis 2 Unspecified perforat ion of tympanic membrane, left ear (H72.92) Referral Organization Wally Carter III, MD Referring Provider First Name Wally Referring Provider Last Name Raul Referring Provider Speciality Internal M edicine Referred Provider [facility], [facility], [facility] Referred Provider Specialty Otolaryngolo gy General Notes DColleen 02/10/2025 04:30:03 PM > Referral, cover sheet and progress note faxed to Urgent line Referral Priority Urgent Medications Medication SIG (Take, Route, Frequency, Duration) [...] each nostril Nasally Once a day Active Immunizations Vaccine Route Administration Date Status [...] Status W/U Status Risk Notes Problem Obesity (356150849) Obesity (278.00) Active confirmed He is u nder the supervision with the bariatric physician who is helping him lose weight. He has lost 5 pounds since last October and will continue to do so gradually. I recommended regular exercise. Problem 9074988 Former smoker (Z87.891) Active confirmed He is highly motivated not to smoke. He has a plan for prevention of relapse in times of stress. Problem 402284159 Obesity (E66.9) Active confirmed He has lost 4 more pounds and is working on more. We made a plan to lose weight at a rate of 1 pound per week. Problem 538583164 Lumbar radiculopathy (M54.16) Active confirmed His chronic low back pain continues and occasionally is severe but recently has been mild. No change in his regimen was made. Problem 910361211 GERD (gastroesophagea l reflux disease) (K21.9) Active confirmed His reflux is well controlled with current medications. Problem Tinnitus of left ear (5117563765332) Tinnitus, left ear (H93.12) Active confirmed He is experiencing the new onset of tinnitus and was found to have a new perforation in the left ear. He has been referred to ENT for definitive diagnosis and treatment. He has been to ENT in the past for bilateral hearing loss and has bilateral hearing aids. Problem 011243615 Paroxysmal atrial fibrillation (I48.0) Active confirmed He remaiins anticoagulated. He is compliant with his medications. He has had paroxysms of atrial fibrillation recently. He spoke to the dry house operator who ordered a Holter monitor and gave him a follow-up appointment.He was in a regular sinus rhythm today. Problem Benign prostatic hyperplasia (610882017) BPH (benign prostatic hyperplasia) (N40.0) Active confirmed He arises from sleep once or twice a night to urinate. We reviewed lifestyle modification as a could reduce nocturia. Problem 047928192 Erectile dysfunction (N52.9) Active confirmed This problem ventura s been addressed with use of medication. Problem 04064277 Other and unspecified hyperlipidemia (E78.5) Active confirmed His lipids are currently well controlled and no change in his regimen was made today. Problem 568994359 Environmental allergies (Z91.09) Active confirmed He continues to take his allergy medication. The pollen season has resolved and he is improved but he is chronically allergic with rhinitis. Problem 56150063 Right sided sciatica (M54.31) Active confirmed This pain has essentially resolved. He is careful with heavy lifting. Problem 05905561 Hearing loss (H91.90) Active confirmed He has not noticed any change in his hearing. This problem will be followed carefully and if he experiences a loss and acuity he will be referred for amplification evaluation. Problem 827600983 Anticoagulation adequate (Z79.01) Active confirmed He has had no bleeding. Clopidogrel has been added to his regimen. Problem 02937405 Sleep apnea (G47.30) Active confirmed He continues to use the CPAP. He occasionally struggles with some mask. He was referred back to the company that supplies it and his newborn photographer for more comfortable device. Problem 91650502 Restless leg syndrome (G25.81) Active confirmed He will continu e on his current therapy. He finds it quite beneficial. Problem 364572864 Adenomatous polyp of colon (D12.6) Active confirmed I have recommended a colonoscopy every 5 years. Problem 2156589051175 Low testosterone (E29.1) Active confirmed He is not currently taking replacement. The value is being repeated. It is likely related to his obesity. Problem 182655386 Coronary artery disease of [place] artery of [place] heart with stable angina pectoris (I25.118) Active confirmed His blood pressure is 133/71 without the amlodipine. He is doing well. He has had no angina or palpitations or decompensation of congestive heart failure. No change in his medication was necessary today. He is up-to-date with cardiology. Problem [id number] Lipoma of torso (D17.1) Active confirmed He has a small apparent lipoma between 2 ribs. It had no malignant characteristics and will be observed carefully. Problem 620375066 Episodic memory loss (R41.3) Active confirmed He does not appear to have dementia at this time. He does not appear to have cognitive dysfunction. He has episodic loss of memory which may be within normal limits. This will be observed if it progresses he will have neuropsychologic al testing and neurology consultation and head CT. Problem 94413460 Elevated hemidiaphragm (J98.6) Active confirmed This was noted on a chest x-ray July 27, 2023 at [facility] emergency room. The report says it is unchanged compared to prior examinations. His pulmonary datastage consultant, Dr. Campbell, has ordered a CT scan of the chest. Vital Signs Heart Rate 74 /min 02/10/2025 Temperature 99.7 degrees Fahrenheit 02/10/2025 Respiratory Rate 16 /min 07/27/2024 Oximetry 98 % 07/27/2024 Blood pressure diastolic 71 mm Hg 02/10/2025 Height 68 in 02/10/2025 Blood pressure systolic 133 mm Hg 02/10/2025 Weight 218 lbs 02/10/2025 BMI 33.14 kg/m2 02/10/2025 Encounters Encounter Location Date Provider Diagnosis Wally Carter III, MD [address] [place] [address] [place] [address] 04/21/2024 Wally Schulz and unspecifie d hyperlipidemia E78.5 ; Paroxysmal atrial fibrillation I48.0 ; Sleep apnea G47.30 ; Obesity E66.9 ; Former smoker Z87.891 ; Coronary artery disease of [place] artery of [place] heart with stable angina pectoris I25.118 and BPH (benign prostatic hyperplasia) N40.0 Wally Carter III, MD [address] [place] [address] [place] [address] 04/29/2024 Wally Schulz and unspecifie d hyperlipidemia E78.5 ; Coronary artery disease of [place] artery of [place] heart with stable angina pectoris I25.118 ; Sleep apnea G47.30 ; Obesity E66.9 ; Former smoker Z87.891 ; Restless leg syndrome G25.81 ; Paroxysmal atrial fibrillation I48.0 ; Hearing loss H91.90 ; Anticoagulation adequate Z79.01 ; Environmental allergies Z91.09 ; BPH (benign prostatic hyperplasia) N40.0 and Low testosterone E29.1 Wally Carter III, MD [address] [place] [address] [place] [address] 07/27/2024 Wally Schulz and unspecifie d hyperlipidemia E78.5 ; Coronary artery disease of [place] artery of [place] heart with stable angina pectoris I25.118 ; Lumbar radiculopathy M54.16 ; Sleep apnea G47.30 ; GERD (gastroesophageal reflux disease) K21.9 ; Obesity E66.9 ; Restless leg syndrome G25.81 ; Former smoker Z87.891 and Hearing loss H91.90 Wally Carter III, MD [address] [place] [address] [place] [address] 09/25/2024 Wally Carter Other and unspecifie d hyperlipidemia E78.5 ; Coronary artery disease of [place] artery of [place] heart with stable angina pectoris I25.118 ; Obesity E66.9 ; Sleep apnea G47.30 ; GERD (gastroesophageal reflux disease) K21.9 ; Environmental allergies Z91.09 ; Restless leg syndrome G25.81 ; Anticoagulation adequate Z79.01 ; Lumbar radiculopathy M54.16 ; BPH (benign prostatic hyperplasia) N40.0 and Former smoker Z87.891 Wally Carter III, MD [address] [place] [address] [place] [address] 10/02/2024 Wally Carter Other and unspecifie d hyperlipidemia E78.5 ; Coronary artery disease of [place] artery of [place] heart with stable angina pectoris I25.118 ; Obesity E66.9 ; Former smoker Z87.891 ; Sleep apnea G47.30 ; GERD (gastroesophageal reflux disease) K21.9 ; Paroxysmal atrial fibrillation I48.0 ; Anticoagulation adequate Z79.01 ; Low testosterone E29.1 ; Hearing loss H91.90 and Lumbar radiculopathy M54.16 Wally Carter III, MD [address] [place] [address] [place] [address] 11/06/2024 Wally Carter Obesity E66.9 ; Li nary artery disease of [place] artery of [place] heart with stable angina pectoris I25.118 ; Former smoker Z87.891 ; Other and unspecified hyperlipidemia E78.5 ; Sleep apnea G47.30 ; GERD (gastroesophageal reflux disease) K21.9 ; Restless leg syndrome G25.81 ; Environmental allergies Z91.09 ; Hearing loss H91.90 ; Low testosterone E29.1 ; Paroxysmal atrial fibrillation I48.0 ; Anticoagulation adequate Z79.01 and Lumbar radiculopathy M54.16 Wally Carter III, MD [address] [place] [address] [place] [address] 12/29/2024 Wally Carter Former smoker Z87.89 1 ; Coronary artery disease 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01 ; Lumbar radiculopathy M54.16 and Obesity 278.00 Wally Carter III, MD [address] [place] [address] [place] [address] 05/06/2024 Wally Carter III, MD [address] [place] [address] [place] [address] 07/28/2024 Wally Carter Assessments Encounter Date Diagnosis (ICD Code) Assessment Notes T reatment Notes Treatment Clinical Notes 04/21/2024 Paroxysmal atrial fibrillation (ICD-10 - I48.0) He remaiins anticoagulated. He is compliant with his medications. He has had paroxysms of atrial fibrillation recently. He spoke to the dry house operator who ordered a Holter monitor and gave him a follow-up appointment. 04/21/2024 Other and unspecified hyperlipidemia (ICD-10 - E78.5) His lipids are currently stable aand no change in his therapy was needed today. 04/29/2024 Other and unspecified hyperlipidemia (ICD-10 - E78.5) His lipids are currently stable aand no change in his therapy was needed today. 04/29/2024 Coronary artery disease of [place] artery of [place] heart with stable angina pectoris (ICD-10 - I25.118) He was admitted to [facility] last weekend for anginal chest pain. A stress test was unremarkable. He is now home. He'll be seen in the office in the near future after blood work. 07/27/2024 Other and unspecified hyperlipidemia (ICD-10 - E78.5) His lipids are currently well controlled and no change in his regimen was made today. 07/27/2024 Coronary artery disease of [place] artery of [place] heart with stable angina pectoris (ICD-10 - I25.118) He was admitted to [facility] last weekend for anginal chest pain. A stress test was unremarkable. He is now home. He'll be seen in the office in the near future after blood work. 09/25/2024 Other and unspecified hyperlipidemia (ICD-10 - E78.5) His lipids are currently well controlled and no change in his regimen was made today. 09/25/2024 Coronary artery disease of [place] artery of [place] heart with stable angina pectoris (ICD-10 - I25.118) He was admitted to [facility] last weekend for anginal chest pain. A stress test was unremarkable. He is now home. He'll be seen in the office in the near future after blood work. 10/02/2024 Other and unspecified hyperlipidemia (ICD-10 - E78.5) His lipids are currently well controlled and no change in his regimen was made today. 10/02/2024 Coronary artery disease of [place] artery of [place] heart with stable angina pectoris (ICD-10 - I25.118) He wishes to remain off of the amlodipine which was given to him by the dry house operator. His blood pressure today is adequate. Will be followed closely until he sees dry house operator. 11/06/2024 Obesity (ICD-10 - E66.9) He has lost 4 more pounds and is working on more. We made a plan to lose weight at a rate of 1 pound per week. 11/06/2024 Coronary artery disease of [place] artery of [place] heart with stable angina pectoris (ICD-10 - I25.118) He wishes to remain off of the amlodipine which was given to him by the dry house operator. His blood pressure today is adequate. Will be followed closely until he sees dry house operator. 12/29/2024 Former smoker (ICD-10 - Z87.891) He is highly motivated not to smoke. He has a plan for prevention of relapse in times of stress. 12/29/2024 Coronary artery disease of [place] artery of [place] heart with stable angina pectoris (ICD-10 - I25.118) He wishes to remain off of the amlodipine which was given to him by the dry house operator. His blood pressure today is adequate. Will be followed closely until he sees dry house operator. 02/10/2025 Tinnitus, left ear (ICD-10 - H93.12) He is experiencing the new onset of tinnitus and was found to have a new perforation in the left ear. He has been referred to ENT for definitive diagnosis and treatment. He has been to ENT in the past for bilateral hearing loss and has bilateral hearing aids. 02/10/2025 Coronary artery disease of [place] artery of [place] heart with stable angina pectoris (ICD-10 - I25.118) His blood pressure is 133/71 without the amlodipine. He is doing well. He has had no angina or palpitations or decompensation of congestive heart failure. No change in his medication was necessary today. He is up-to-date with cardiology. 04/21/2024 Sleep apnea (ICD-10 - G47.30) He [...] 1 pound per week. 11/06/2024 Former smoker (ICD-10 - Z87.891) He is highly motivated not to smoke. He has a plan for prevention of relapse in times of stress. 12/29/2024 Obesity (ICD9-CM - 278.00) He is under the supervision with the bariatric physician who is helping him lose weight. He has lost 5 pounds since last October and will continue to do so gradually. I recommended regular exercise. 02/10/2025 Hearing loss (ICD-10 - H91.90) He has not noticed any change in his hearing. This problem will be followed carefully and if he experiences a loss and acuity he will be referred for amplification evaluation. 04/21/2024 Obesity (ICD-10 - E66.9) His body [...] the company that supplies it and his newborn photographer for more comfortable device. 09/25/2024 Sleep apnea (ICD-10 - G47.30) He continues to use the CPAP. He occasionally struggles with some mask. He was referred back to the company that supplies it and his newborn photographer for more comfortable device. 10/02/2024 Former smoker (ICD-10 - Z87.891) He is highly motivated not to smoke. He has a plan for prevention of relapse in times of stress. 11/06/2024 Other and unspecified hyperlipidemia (ICD-10 - E78.5) His lipids are currently well controlled and no change in his regimen was made today. 12/29/2024 BPH (benign prostatic hyperplasia) (ICD-10 - N40.0) He arises from sleep once or twice a night to urinate. We reviewed lifestyle modification as a could reduce nocturia. 02/10/2025 Low testosterone (ICD-10 - E29.1) He is not currently taking replacement. The value is being repeated. It is likely related to his obesity. 04/21/2024 Former smoker (ICD-10 - Z87.891) He is highly motivated not to smoke. He has a plan for prevention of relapse in times of stress. 04/29/2024 Former smoker (ICD-10 - Z87.891) He is [...] the company that supplies it and his newborn photographer for more comfortable device. 11/06/2024 Sleep apnea (ICD-10 - G47.30) He continues to use the CPAP. He occasionally struggles with some mask. He was referred back to the company that supplies it and his newborn photographer for more comfortable device. 12/29/2024 Lumbar radiculopathy (ICD-10 - M54.16) His chronic low back pain continues and occasionally is severe but recently has been mild. No change in his regimen was made. 02/10/2025 Former smoker (ICD-10 - Z87.891) He is highly motivated not to smoke. He has a plan for prevention of relapse in times of stress. 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 A stress test was unremarkable. He is now home. He'll be seen in the office in the near future after blood work. 04/29/2024 Restless leg syndrome (ICD-10 - G25.81) He will continue on [...] reflux is well controlled with current medications. 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 The report says it is unchanged compared to prior examinations. His pulmonary datastage consultant, Dr. Campbell, has ordered a CT scan of the chest. 02/10/2025 Paroxysmal atrial fibrillation (ICD-10 - I48.0) He remaiins anticoagulated. He is compliant with his medications. He has had paroxysms of atrial fibrillation recently. He spoke to the dry house operator who ordered a Holter monitor and gave him a follow-up appointment.He was in a regular sinus rhythm today. 04/21/2024 BPH (benign prostatic hyperplasia) (ICD-10 - N40.0) He arises from sleep once or twice a night to urinate. We reviewed lifestyle modification as a could reduce nocturia. 04/29/2024 Paroxysmal atrial fibrillation (ICD-10 - I48.0) He remaiins anticoagulated. He is compliant with his medications. He has had paroxysms of atrial fibrillation recently. He spoke to the dry house operator who ordered a Holter monitor and gave him a follow-up appointment. 07/27/2024 Restless leg syndrome (ICD-10 - G25.81) He will continue on his current therapy. He finds it quite beneficial. 09/25/2024 Restless leg syndrome (ICD-10 - G25.81) He will continue on his current therapy. He finds it quite beneficial. 10/02/2024 Paroxysmal atrial fibrillation (ICD-10 - I48.0) He remaiins anticoagulated. He is compliant with his medications. He has had paroxysms of atrial fibrillation recently. He spoke to the dry house operator who ordered a Holter monitor and gave him a follow-up appointment.He was in a regular sinus rhythm today. 11/06/2024 Restless leg syndrome (ICD-10 - G25.81) He will continue on his current therapy. He finds it quite beneficial. 12/29/2024 Anticoagulation adequate (ICD-10 - Z79.01) He has had no bleeding. Clopidogrel has been added to his regimen. 02/10/2025 Anticoagulation adequate (ICD-10 - Z79.01) He has had no bleeding. Clopidogrel has been added to his regimen. 04/29/2024 Hearing loss (ICD-10 - H91.90) He has not noticed any change in his hearing. This problem will be followed carefully and if he experiences a loss and acuity he will be referred for amplification evaluation. 07/27/2024 Former smoker (ICD-10 - Z87.891) He is [...] but he is chronically allergic with rhinitis. 12/29/2024 Episodic memory loss (ICD-10 - R41.3) He does not appear to have dementia at this time. He does not appear to have cognitive dysfunction. He has episodic loss of memory which may be within normal limits. This will be observed if it progresses he will have neuropsychological testing and neurology consultation and head CT. 02/10/2025 Lumbar radiculopathy (ICD-10 - M54.16) His chronic low back pain continues and occasionally is severe but recently has been mild. No change in his regimen was made. 04/29/2024 Anticoagulation adequate (ICD-10 - Z79.01) He [...] will be referred for amplification evaluation. 02/10/2025 Obesity (ICD9-CM - 278.00) He is under the supervision with the bariatric physician who is helping him lose weight. He has lost 5 pounds since last October and will continue to do so gradually. I recommended regular exercise. 04/29/2024 Environmental allergies (ICD-10 - Z91.09) He continues to take his allergy medication. The pollen season has resolved and he is improved but he is chronically allergic with rhinitis. 09/25/2024 BPH (benign prostatic hyperplasia) (ICD-10 - N40.0) [...] is likely related to his obesity. 04/29/2024 BPH (benign prostatic hyperplasia) (ICD-10 - N40.0) He arises from sleep once or twice a night to urinate. We reviewed lifestyle modification as a could reduce nocturia. 09/25/2024 Former smoker (ICD-10 - Z87.891) He is [...] atrial fibrillation recently. He spoke to the dry house operator who ordered a Holter monitor and gave [...] Order Date PROFILE, FASTING (COMPREHENSIVE METABOLI C) 08/08/2022 PROFILE, FASTING (COMPREHENSIVE METABOLI C) 12/29/2024 PROFILE, FASTING (COMPREHENSIVE METABOLI C) 09/25/2024 PROFILE, [...] C) 11/30/2020 PROFILE, FASTING (COMPREHENSIVE METABOLI C) 10/16/2021 PROFILE, FASTING (COMPREHENSIVE METABOLI C) 03/28/2023 PROFILE, FASTING (COMPREHENSIVE METABOLI C) 04/29/2024 PROFILE, FASTING (COMPREHENSIVE METABOLI C) 07/10/2021 PROFILE, FASTING (COMPREHENSIVE METABOLI C) 12/14/2022 PROFILE, FASTING (COMPREHENSIVE METABOLI C) 03/23/2019 PROFILE, RANDOM (COMPREHENSIVE METABOLIC ) 02/03/2020 LIPID PANEL 02/03/2020 LIPID PANEL 12/14/2022 LIPID PANEL 03/23/2019 LIPID PANEL 08/08/2022 LIPID PANEL 09/28/2020 LIPID PANEL 11/20/2018 LIPID PANEL 07/17/2018 LIPID PANEL 04/11/2021 LIPID PANEL 10/06/2019 LIPID PANEL 11/30/2020 LIPID PANEL 10/16/2021 VITAMIN B12 AND FOLATE 07/17/2018 B12 11/20/2018 PSA, TOTAL 10/16/2021 PSA, TOTAL 07/10/2021 PSA, TOTAL 12/29/2024 PSA, TOTAL 02/03/2020 PSA, TOTAL 08/08/2022 PSA, TOTAL 09/25/2023 PSA, TOTAL 11/06/2024 PSA, TOTAL 03/28/2023 PSA, TOTAL 04/29/2024 PSA, TOTAL+FREE 11/30/2020 CBC w DIFF 11/30/2020 CBC w DIFF 10/16/2021 CBC w DIFF 09/25/2024 CBC w DIFF 07/10/2021 CBC w DIFF 12/14/2022 CBC w DIFF 03/23/2019 CBC w DIFF 12/29/2024 CBC w DIFF 09/28/2020 CBC w DIFF 02/03/2020 CBC w DIFF 08/08/2022 CBC w DIFF 02/14/2022 CBC w DIFF 07/27/2024 CBC w DIFF 04/11/2021 CBC w DIFF 11/20/2018 CBC w DIFF 09/25/2023 CBC w DIFF 07/17/2018 CBC w DIFF 10/06/2019 TESTOSTERONE, TOTAL 07/17/2018 TESTOSTERONE, TOTAL 08/08/2022 CBC WITH AUTO DIFF 03/28/2023 CBC WITH AUTO DIFF 04/29/2024 CBC WITH AUTO DIFF 01/24/2024 SARS COV2 RNA RT PCR 11/11/2019 Lipid Panel 09/25/2023 Lipid Panel 03/28/2023 Lipid Panel 04/29/2024 Lipid Panel 09/25/2024 Lipid Panel 07/10/2021 Lipid Panel 12/29/2024 Lipid Panel 01/24/2024 Lipid Panel 02/14/2022 Lipid Panel 07/27/2024 PSA Free and Total 11/18/2020 Testosterone, Free/Total 12/14/2022 Testosterone, Total 11/06/2024 Next Appt Details Provider Name:Wally Carter , 04/13/2025 09:15:00 AM, [address] [place] [address] , [address], [place], [address], Provider Name:Wally Carter , 09/28/2025 09:30:00 AM, [address] [place] [address] [address], [place], [address], Insurance Providers Payer Name Payer Address Payer Phone Subscriber Number Group Number Insured Name Patient Relationship to Insured Coverage Start Date Coverage End Date MEDICARE NGS [address] [place] [phone] [id number] Darinel Boyer Self - patient is the insured 1 [employer] [facility] [address] [place], [place] [id number] Darinel Boyer Self - patient is the [...] flu symptoms Adenomatous polyp hepatic flexure colono iliana, Damon , 2023 Surgical History Surgery Date(Month/Year) No history endoscopy and colonoscopy at [facility] 01/10 024 Cardiac catheterization and angioplasty with a stent LAD, [facility] 09/2019 Drew, L45 disc decomression 06/2016 Right knee miniscus surgery 02/2015 COLONOSCOPY 2012 crush injury right third finger at work 2011 colonoscopy, Dr. Levy, donnie nomatous polyp transverse colon, Gastritis and adenomatous polyp hepatic flexure 2001 fracture right thumb renal biopsy resection of lipoma Hospitalization History Reason Date(Month/Year) No history Atrial fibrillation 02/2018
--- OUTSIDE RECORDS SUMMARY | 2025-03-01 13:43 | XMS_ITS | Encounter Summary ---
Author Organization [facility] Address [address] [place] [id number] Phone Care Team Providers Care Adapted Physical Education Aide Name Role Phone Wally Carter MD Primary Care Provider [phone] Encounter Details Date Type Department Care Team (Late st Contact Info) Description 01/14/2024 Procedure Pass [facility] Endoscopy Admitting Dept Virtual Department [address] [place] [address] Social History Tobacco Use Types Packs/Day Years [...] on filedocumented in this encounter Care Teams Adapted Physical Education Aide Relationship Specialty Start Date End Date Wally Carter MD [address] [place] [address] [address] [place] [address] PCP - General Medical Oncology 01/01/24 documented as of this encounter Additional Source Comments The information contained in this document represents components of the legal health record. It is not the complete legal health record.[facility]
== END 2025-03-01 11:41 | disposition home or self-care (01) ==
LOC: HO.HPS 10:54
PROVIDERS: PCP Internal Medicine Medical Oncology; Visit Provider Hospitalist
DX: G47.33 Obstructive sleep apnea (adult) (pediatric) (principal); R05.3 Chronic cough; J98.6 Disorders of diaphragm; R91.8 Other nonspecific abnormal finding of lung field; J30.9 Allergic rhinitis, unspecified; R06.09 Other forms of dyspnea; I77.819 Aortic ectasia, unspecified site
CPT/HCPCS: 99214

== ENCOUNTER → 2025-03-01 10:53 | Outpatient (BNVA) | payer MEDICARE, SELFPAY | PROVIDERS: PCP Internal Medicine Medical Oncology; Visit Provider Hospitalist | DX: G47.33 Obstructive sleep apnea (adult) (pediatric) (principal); Z99.89 Dependence on other enabling machines and devices; R05.3 Chronic cough; J98.6 Disorders of diaphragm | CPT/HCPCS: 99212 ==